=== PATIENT | female | born 1925 | race Caucasian/White ===

== ENCOUNTER 2016-08-23 05:23 | Inpatient (IN) | payer MEDICARE, OTHER ==
[~2016-08-23] VITALS: Ht 157.5 cm; Wt 49.7 kg
[~2016-08-23 05:23] MED LIST: ACET-2047 PO; ALEN70TA30 PO; ASPI81TA3 PO; CALC-450 PO; DOCU-144 PO; FENO145T25 PO; FURO20TA PO; GLIP-95 PO; LEVEM SC; LISI-313 PO; MTF1000T PO; MULT9LIQ4 PO; SIMV20TA97 PO
[2016-08-23] MEDS ORDERED: SOD CHLORIDE 0.9% 1,000 ML IV STA (05:31)
[2016-08-23] MEDS ORDERED: HYDROCHLOROTHIAZIDE 25 MG TAB PO ONE (06:00)
[2016-08-23 06:06] LABS: BASOPHILS % 0.3 % (0.0-2.0); HEMATOCRIT 42.8 % (37.0-47.0); LYMPHOCYTES # 0.9 10^3/ul (0.8-2.9); LYMPHOCYTES % 6.2 % (15.0-51.0); MEAN CORPUSCULAR HEMOGLOBIN 30.5 pg (29.0-33.0); MEAN CORPUSCULAR HGB CONC 32.8 g/dl (32.0-37.0); MEAN CORPUSCULAR VOLUME 93.1 fl (82.0-101.0); MEAN PLATELET VOLUME 8.4 fl (7.4-10.4); MONOCYTE # 0.9 10^3/ul (0.3-0.9); MONOCYTES % 6.4 % (0.0-11.0); NEUTROPHIL # 12.5 10^3/ul (1.6-7.5); NEUTROPHILS % 87.1 % (39.0-77.0); PLATELET COUNT 360 10^3/UL (140-440); RED CELL DISTRIBUTION WIDTH 13.9 % (11.5-14.5); UNCORRECTED WBC 14.4 10^3/ul (4.8-10.8); WHITE BLOOD COUNT 14.4 10^3/ul (4.8-10.8)
[2016-08-23 06:09] LABS: CONDITION 1
[2016-08-23 06:14] LABS: POTASSIUM 3.9 mmol/L (3.5-5.1)
[2016-08-23 06:16] LABS: ALBUMIN/GLOBULIN RATIO 1.21; BILIRUBIN,INDIRECT 0.2 mg/dl (0-1.1); BILIRUBIN,TOTAL 0.2 mg/dl (0.2-1.3); CREATININE 0.83 mg/dl (0.44-1.00); TOTAL PROTEIN 7.3 g/dl (6.1-8.1)
[2016-08-23 06:17] LABS: CALCIUM 9.9 mg/dl (8.4-10.2)
[2016-08-23 06:35] LABS: TROPONIN-I 1.14 ng/ml (0.00-0.12)
[2016-08-23 06:37] LABS: ADD UMIC YES; URINE BILIRUBIN (Dip) NEGATIVE (NEGATIVE); URINE BLOOD (Dip) TRACE (NEGATIVE); URINE COLOR YELLOW (YELLOW); URINE KETONES (Dip) 15 (NEGATIVE); URINE LEUKOCYTE ESTERASE (Dip) NEGATIVE (NEGATIVE); URINE NITRITE (Dip) NEGATIVE (NEGATIVE); URINE TOTAL PROTEIN (Dip) 1+ (NEGATIVE); URINE UROBILINOGEN (Dip) 0.2 E.U./dL (0.1-1.0)
[2016-08-23 06:44] LABS: BACTERIA,URINE MODERATE; SQUAMOUS EPITHELIAL CELL,UR MANY; URINE RBCS 0-2 /HPF (0)
--- NOTE | 2016-08-23 06:54 | RADRPT ---
PROCEDURE: XR Chest. CLINICAL INDICATION: Abdominal pain TECHNIQUE: 2 AP views of the chest were obtained COMPARISON: Chest x-ray dated 12/28/2015 FINDINGS: Lung volumes are low. There are right lower lobe interstitial opacities. No pleural effusion or pn eumothorax is seen. The cardiomediastinal silhouette is mildly enlarged . Calcifications are seen within the aortic arch. The osseous structures demonstrate senescent changes. IMPRESSION: 1. Right lower lobe interstitial opacities, new finding when compared to the prior examination, may reflect asymmetric interstitial edema or pneumonitis. 2. Mild cardiomegaly and aortic atherosclerosis. RPTAT: HH .Lacie Calderon MD, MD Date Time Electronically viewed and signed by .Lacie Calderon MD, on 08/23/2016 06:53 .G/
[2016-08-23] MEDS ORDERED: CEFEPIME 2GM/50 ML (PMX) 50 ML IVPB STA (06:58)
[2016-08-23] MEDS ORDERED: SODIUM CHLORIDE 0.9% 1L BAG IV* STA (06:58)
[2016-08-23] MEDS ORDERED: VANCOMYCIN 1 GM (PMX) 250 ML IVPB ONE (07:00)
[2016-08-23] MEDS ORDERED: LEVOFLOXACIN 750MG/D5W (PMX) 150 ML IVPB STA (07:09)
--- NOTE | 2016-08-23 07:09 | ERA ---
ER Documentation Chief Complaint Date/Time DATE: 08/23/16 TIME: 06:40 Chief Complaint PER SNF MORE ALTERED THAN NORMAL UNKNOWN LAST WELL TIME. HPI Patient unable to give a coherent history due to cognitive impairment. History is obtained primarily from transferring medics, review of SNF and previous medical records and her daughter who arrived later. 89-year-old female with a history of hypertension, diabetes, dyslipidemia, CVA with left hemiparesis, recurrent urinary tract infections, hypothyroidism and dementia sent to the ED by ambulance from [facility] for evaluation of altered mental status as she is "more altered than usual". Patient is alert and cooperative. Denies chest pain or palpitations. No shortness of breath but has had a non-productive cough for over 1 week. Denies abdominal pain, nausea, vomiting, diarrhea or constipation. No headache or neck pain. Denies leg pain or swelling. No dysuria, polyuria, hematuria or flank pain. No fevers or chills. Patient states she feels well. ROS All systems reviewed and are negative except as per history of present illness. Medications Home Meds Reported Medications Cran/Vitc/Mannose/Inulin/Brom (Uti-Stat Liquid) 3,875 Mg/30 Ml Liquid, 3875 MG PO BID 08/23/16 Acetaminophen* (Acetaminophen*) 500 MG Extra Strength Tablet, 1000 MG PO Q4 Y for PAIN AND OR ELEVATED TEMP, TAB 08/23/16 Sennosides* (Senna Lax*) 8.6 Mg Tablet, 2 TAB PO QHS, TAB 08/23/16 Magnesium Hydroxide* (Milk Of Magnesia*) 400 Mg/5 Ml Oral.susp, 30 ML PO DAILY Y for CONSTIPATION, ML 08/23/16 Lidocaine (Lidoderm) 1 Each Adh..patch, 1 EACH TP DAILY 12 HOURS ON 12 HOURS OFF 08/23/16 Dextrose (Glucose Gel) 38 Gm Gel..gram., 22.5 GM PO PRN 08/23/16 Glucagon,Human Recombinant (Glucagon Emergency Kit) 1 Mg Kit, 1 MG IJ PRN, KIT 08/23/16 Na Phos,M-B/Na Phos,Di-Ba (Enema) 133 Ml Enema, 133 ML RC EVERY 3 DAYS Y for CONSTIPATION, ENEMA 08/23/16 Bisacodyl* (Bisacodyl*) 10 Mg Supp, 10 MG NH EVERY 48 HOURS Y for CONSTIPATION, SUPP 08/23/16 Cranberry Extract (Cranberry) 425 Mg Capsule, 425 MG PO DAILY, CAP 08/23/16 Insulin Detemir (Levemir) 100 Unit/1 Ml Vial, 15 UNIT SC QHS, VIAL 08/23/16 Acetaminophen* (Acetaminophen*) 650 Mg Tablet, 650 MG PO Q4 Y for PAIN AND OR ELEVATED TEMP, #30 TAB 12/28/15 Fenofibrate Nanocrystallized* (Tricor*) 145 Mg Tablet, 145 MG PO QAM, TAB 12/28/15 Simvastatin* (Zocor*) 20 Mg Tablet, 20 MG PO QHS, #30 TAB 12/28/15 Calcium Carbonate/Vitamin D3 (Oyster Shell Calcium-Vit D Tab) 1 Tab Tablet, 1 TAB PO BID, TAB 12/28/15 Multivit &Minerals/Ferrous Fum (MULTIVITAMIN LIQUID) 9 Mg/15 Ml Liquid, 3 MG PO QAM 12/28/15 Metformin* (Glucophage*) 1,000 Mg Tablet, 1000 MG PO BID, #60 TAB 12/28/15 Alendronate Sodium* (Fosamax*) 70 Mg Tablet, 70 MG PO ON TUESDAYS, #4 TAB 12/28/15 Docusate Sodium* (Colace*) 100 Mg Capsule, 200 MG PO QHS Y for CONSTIPATION, # 30 CAP 12/28/15 Aspirin* (Aspirin* Chew) 81 Mg Tab.chew, 81 MG PO DAILY, TAB.CHEW 12/28/15 Discontinued Reported Medications Lisinopril* (Lisinopril*) 5 Mg Tablet, 5 MG PO DAILY, #30 TAB 12/28/15 Insulin Detemir* (Levemir*) 100 U/Ml Vial, 30 UNIT SC HS, VIAL 12/28/15 Insulin Detemir* (Levemir*) 100 U/Ml Vial, 15 UNIT SC DAILY, VIAL 12/28/15 Furosemide* (Lasix*) 20 Mg Tablet, 20 MG PO DAILY, TAB 12/28/15 Glipizide* (Glipizide*) 10 Mg Tablet, 20 MG PO BID, TAB 12/28/15 Allergies Allergies: Coded Allergies: No Known Allergy (Unverified , 08/23/16) PMhx/Soc Reviewed in chart. As per HPI. History of Surgery: No Anesthesia Reaction: No Hx Neurological Disorder: Yes (DEMENTIA) Hx Respiratory Disorders: No Hx Cardiac Disorders: Yes (HTN) Hx Psychiatric Problems: Yes (DEPRESSION) Hx Miscellaneous Medical Probl: Yes (DM, HYPERTHYROID) Hx Alcohol Use: No Hx Substance Use: No Hx Tobacco Use: No Smoking Status: Unknown if ever smoked FmHx No stroke or cancer as per daughter Physical Exam Vitals Vital Signs Date Time Temp Pulse Resp B/P Pulse Ox O2 Delivery O2 Flow Rate FiO2 08/23/16 15:14 98 19 158/77 100 Nasal Cannula 2.0 08/23/16 12:26 90 18 150/70 100 Nasal Cannula 2.0 08/23/16 10:45 97.9 87 15 156/66 100 Nasal Cannula 3.0 08/23/16 08:48 86 19 142/102 100 Room Air 3.0 Nasal Cannula 08/23/16 07:00 100 22 125/103 100 Nasal Cannula 3.0 08/23/16 05:40 Nasal Cannula 2 08/23/16 05:28 96.0 130 18 129/59 93 Physical Exam Const: Alert, elderly but in no acute distress. Head: Atraumatic Eyes: Normal Conjunctiva ENT: Normal External Ears, Nose and Mouth. Pharynx: MM moist. No erythema or exudate. Neck: Full range of motion. No JVD. No meningismus. Resp: Breath sounds diminished at the bases with scattered rhonchi but no wheezes. Cardio: Tachycardia. Regular rate and rhythm, no murmurs or gallops Abd: Soft, non tender, non distended. Normal bowel sounds. No rebound or guarding. No masses. Skin: No petechiae or rashes Back: No midline or flank tenderness Ext: No cyanosis, or edema Neur: Awake and alert. Mental status normal for age. Left-sided weakness. Psych: Normal Mood and Affect Result Diagram: 08/23/16 0545 08/23/1645 Results 24 hrs Laboratory Tests Test 08/23/16 05:45 08/23/16 06:10 08/23/16 07:15 08/23/16 10:15 Activated Partial Thromboplast Time 27.5Sec Alanine Aminotransferase (ALT/SGPT) 28IU/L Albumin 4.0g/dl Albumin/Globulin Ratio 1.21 Alkaline Phosphatase 42IU/L Anion Gap 20 Aspartate Amino Transf (AST/SGOT) 28IU/L Basophils # 0.010^3/ul Basophils % 0.3% Blood Urea Nitrogen 30mg/dl Calcium Level 9.9mg/dl Carbon Dioxide Level 25mmol/L Chloride Level 106mmol/L Creatinine 0.83mg/dl Direct Bilirubin 0.00mg/dl Eosinophils # 0.010^3/ul Eosinophils % 0.0% Globulin 3.30g/dl Glucose Level 237mg/dl Hematocrit 42.8% Hemoglobin 14.0g/dl INR International Normalized Ratio 0.92 Indirect Bilirubin 0.2mg/dl Lipase 56U/L Lymphocytes # 0.910^3/ul Lymphocytes % 6.2% Mean Corpuscular Hemoglobin 30.5pg Mean Corpuscular Hemoglobin Concent 32.8g/dl Mean Corpuscular Volume 93.1fl Mean Platelet Volume 8.4fl Monocytes # 0.910^3/ul Monocytes % 6.4% Neutrophils # 12.510^3/ul Neutrophils % 87.1% Nucleated Red Blood Cells # 0.010^3/ul Nucleated Red Blood Cells % 0.0/100WBC Platelet Count 01294^3/UL Potassium Level 3.9mmol/L Prothrombin Time 12.4Sec Prothrombin Time Ratio 1.0 Red Blood Count 4.6010^6/ul Red Cell Distribution Width 13.9% Sodium Level 147mmol/L Total Bilirubin 0.2mg/dl Total Protein 7.3g/dl Troponin I 1.140ng/ml 1.790ng/ml White Blood Count 14.410^3/ul Urine Bacteria MODERATE Urine Bilirubin NEGATIVE Urine Calcium Oxalate Crystals FEW Urine Clarity HAZY Urine Color YELLOW Urine Glucose 0.1%% Urine Hemoglobin TRACE Urine Ketones 15 Urine Leukocyte Esterase NEGATIVE Urine Microscopic RBC 0-2/HPF Urine Microscopic WBC 0-2/HPF Urine Nitrite NEGATIVE Urine Specific [place] >=1.030 Urine Squamous Epithelial Cells MANY Urine Total Protein 1+ Urine Urobilinogen 0.2 E.U./dL Urine pH 5.0 Free Thyroxine 1.72ng/dl Lactic Acid Level 3.0mmol/L 4.1mmol/L Thyroid Stimulating Hormone (TSH) 0.825MIU/L Creatine Kinase 111IU/L Creatine Kinase Index 11.4 Creatinine Kinase MB (Mass) 12.60ng/ml Current Medications Medications (Trade) Dose Ordered Sig/Karthik Route PRN Reason Start Time Stop Time Status Last Admin Dose Admin Sodium Chloride (NS) 1,000 ml @ 1,000 mls/hr Q1H STAT IV 08/23/16 05:31 08/23/16 06:30 DC 08/23/16 05:48 Hydrochlorothiazide (Hydrochlorothiazide) 25 mg ONCE ONCE PO 08/23/16 06:00 08/23/16 06:01 DC Sodium Chloride 1550 ml 1,550 ml BOLUS OVER 2 HOURS STAT IV* 08/23/16 06:58 08/23/16 07:00 DC 08/23/16 07:04 Cefepime HCl 50 ml @ 100 mls/hr ONCE STAT IVPB 08/23/16 06:58 08/23/16 07:27 DC 08/23/16 07:25 Vancomycin HCl 250 ml @ 125 mls/hr ONCE ONCE IVPB 08/23/16 07:00 08/23/16 08:59 DC 08/23/16 08:41 Levofloxacin/ Dextrose (Levaquin 750 Mg/ D5W 150 ml (Pmx)) 150 ml @ 100 mls/hr ONCE STAT IVPB 08/23/16 07:09 08/23/16 08:38 DC 08/23/16 07:58 Aspirin (Aspirin) 325 mg ONCE ONCE PO 08/23/16 07:30 08/23/16 07:31 DC 08/23/16 07:25 Ondansetron HCl (Zofran Inj) 4 mg ER BRIDGE PRN IV NAUSEA AND/OR VOMITING 08/23/16 10:00 08/24/16 09:59 Acetaminophen (Tylenol Tab) 650 mg ER BRIDGE PRN PO MILD PAIN/FEVER 08/23/16 10:00 08/24/16 09:59 Acetaminophen (Tylenol Tab) 1,000 mg Q4 PRN PO PAIN AND OR ELEVATED TEMP 08/23/16 16:00 Acetaminophen (Tylenol Tab) 650 mg Q4 PRN PO PAIN AND OR ELEVATED TEMP 08/23/16 16:00 Aspirin (Aspirin) 81 mg DAILY PO 08/24/16 09:00 Bisacodyl (Dulcolax Supp) 10 mg DAILY PRN NH CONSTIPATION 08/23/16 16:00 Glucose (Glutose) 22.5 gm PRN PO 08/23/16 16:00 Docusate Sodium (Colace) 200 mg QHS PRN PO CONSTIPATION 12/23/16 16:00 Fenofibrate (Tricor) 145 mg QAM PO 08/24/16 09:00 Lidocaine (Lidoderm) 1 patch DAILY TD 08/24/16 09:00 Magnesium Hydroxide (Milk Of Mag) 30 ml DAILY PRN PO CONSTIPATION 08/23/16 16:00 Sodium Biphosphate/ Sodium Phosphate (Fleet Enema) 133 ml DAILY PRN NH CONSTIPATION 08/23/16 16:00 Senna (Senokot) 2 tab QHS PO 08/23/16 21:00 Miscellaneous Information 1 tab BID PO 08/23/16 21:00 UNV Miscellaneous Information 15 unit QHS SC 08/23/16 21:00 UNV Miscellaneous Information 3 mg QAM PO 08/24/16 09:00 UNV Miscellaneous Information 20 mg 20 mg QHS PO 08/23/16 21:00 UNV Cefepime HCl (Maxipime 2gm/50 ml (Pmx)) 50 ml @ 100 mls/hr Q12 IVPB 08/23/16 21:00 UNV Vancomycin HCl VANCOMYCIN PER PHARMACY PER PROTOCOL XX 08/23/16 16:00 UNV Sodium Chloride (NS) 1,000 ml @ 75 mls/hr [id number] IV 08/23/16 16:30 UNV IV Flush (NS 3 ml) 3 ml PER PROTOCOL IV 08/23/16 16:30 UNV Ondansetron HCl (Zofran Inj) 4 mg Q6H PRN IV NAUSEA AND/OR VOMITING 08/23/16 16:30 UNV Nitroglycerin (Nitroglycerin (Sl Tab) 0.4 Mg) 1 tab Q5M PRN SL CHEST PAIN 08/23/16 16:30 UNV Acetaminophen (Tylenol Tab) 650 mg Q6H PRN PO PAIN LEVEL 1-3 OR FEVER 08/23/16 16:30 UNV Morphine Sulfate (morphine) 2 mg Q4H PRN IV PAIN LEVEL 7-10 08/23/16 16:30 UNV Docusate Sodium (Colace) 100 mg Q12H PRN PO CONSTIPATION 08/23/16 16:30 UNV Magnesium Hydroxide (Milk Of Mag) 30 ml DAILY PRN PO CONSTIPATION 08/23/16 16:30 UNV Bisacodyl (Dulcolax Supp) 10 mg DAILY PRN NH CONSTIPATION 08/23/16 16:30 UNV Famotidine (Pepcid) 20 mg Q12 PO 08/23/16 21:00 UNV Enoxaparin Sodium (Lovenox) 40 mg DAILY SC 08/24/16 09:00 UNV RHYTHM STRIP INTERPRETATION: Time: 06:45. Sinus tachycardia. Ventricular rate 108. No ectopy. Indication: Altered level of consciousness. EKG: TIME: 05: 34. Sinus tachycardia. Ventricular rate 122. Normal NH and QRS. Left axis deviation. No acute ST-T wave changes. No ectopy. EP Interpretation: Abnormal EKG. EKG: TIME: 07:39. Sinus tachycardia. Ventricular rate 104. Normal NH and QRS. No acute ST-T wave changes. No ectopy. EP Interpretation: Abnormal EKG. IMAGING: PROCEDURE: XR Chest. CLINICAL INDICATION: Abdominal pain TECHNIQUE: 2 AP views of the chest were obtained COMPARISON: Chest x-ray dated 12/28/2015 FINDINGS: Lung volumes are low. There are right lower lobe interstitial opacities. No pleural effusion or pneumothorax is seen. The cardiomediastinal silhouette is mildly enlarged . Calcifications are seen within the aortic arch. The osseous structures demonstrate senescent changes. IMPRESSION: 1. Right lower lobe interstitial opacities, new finding when compared to the prior examination, may reflect asymmetric interstitial edema or pneumonitis. 2. Mild cardiomegaly and aortic atherosclerosis. RPTAT: HH .Lacie Calderon MD, MD Date Time Electronically viewed and signed by .Lacie Calderon MD, MD on 08/23/2016 06 :53 .G/ Procedures/MDM DOCUMENTS REVIEWED: ED nurse, prior records, jail facility records SEPSIS MANAGEMENT: Severe Sepsis Criteria: Multiple SIRS criteria including tachycardia, tachypnea and leukocytosis Infectious source: Pneumonia End organ damage indicated by: Lactate: 3.0 mmol/L Time of recognition of severe sepsis: 07: 00 Within 3 hours of recognition: Blood cultures x 2 before broad-spectrum antibiotics for health care acquired pneumonia 30 ml/kg NS bolus over one hour Completed Initial lactate 3.0 mmol/L Repeat lactate 4.2 mmol/L Septic Shock Assessment: Lactate 4.1mmol/L No hypotension Volume Re-assessment for Septic Shock (post 30 ml/kg bolus over 1 hour): Temp:97.9, BP:156/66, HR: 87, RR: 15, Pox: 100% on 3L Heart Regular rate & rhythm Lungs BS equal with scattered rhonchi but no rales or wheezes Skin Warm & dry. No Rash Cap Refill Less than 2 seconds Peripheral pulses 4+ in all extremities Critical Care Note: Critical care time not including other separately reportable procedures: 35 minutes Emergent fluid management while maintaining close respiratory support. Provision of immediate and broad-spectrum antibiotic therapy. Simultaneous assessment for possible sources in order to direct targeted therapy. Consideration for invasive and chemical support to prevent cardiopulmonary collapse in this patient with septic shock and NSTEMI. MEDICAL DECISION MAKIN-year-old female with a history of hypertension, diabetes, dyslipidemia, CVA with left hemiparesis, recurrent urinary tract infections, hypothyroidism and dementia sent to the ED by ambulance from [facility] for evaluation of altered mental status as she is "more altered than usual". Tachycardia, tachypnea and leukocytosis consistent with systemic inflammatory response syndrome with lactate of 3.0 consistent with severe sepsis secondary to pneumonia. Normal saline 30 cc/kg bolus given over 1 hour and antibiotics given for healthcare acquired acquired pneumonia after cultures. Repeat lactate increased to 4.1 consistent with septic shock. Elevated troponin but no acute ischemic EKG changes or chest pain consistent with NSTEMI. Aspirin given; heparin deferred as per Dr. Morgan. Hyperglycemia without DKA or HONK. Patient's infectious symptoms have not stabilized and the patient is at risk of rapid decompensation. The patient will be admitted to telemetry for antibiotic therapy pending cultures, urgent cardiology consult, further evaluation and management. Counseled patient and daughter regarding diagnosis, diagnostic results and plan for admission. CALLS/CONSULTS: Time 08:05, Dr. Morgan, Recommends Tele admit. PATIENT CARE TRANSITIONED: Time: 09:30, Dr. Morgan Departure Diagnosis: Primary Impression: Septic shock Additional Impressions: Pneumonia Qualified Code: J18.9 - Pneumonia of right lower lobe due to infectious organism NSTEMI (non-ST elevated myocardial infarction) Diabetes mellitus type 2 in nonobese Altered mental status, unspecified JANELLE GREER MD Aug 23, 2016 07:09
[2016-08-23] MEDS ORDERED: LEVEM SC (07:26)
[2016-08-23] MEDS ORDERED: CRAN425C PO (07:27)
[2016-08-23 07:28] LABS: INR 0.92; PROTIME 12.4 Sec (12.2-14.2)
[2016-08-23 07:29] LABS: PARTIAL THROMBOPLASTIN TIME 27.5 Sec (25.0-35.0)
[2016-08-23] MEDS ORDERED: DULR PR (07:29)
[2016-08-23] MEDS ORDERED: ASPIRIN 325 MG TAB PO ONE (07:30)
[2016-08-23] MEDS ORDERED: NA P133E3 RC (07:30)
[2016-08-23] MEDS ORDERED: GLUC1KIT IJ (07:31)
[2016-08-23] MEDS ORDERED: DEXT38GE15 PO (07:32)
[2016-08-23] MEDS ORDERED: LIDO700A6 TP (07:33)
[2016-08-23] MEDS ORDERED: MAGN400O4 PO (07:34)
[2016-08-23] MEDS ORDERED: SENN-53 PO (07:34)
[2016-08-23] MEDS ORDERED: ACET-141 PO (07:35)
[2016-08-23] MEDS ORDERED: CRAN3875 PO (07:36)
[2016-08-23] MEDS ORDERED: ONDANSETRON 4 MG INJ IV PRN ×2 (10:00→16:30)
[2016-08-23] MEDS ORDERED: ACETAMINOPHEN 325 MG TAB PO PRN ×2 (10:00→16:30)
[2016-08-23 10:52] LABS: CK-MB 12.6 ng/ml (0.0-2.4)
[2016-08-23 11:01] LABS: TROPONIN-I 1.79 ng/ml (0.00-0.12)
[2016-08-23] MEDS ORDERED: GLUCOSE GEL 15 GRAM TUBE PO SCH (16:00)
[2016-08-23] MEDS ORDERED: MAGNESIUM HYDROXIDE 30ML CUP PO PRN ×2 (16:00→16:30)
[2016-08-23] MEDS ORDERED: NA PHOSPHATE/BIPHOS 133 ML ENEMA PR PRN (16:00)
[2016-08-23] MEDS ORDERED: VANCOMYCIN IV PER PHARMACY XX SCH (16:00)
[2016-08-23] MEDS ORDERED: BISACODYL 10 MG SUPP PR PRN (16:00)
[2016-08-23] MEDS ORDERED: DOCUSATE SODIUM 100 MG CAP PO PRN ×2 (16:00→16:30)
[2016-08-23] MEDS ORDERED: NACL 0.9% 3 ML SYG IV SCH (16:30)
[2016-08-23] MEDS ORDERED: NITROGLYCERIN (SL) 0.4 MG TAB SL PRN (16:30)
[2016-08-23] MEDS ORDERED: METOPROLOL 5 MG INJ IV PRN (16:30)
[2016-08-23] MEDS ORDERED: morphine 2 MG INJ IV PRN (16:30)
[2016-08-23 18:10] LABS: CK-MB 9.57 ng/ml (0.0-2.4)
[2016-08-23 18:15] LABS: TROPONIN-I 2.2 ng/ml (0.00-0.12)
[2016-08-23] MEDS: SOD CHLORIDE 0.9% 1,000 ML IV SCH (18:37)
--- NOTE | 2016-08-23 19:23 | CONS ---
DATE OF ADMISSION: 08/23/2016 DATE OF CONSULTATION: 08/23/2016 REASON FOR CONSULTATION: Non-ST elevation myocardial infarction. REQUESTING PHYSICIAN: Dr. Morgan and Dr. Santamaria. HISTORY OF PRESENT ILLNESS: Ms. Ruiz is an 89-year-old female with a history of dementia, contract ures of the upper extremities, hypothyroidism, diabetes mellitus, dysphagia, hypertension, dyslipide mitzi, and osteoporosis who presented from her chronic care facility with worsening mental state, down from her baseline. Upon arrival in the emergency department, temperature of 96, blood pressure 129 /59, pulse 130, respiratory rate 18, saturating 92%. The patient's labs revealed sodium 147, potass ium 3.9, creatinine 1.8, BUN of 30, AST 28, ALT 28. Troponin 1.1. Lipase 56. INR 0.92. UA border line. The patient underwent a chest x-ray revealing right lower lobe interstitial opacities, mild c ardiomegaly, aortic atherosclerosis. The patient's electrocardiogram revealed sinus tachycardia, ra te of 122, with left axis deviation, poor R-wave progression across the anterior precordial leads, a nd nonspecific symptomatic. The patient subsequently has been treated with aspirin, levofloxacin, v ancomycin, cefepime, IV fluid hydration, and now awaits admit to the floor. The patient had troponi ns trended going from 1.14 to 1.79. The patient, at this time, is sleeping, difficult to arouse, an d does not respond to questions pertaining to chest pain or shortness of breath. PAST MEDICAL HISTORY: As above in HPI. MEDICATIONS CURRENTLY IN HOSPITAL: 1. Aspirin 81 mg daily. 2. Tricor 145 mg daily. 3. Lidoderm patch. 4. Lovenox 40 mg subcutaneous daily. 5. Idana. 6. Cefepime. 7. Pepcid. 8. IV fluid hydration 75 mL an hour. 9. Tylenol p.r.n. 10. Morphine p.r.n. 11. Colace p.r.n. 12. Dulcolax p.r.n. 13. Vancomycin. ALLERGIES: NO KNOWN DRUG ALLERGIES. SOCIAL HISTORY: No tobacco, ETOH, or illicit drug use. FAMILY HISTORY: No history of sudden cardiac or early CAD. REVIEW OF SYSTEMS: As above in HPI. CONSTITUTIONAL: No fevers, chills. PULMONARY: No current signs of respiratory compromise. No pneumonia by chest x-ray. GASTROINTESTINAL: No vomiting. GENITOURINARY: No hematuria. MUSCULOSKELETAL: Degenerative joint disease. PSYCHIATRIC: No documented psychiatric history. NEUROLOGIC: Dementia with altered mental state from demented state. ENDOCRINE: No documented history of diabetes mellitus. PHYSICAL EXAMINATION: VITAL SIGNS: Temperature 97.9, blood pressure 158/77, pulse 98, respiratory rate 19, saturating 100 % on 2 liters. GENERAL: The patient is sleeping, somewhat difficult to arouse. NECK: No jugular venous distention. CHEST: Upper airway sounds are rhonchorous sounds. Mildly decreased breath sounds at bases bilater ally. HEART: Tachycardic, regular rhythm, normal S1, S2, I/ systolic murmur. ABDOMEN: Positive bowel sounds, soft. EXTREMITIES: Multiple excoriations, 1+ pulses bilaterally, posterior tibial, and no significant low er extremity edema. LABORATORY DATA: As above in HPI. No further labs for my review at this time. IMAGING STUDIES: As above in HPI. No further imaging studies for my review at this time. ECG: As above in HPI. No further electrocardiograms for my review at this time. IMPRESSION: 1. Positive troponin consistent with non-ST elevation myocardial infarction. Possibly demand event in the setting of tachycardia. 2. Abnormal electrocardiogram with nonspecific ST and T abnormalities and poor R-wave progression a cross the anterior precordial leads in the setting of positive troponins. 3. Tachycardia consistent with sinus tachycardia in the setting of volume depletion. 4. Hypertension, mildly uncontrolled. 5. Altered mental state/encephalopathy. 6. Dyslipidemia. 7. Pneumonia by chest x-ray. Possible reason for patient's possible demand ischemia. 8. Diabetes mellitus. 9. Possible urinary tract infection. RECOMMENDATIONS: 1. At this time, would admit patient to telemetry monitoring to follow rhythm and rate control clos sage. 2. Would continue to trend the patient's cardiac enzymes, assess for any significant ongoing cardia c damage. 3. Continue the patient's aspirin prophylaxis for cardiovascular events. 4. We will give the patient beta alexandro as tolerated and able to swollen, and if not, we will give patient IV push p.r.n. beta alexandro to improve heart rate control. 5. Check a fasting lipid panel for general risk stratification and adjust the patient's lipid-lower ing medication as necessary. 6. Check a 2D echocardiogram to further assess patient's ejection fraction, wall motion, rule out a ny major valve abnormalities. 7. Continue the patient's antibiotics for treatment of pneumonia, possibly UTI, and follow up all c ulture data. 8. Continue the patient's IV fluid hydration in the setting of possible dehydration. Thank you for allowing me to take part in the care of this patient. I will continue to follow along very closely with you. Further recommendations will be made as the patient progresses through her inpatient hospital clinical course. Dictated By: RJ SOTO/FARZANA Conf#: [id number] DID#: [id number]
--- NOTE | 2016-08-23 19:52 | HP ---
DATE OF ADMISSION: 08/23/2016 HISTORY OF PRESENT ILLNESS: History is obtained from medical record and after discussion with the martha hunter's daughter. The patient is a poor historian due to old CVA. The patient is an 89-year-old f emale well known to me from previous admission. The patient has history of hypertension, diabetes, dyslipidemia, CVA with left hemiplegia. The patient also has dysphagia and is being fed p.o. diet. The patient, according to daughter, has been having cough for the last few weeks, and today she was noted to be altered more than usual. The patient apparently did not have any fever or chills. No reported vomiting, no reported diarrhea, no reported leg edema. No reported acute skin rash. The martha hunter did not have any seizure. No reported wheezing. The patient was seen in the ER and was note d to have white count of 14.4 with 87% neutrophils. Chest x-ray was positive for pneumonia in the r ight lower lobe. Lactic acid level was 3 upon presentation. The patient, however, was also noted t o have a troponin of 1.7. TSH and T4 within normal limits. The patient is being admitted for [facility] evaluation and management. REVIEW OF SYSTEMS: Limited as the patient is confused. No reported bleeding from any site. No rep ort any acute joint swelling. The patient is nonambulatory and spends her time in wheelchair and in the bed. The patient is able to eat pureed diet, and her albumin recently was 3.2. PAST MEDICAL HISTORY: As stated above. In addition, the patient has history of CVA and dementia. SOCIAL HISTORY: No smoking, no alcohol. MEDICATIONS: List prior to admission reviewed and reconciled. PHYSICAL EXAMINATION: GENERAL: The patient is lethargic but arousable. VITAL SIGNS: Temperature 97.9, pulse 87, respirations 15, blood pressure 156/66, O2 saturation 100% on 2 liters nasal cannula. HEENT: Atraumatic, normocephalic. Conjunctivae and lids normal. Extraocular movements intact. No se and ears normal. NECK: Supple. No mass, no thyromegaly. CHEST: Revealed diminished air entry at the right lung base. No use of accessory muscles. CARDIOVASCULAR: S1, S2 normal. No murmur, gallop, or rub. ABDOMEN: Soft, nondistended, nontender. No palpable mass. EXTREMITIES: No leg edema. The patient has contracture on the left side. Pedal pulses feeble. NEUROLOGIC: The patient is lethargic but arousable and has dense left hemiplegia. Only intermitten tly follows simple commands. LABORATORY DATA: Done this morning, WBC 14.4, hemoglobin 14, neutrophils 87. Sodium 147, potassium 3.9, BUN 30, creatinine 1.8, glucose 237, calcium 9.9, AST 28, ALT 28, alkaline phosphatase 42. Tr oponin 1.1. Lactic acid 3.0. IMPRESSION: 1. Healthcare facility acquired pneumonia. 2. Non-ST elevation myocardial infarction. 3. Hypertension. 4. Diabetes mellitus. 5. Dyslipidemia. 6. Old cerebrovascular accident. 7. Toxic metabolic encephalopathy. PLAN: The patient admitted on telemetry floor. The patient will be started on pureed diet and will be given IV vancomycin and cefepime and will be given IV fluids. The patient will be given aspirin , beta alexandro, and statins. The patient will be started on Levemir with sliding scale insulin. I spoke with the patient's daughter, and code status was discussed. She requested the patient be made DNR. A cardiac consult from Dr. Lou has also been obtained. The patient will have echocardiog edel, serial troponin. Further recommendation depends on the patient's hospital course. Dictated By: VALENTIN GASTON/FARZANA Conf#: [id number] DID#: [id number]
[2016-08-23] MEDS: LEVALBUTEROL (NEB) 0.63 MG/3 ML AMP HHN SCH (20:03)
[2016-08-23] MEDS: 1/2 NS + KCL 20 MEQ 1,000 ML IV SCH (20:23)
[2016-08-23] MEDS ORDERED: CALCIUM CARBONATE PO SCH (21:00)
[2016-08-23] MEDS ORDERED: VITAMIN D3 PO SCH (21:00)
[2016-08-23] MEDS ORDERED: [UNRECOGNIZED DRUG - OTHER] PO SCH (21:00)
[2016-08-23] MEDS ORDERED: NON-FORMULARY/PATIENT OWN MED (Simvastatin* (Zocor*) 20 MG) PO SCH (21:00)
[2016-08-23] MEDS ORDERED: CEFEPIME 2GM/50 ML (PMX) 50 ML IVPB SCH (21:00)
[2016-08-23] MEDS ORDERED: FAMOTIDINE 20 MG TAB PO SCH (21:00)
[2016-08-23] MEDS ORDERED: INSULIN DETEMIR 15 UNIT SC SCH (21:00)
[2016-08-23] MEDS: CEFEPIME 2GM/50 ML (PMX) 50 ML IVPB SCH (21:15)
[2016-08-23] MEDS: ATORVASTATIN 10 MG TAB PO SCH (22:55)
[2016-08-23] MEDS: METOPROLOL 25 MG TAB PO SCH (22:56)
[2016-08-23] MEDS: SENNA TAB PO SCH (22:56)
[2016-08-23] MEDS: CALCIUM/VITAMIN D (500/200) TAB PO SCH (22:56)
[2016-08-23 22:58] LABS: CK-MB 7.21 ng/ml (0.0-2.4)
[2016-08-23 23:01] LABS: TROPONIN-I 2.02 ng/ml (0.00-0.12)
[2016-08-23] MEDS: INSULIN DETEMIR [LEVEMIR] 3ML CART SC SCH (23:19)
[2016-08-23 23:24] VITALS: TEMP 99
[2016-08-24] VITALS (10 sets, daily range): BP systolic 145–165; BP diastolic 64–71; PULSE 58–77; RESP 16–20; Ht 157.5 cm; Wt 49.7 kg
[2016-08-24] MEDS: SOD CHLORIDE 0.9% 1,000 ML IV SCH ×2 (05:50→15:47)
[2016-08-24 07:30] LABS: BASOPHIL # 0.1 10^3/ul (0.0-0.1); BASOPHILS % 0.4 % (0.0-2.0); EOSINOPHILS # 0.1 10^3/ul (0.0-0.5); EOSINOPHILS % 0.7 % (0.0-7.0); HEMATOCRIT 32.1 % (37.0-47.0); HEMOGLOBIN 10.6 g/dl (12.0-16.0); LYMPHOCYTES % 16.3 % (15.0-51.0); MEAN CORPUSCULAR HEMOGLOBIN 31.2 pg (29.0-33.0); MEAN CORPUSCULAR HGB CONC 33.2 g/dl (32.0-37.0); MEAN PLATELET VOLUME 8.2 fl (7.4-10.4); MONOCYTE # 0.6 10^3/ul (0.3-0.9); MONOCYTES % 5.3 % (0.0-11.0); NEUTROPHIL # 9.4 10^3/ul (1.6-7.5); NEUTROPHILS % 77.3 % (39.0-77.0); PLATELET COUNT 243 10^3/UL (140-440); RED BLOOD COUNT 3.41 10^6/ul (4.20-5.40); RED CELL DISTRIBUTION WIDTH 13.9 % (11.5-14.5); UNCORRECTED WBC 12.2 10^3/ul (4.8-10.8); WHITE BLOOD COUNT 12.2 10^3/ul (4.8-10.8)
[2016-08-24 07:34] LABS: ALBUMIN 3.1 g/dl (3.3-4.9)
[2016-08-24 07:35] LABS: POTASSIUM 3.8 mmol/L (3.5-5.1)
[2016-08-24 07:36] LABS: PHOSPHORUS 2.3 mg/dl (2.5-4.9)
[2016-08-24 07:37] LABS: ALBUMIN/GLOBULIN RATIO 1.1; BILIRUBIN,INDIRECT 0.2 mg/dl (0-1.1); BILIRUBIN,TOTAL 0.2 mg/dl (0.2-1.3); CREATININE 0.79 mg/dl (0.44-1.00); MAGNESIUM 1.6 mg/dl (1.7-2.5); TOTAL PROTEIN 5.9 g/dl (6.1-8.1)
[2016-08-24 07:38] LABS: CALCIUM 8.8 mg/dl (8.4-10.2)
[2016-08-24 07:54] LABS: CONDITION 1
[2016-08-24] MEDS: LEVALBUTEROL (NEB) 0.63 MG/3 ML AMP HHN SCH ×2 (08:15→19:30)
[2016-08-24] MEDS: ASPIRIN 81 MG TAB PO SCH (08:26)
[2016-08-24] MEDS: CALCIUM/VITAMIN D (500/200) TAB PO SCH ×2 (08:26→21:40)
[2016-08-24] MEDS: FENOFIBRATE 145 MG TAB PO SCH (08:26)
[2016-08-24] MEDS: FAMOTIDINE 20 MG TAB PO SCH (08:26)
[2016-08-24] MEDS: MULTIVITAMINS/MINERALS TAB PO SCH (08:26)
[2016-08-24] MEDS: LIDOCAINE 5% PATCH TD SCH (08:26)
[2016-08-24] MEDS: METOPROLOL 25 MG TAB PO SCH ×2 (08:27→21:40)
[2016-08-24] MEDS: ENOXAPARIN 40 MG/0.4 ML SYG SC SCH (08:30)
[2016-08-24] MEDS: 1/2 NS + KCL 20 MEQ 1,000 ML IV SCH (09:40)
[2016-08-24] MEDS: VANCOMYCIN 750 MG in SOD CHLORIDE 0.9% 150 ML IVPB SCH (12:35)
--- NOTE | 2016-08-24 12:47 | PN ---
Date/Time of Note Date/Time of Note DATE: 08/24/16 TIME: 12:45 Assessment/Plan VTE Prophylaxis VTE Prophylaxis Intervention: contraindicated Lines/Catheters IV Catheter Type (from Nrs): Peripheral IV Urinary Cath still in place: Yes Reason Cath still needed: skin wounds contaminated by urine Assessment/Plan Chief Complaint/Hosp Course 1. Healthcare facility acquired pneumonia - IV antibiotics 2. Non-ST elevation myocardial infarction - cardiology to evaluate 3. Hypertension - continue meds 4. Diabetes mellitus - monitor blood sugar Problems: Subjective 24 Hr Interval Summary Free Text/Dictation Patient has no complaints Exam/Review of Systems Vital Signs Vitals Vital Signs Date Time Temp Pulse Resp B/P Pulse Ox O2 Delivery O2 Flow Rate FiO2 08/24/16 11:25 98.7 60 20 145/64 98 08/24/16 08:30 Nasal Cannula 08/24/16 08:15 2.0 Intake and Output 08/23/16 08/23/16 08/24/16 15:00 23:00 07:00 Intake Total 200 ml Output Total 400 ml Balance -200 ml Exam Constitutional: frail, well developed Respiratory: diminished breath sounds Cardiovascular: regular rate and rhythm Gastrointestinal: non-tender, soft Results Result Diagram: 08/24/16 0642 08/24/16 0642 Results 24 hrs Laboratory Tests Test 08/23/16 17:30 08/23/16 21:50 08/23/16 23:04 08/24/16 06:42 Creatine Kinase 99 81 Creatine Kinase Index 9.7 8.9 Creatinine Kinase MB (Mass) 9.57 H 7.21 H Lactic Acid Level 2.2 Troponin I 2.200 *H 2.020 *H Bedside Glucose 187 Alanine Aminotransferase (ALT/SGPT) 31 Albumin 3.1 L Albumin/Globulin Ratio 1.10 Alkaline Phosphatase 29 L Anion Gap 14 Aspartate Amino Transf (AST/SGOT) 30 Basophils # 0.1 Basophils % 0.4 Blood Urea Nitrogen 20 Calcium Level 8.8 Carbon Dioxide Level 27 Chloride Level 108 Cholesterol Level 123 Cholesterol/HDL Ratio 2.0 Creatinine 0.79 Direct Bilirubin 0.00 Eosinophils # 0.1 Eosinophils % 0.7 Globulin 2.80 Glucose Level 73 # HDL Cholesterol 60 Hematocrit 32.1 #L Hemoglobin 10.6 #L Indirect Bilirubin 0.2 LDL Cholesterol, Calculated 47 Lymphocytes # 2.0 Lymphocytes % 16.3 Magnesium Level 1.6 L Mean Corpuscular Hemoglobin 31.2 Mean Corpuscular Hemoglobin Concent 33.2 Mean Corpuscular Volume 94.0 Mean Platelet Volume 8.2 Monocytes # 0.6 Monocytes % 5.3 Neutrophils # 9.4 H Neutrophils % 77.3 H Nucleated Red Blood Cells # 0.0 Nucleated Red Blood Cells % 0.0 Phosphorus Level 2.3 L Platelet Count 243 # Potassium Level 3.8 Red Blood Count 3.41 #L Red Cell Distribution Width 13.9 Sodium Level 145 H Total Bilirubin 0.2 Total Protein 5.9 #L Triglycerides Level 81 White Blood Count 12.2 H Test 08/24/16 07:55 08/24/16 11:21 Bedside Glucose 73 84 Medications Medications Current Medications Acetaminophen (Tylenol Tab) 1,000 mg Q4 PRN PO PAIN AND OR ELEVATED TEMP; Start 08/23/16 at 16:00 Acetaminophen (Tylenol Tab) 650 mg Q4 PRN PO PAIN AND OR ELEVATED TEMP; Start 08/23/16 at 16:00 Aspirin (Aspirin) 81 mg DAILY PO Last administered on 08/24/16at 08:26; Admin Dose 81 MG; Start 08/24/16 at 09:00 Glucose (Glutose) 22.5 gm PRN PO ; Start 08/23/16 at 16:00 Docusate Sodium (Colace) 200 mg QHS PRN PO CONSTIPATION; Start 08/23/16 at 16: 00 Fenofibrate (Tricor) 145 mg QAM PO Last administered on 08/24/16at 08:26; Admin Dose 145 MG; Start 08/24/16 at 09:00 Lidocaine (Lidoderm) 1 patch DAILY TD Last administered on 08/24/16at 08:26; Admin Dose 1 PATCH; Start 08/24/16 at 09:00 Sodium Biphosphate/ Sodium Phosphate (Fleet Enema) 133 ml DAILY PRN [place] CONSTIPATION; Start 08/23/16 at 16:00 Senna (Senokot) 2 tab QHS PO Last administered on 08/23/16at 22:56; Admin Dose 2 TAB; Start 08/23/16 at 21:00 Multivitamins/ Minerals 1 tab 1 tab QAM PO Last administered on 08/24/16 08: 26; Admin Dose 1 TAB; Start 08/24/16 at 09:00 Sodium Chloride (NS) 1,000 ml @ 75 mls/hr [id number] IV Last administered on at 18:37; Admin Dose 75 MLS/HR; Start 08/23/16 at 16:30 Ondansetron HCl (Zofran Inj) 4 mg Q6H PRN IV NAUSEA AND/OR VOMITING; Start at 16:30 Nitroglycerin (Nitroglycerin (Sl Tab) 0.4 Mg) 1 tab Q5M PRN SL CHEST PAIN; Start 08/23/16 at 16:30 Morphine Sulfate (morphine) 2 mg Q4H PRN IV PAIN LEVEL 7-10; Start 08/23/16 at 16:30 Docusate Sodium (Colace) 100 mg Q12H PRN PO CONSTIPATION; Start 08/23/16 at 16 :30 Magnesium Hydroxide (Milk Of Mag) 30 ml DAILY PRN PO CONSTIPATION; Start 08/23 at 16:30 Bisacodyl (Dulcolax Supp) 10 mg DAILY PRN [place] CONSTIPATION; Start 08/23/16 at 16:30 Enoxaparin Sodium (Lovenox) 40 mg DAILY SC Last administered on 08/24/16at 08: 30; Admin Dose 40 MG; Start 08/24/16 at 09:00 Metoprolol Tartrate (Lopressor) 25 mg BID PO Last administered on 08/24/16at 08 :27; Admin Dose 25 MG; Start 08/23/16 at 21:00 Metoprolol Tartrate 5 mg 5 mg Q4H PRN IV HR>110 Hold SBP<100; Start 08/23/16 at 16:30 Potassium Chloride/Sodium Chloride 1,000 ml @ 60 mls/hr [id number] IV Last administered on 08/23/16at 20:23; Admin Dose 60 MLS/HR; Start 08/23/16 at 17:00 Cefepime HCl (Maxipime 2gm/50 ml (Pmx)) 50 ml @ 100 mls/hr Q24H IVPB Last administered on 08/23/16at 21:15; Admin Dose 100 MLS/HR; Start 08/23/16 at 21: 00 Famotidine (Pepcid) 20 mg DAILY PO Last administered on 08/24/16at 08:26; Admin Dose 20 MG; Start 08/24/16 at 09:00 Calcium/Vitamin D (Oyster Shell/ Vit-D (500/200)) 1 tab BID PO Last administered on 08/24/16at 08:26; Admin Dose 1 TAB; Start 08/23/16 at 21:00 Insulin Detemir (Levemir) 15 unit QHS SC Last administered on 08/23/16at 23:19 ; Admin Dose 15 UNIT; Start 08/23/16 at 21:00 Atorvastatin Calcium 10 mg 10 mg DAILY@21 PO Last administered on 08/23/16at 22 :55; Admin Dose 10 MG; Start 08/23/16 at 21:00 Vancomycin HCl/ Sodium Chloride (Vancocin/NS) 150 ml @ 75 mls/hr Q24H IVPB Last administered on 08/24/16at 12:35; Admin Dose 75 MLS/HR; Start 08/24/16 at 09:00 Influenza Virus Vaccine (Fluzone) 0.5 ml ONCE ONCE IM* ; Start 08/26/16 at 09: 00; Stop 08/26/16 at 09:01 Guaifenesin/ Codeine Phosphate (Robitussin Ac Liquid Cup) 5 ml Q6 PRN PO COUGH ; Start 08/24/16 at 10:30 Miscellaneous Information (* Miscellaneous Pharmacy Order) 1 ea DAILY PRN XX PAIN; Start 08/24/16 at 10:30; Status UNV Miscellaneous Information (* Miscellaneous Pharmacy Order) 5 ea DAILY PO ; Start 08/25/16 at 09:00; Status UNV NEHA WILSON Aug 24, 2016 12:47
[2016-08-24] MEDS: GUAIFENESIN/CODEINE 5ML CUP PO PRN (15:23)
--- NOTE | 2016-08-24 16:11 | CONS ---
Date/Time of Note Date/Time of Note DATE: 08/24/16 TIME: 16:05 Assessment/Plan Assessment/Plan Additional Assessment/Plan Acute coronary syndrome with abnormal electrocardiogram, cardiomegaly, aortic atherosclerosis, hypertension, diabetes, UTI, Pneumonia with altered mental status with positive troponin's Hemodynamically stable Tachycardia resolved Continue Metoprolol Continue Insulin Continue Antibiotics Continue Lipitor and discontinue fenofibrate Continue GI and DVT Prophylaxis CXR AM Consultation Date/Type/Reason Admit Date/Time Aug 23, 2016 at 09:42 Social History Smoking Status: Never smoker Exam/Review of Systems Vital Signs Vitals Vital Signs Date Time Temp Pulse Resp B/P Pulse Ox O2 Delivery O2 Flow Rate FiO2 08/24/16 15:34 97.9 66 20 150/67 100 08/24/16 08:30 Nasal Cannula 08/24/16 08:15 2.0 Intake and Output 08/23/16 08/23/16 08/24/16 15:00 23:00 07:00 Intake Total 200 ml Output Total 400 ml Balance -200 ml Exam Psych: no complaints Head: atraumatic, normocephalic Eyes: EOMI, nl conjunctiva Neck: non-tender, supple Respiratory: diminished breath sounds Cardiovascular: regular rate and rhythm Gastrointestinal: nl liver, spleen, non-tender, soft Extremities: normal pulses Results Result Diagram: 08/24/16 0642 08/24/16 0642 Results 24 hrs Laboratory Tests Test 08/23/16 17:30 08/23/16 21:50 08/23/16 23:04 08/24/16 06:42 Creatine Kinase 99 81 Creatine Kinase Index 9.7 8.9 Creatinine Kinase MB (Mass) 9.57 H 7.21 H Lactic Acid Level 2.2 Troponin I 2.200 *H 2.020 *H Bedside Glucose 187 Alanine Aminotransferase (ALT/SGPT) 31 Albumin 3.1 L Albumin/Globulin Ratio 1.10 Alkaline Phosphatase 29 L Anion Gap 14 Aspartate Amino Transf (AST/SGOT) 30 Basophils # 0.1 Basophils % 0.4 Blood Urea Nitrogen 20 Calcium Level 8.8 Carbon Dioxide Level 27 Chloride Level 108 Cholesterol Level 123 Cholesterol/HDL Ratio 2.0 Creatinine 0.79 Direct Bilirubin 0.00 Eosinophils # 0.1 Eosinophils % 0.7 Globulin 2.80 Glucose Level 73 # HDL Cholesterol 60 Hematocrit 32.1 #L Hemoglobin 10.6 #L Indirect Bilirubin 0.2 LDL Cholesterol, Calculated 47 Lymphocytes # 2.0 Lymphocytes % 16.3 Magnesium Level 1.6 L Mean Corpuscular Hemoglobin 31.2 Mean Corpuscular Hemoglobin Concent 33.2 Mean Corpuscular Volume 94.0 Mean Platelet Volume 8.2 Monocytes # 0.6 Monocytes % 5.3 Neutrophils # 9.4 H Neutrophils % 77.3 H Nucleated Red Blood Cells # 0.0 Nucleated Red Blood Cells % 0.0 Phosphorus Level 2.3 L Platelet Count 243 # Potassium Level 3.8 Red Blood Count 3.41 #L Red Cell Distribution Width 13.9 Sodium Level 145 H Total Bilirubin 0.2 Total Protein 5.9 #L Triglycerides Level 81 White Blood Count 12.2 H Test 08/24/16 07:55 08/24/16 11:21 Bedside Glucose 73 84 Medications Medications Current Medications Acetaminophen (Tylenol Tab) 1,000 mg Q4 PRN PO PAIN AND OR ELEVATED TEMP; Start 08/23/16 at 16:00 Acetaminophen (Tylenol Tab) 650 mg Q4 PRN PO PAIN AND OR ELEVATED TEMP; Start 08/23/16 at 16:00 Aspirin (Aspirin) 81 mg DAILY PO Last administered on 08/24/16at 08:26; Admin Dose 81 MG; Start 08/24/16 at 09:00 Glucose (Glutose) 22.5 gm PRN PO ; Start 08/23/16 at 16:00 Docusate Sodium (Colace) 200 mg QHS PRN PO CONSTIPATION; Start 08/23/16 at 16: 00 Fenofibrate (Tricor) 145 mg QAM PO Last administered on 08/24/16at 08:26; Admin Dose 145 MG; Start 08/24/16 at 09:00 Lidocaine (Lidoderm) 1 patch DAILY TD Last administered on 08/24/16at 08:26; Admin Dose 1 PATCH; Start 08/24/16 at 09:00 Sodium Biphosphate/ Sodium Phosphate (Fleet Enema) 133 ml DAILY PRN [place] CONSTIPATION; Start 08/23/16 at 16:00 Senna (Senokot) 2 tab QHS PO Last administered on 08/23/16at 22:56; Admin Dose 2 TAB; Start 08/23/16 at 21:00 Multivitamins/ Minerals (Theragran-M) 1 tab QAM PO Last administered on at 08:26; Admin Dose 1 TAB; Start 08/24/16 at 09:00 Ondansetron HCl (Zofran Inj) 4 mg Q6H PRN IV NAUSEA AND/OR VOMITING; Start at 16:30 Nitroglycerin (Nitroglycerin (Sl Tab) 0.4 Mg) 1 tab Q5M PRN SL CHEST PAIN; Start 08/23/16 at 16:30 Morphine Sulfate (morphine) 2 mg Q4H PRN IV PAIN LEVEL 7-10 Last administered on 08/24/16at 14:25; Admin Dose 2 MG; Start 08/23/16 at 16:30 Docusate Sodium (Colace) 100 mg Q12H PRN PO CONSTIPATION; Start 08/23/16 at 16 :30 Magnesium Hydroxide (Milk Of Mag) 30 ml DAILY PRN PO CONSTIPATION; Start 08/23 at 16:30 Bisacodyl (Dulcolax Supp) 10 mg DAILY PRN [place] CONSTIPATION; Start 08/23/16 at 16:30 Enoxaparin Sodium (Lovenox) 40 mg DAILY SC Last administered on 08/24/16at 08: 30; Admin Dose 40 MG; Start 08/24/16 at 09:00 Metoprolol Tartrate (Lopressor) 25 mg BID PO Last administered on 08/24/16at 08 :27; Admin Dose 25 MG; Start 08/23/16 at 21:00 Metoprolol Tartrate 5 mg 5 mg Q4H PRN IV HR>110 Hold SBP<100; Start 08/23/16 at 16:30 Potassium Chloride/Sodium Chloride 1,000 ml @ 60 mls/hr [id number] IV Last administered on 08/23/16at 20:23; Admin Dose 60 MLS/HR; Start 08/23/16 at 17:00 Cefepime HCl (Maxipime 2gm/50 ml (Pmx)) 50 ml @ 100 mls/hr Q24H IVPB Last administered on 08/23/16at 21:15; Admin Dose 100 MLS/HR; Start 08/23/16 at 21: 00 Famotidine (Pepcid) 20 mg DAILY PO Last administered on 08/24/16 08:26; Admin Dose 20 MG; Start 08/24/16 at 09:00 Calcium/Vitamin D (Oyster Shell/ Vit-D (500/200)) 1 tab BID PO Last administered on 08/24/16at 08:26; Admin Dose 1 TAB; Start 08/23/16 at 21:00 Insulin Detemir (Levemir) 15 unit QHS SC Last administered on 08/23/16at 23:19 ; Admin Dose 15 UNIT; Start 08/23/16 at 21:00 Atorvastatin Calcium 10 mg 10 mg DAILY@21 PO Last administered on 08/23/16at 22 :55; Admin Dose 10 MG; Start 08/23/16 at 21:00 Vancomycin HCl/ Sodium Chloride (Vancocin/NS) 150 ml @ 75 mls/hr Q24H IVPB Last administered on 08/24/16at 12:35; Admin Dose 75 MLS/HR; Start 08/24/16 at 09:00 Influenza Virus Vaccine (Fluzone) 0.5 ml ONCE ONCE IM* ; Start 08/26/16 at 09: 00; Stop 08/26/16 at 09:01 Guaifenesin/ Codeine Phosphate (Robitussin Ac Liquid Cup) 5 ml Q6 PRN PO COUGH Last administered on 08/24/16at 15:23; Admin Dose 5 ML; Start 08/24/16 at 10:30 Miscellaneous Information (* Miscellaneous Pharmacy Order) 1 ea DAILY PRN XX PAIN; Start 08/24/16 at 10:30; Status UNV Miscellaneous Information (* Miscellaneous Pharmacy Order) 5 ea DAILY PO ; Start 08/25/16 at 09:00; Status UNV VANDANA SPIVEY M.D. Aug 24, 2016 16:11
--- NOTE | 2016-08-24 16:38 | RADRPT ---
Echocardiogram Report Patient Name: GHISLAINE CHRISTIANSEN Gender: Female Date: 1925 Study Date: 24-Aug-2016 Steel Grinder: Pauline Nelson [facility] Location: [id number] Ref. Physician: SMITA MARSH Quality: Good Procedures: Transthoracic echocardiogram with complete 2D, M-Mode, and doppler examination. Indications: Elevated Troponin. 2D/M Mode Doppler Measurement Value Normal Ranges Measurement Value Normal Ranges LVIDd 2D 3.2 3.5 - 5.6 cm AV Peak Kurt 1.0 m/sec LVIDs 2D 1.4 2.1 - 4.1 cm AV Peak PG 4.0 mmHg FS 2D 55.8 % LVOT Peak Kurt 0.5 m/sec LVPWd 2D 0.9 0.6 - 1.1 cm LVOT Peak PG 1.0 mmHg IVSd 2D 1.0 0.6 - 1.1 cm MV E Peak Kurt 0.6 m/sec IVS/LVPW 2D 1.1 MV A Peak Kurt 0.7 m/sec AoR Diam 2D 3.3 2.0 - 3.7 cm MV E/A 0.8 LA/Ao 2D 1 0 - 1 MV Decel Time 218 msec EDV 2D 33.1 cm3 MV E/A 0.8 ESV 2D 2.9 cm3 TR Peak Kurt 2.9 m/sec LA Dimen 2D 3.0 2.3 - 4.0 cm TR Peak PG 34.0 mmHg RVSP 42.0 mmHg Findings Left Ventricle: Normal left ventricular cavity size. Normal left ventricular wall thickness. Ejection fraction is visually estimated at 55 %. Tissue Doppler/Mitral Doppler indices are consistent with impaired relaxation (Stage I diastolic dysfunction). These segments of the LV are hypokinetic apex. Right Ventricle: Normal right ventricular size. Normal right ventricular systolic function. Left Atrium: The left atrium is normal in size. Right Atrium: The right atrium is normal in size. Mitral Valve: Normal appearance of the mitral valve. Mild mitral annular calcification. Trace mitral regurgitation. Aortic Valve: Aortic cusps appear mildly calcified. Mild aortic valve regurgitation. Tricuspid Valve: Normal appearance of the tricuspid valve. Estimated peak PA systolic pressure 42 mmHg. There is mild tricuspid regurgitation. Pulmonic Valve: Normal pulmonic valve appearance. Pericardium: Normal pericardium with no significant pericardial effusion. Aorta: Normal aortic root. IVC: Normal size and no respiratory collapse consistent with elevated right atrial pressure. Pulmonary Artery: Normal pulmonary artery size. Conclusions 1.Normal left ventricular cavity size. Normal left ventricular wall thickness. Ejection fraction is visually estimated at 55 %. Tissue Doppler/Mitral Doppler indices are consistent with impaired relaxation (Stage I diastolic dysfunction). These segments of the LV are hypokinetic apex. 2.Normal right ventricular size. Normal right ventricular systolic function. 3.Normal appearance of the mitral valve. Mild mitral annular calcification. Trace mitral regurgitation. 4.Aortic cusps appear mildly calcified. Mild aortic valve regurgitation. 5.Moderate Pulmonary Hypertension. Estimated peak PA systolic pressure 42 mmHg. There is mild tricuspid regurgitation. 6.Normal pericardium with no significant pericardial effusion. 7.Normal aortic root. Electronically Signed By: Nick Good 24-Aug-2016 16:38:04 -0800 Patient Name: GHISLAINE CHRISTIANSEN Study Date: 24-Aug-2016 [id number]
--- NOTE | 2016-08-24 16:58 | RADRPT ---
PROCEDURE: XR Chest. CLINICAL INDICATION: Dyspnea. Congestive heart failure. TECHNIQUE: Single frontal chest x-ray. COMPARISON: Exam dated 08/23/2016. FINDINGS: There are atherosclerotic changes of the aorta. The cardiomediastinal silhouette is within normal l imits. There is increase patchy parenchymal opacity at the right lung base. The left lung remains clear. There is no pneumothorax. There are no acute osseous abnormalities. IMPRESSION: 1. Increasing parenchymal opacity at the right lung base, suggestive of worsening pneumonia. 2. Vascular calcifications consistent with atherosclerosis. 3. No radiographic evidence of CHF, as questioned. RPTAT: GG .Jose M Foreman MD, MD Date Time Electronically viewed and signed by .Jose M Foreman MD, on 08/24/2016 16:57 .P/
[2016-08-24] MEDS ORDERED: morphine 10 MG INJ IV PRN (17:00)
[2016-08-24] MEDS ORDERED: morphine 4 MG/ML VIAL IV PRN (17:00)
[2016-08-24] MEDS: INSULIN DETEMIR [LEVEMIR] 3ML CART SC SCH (21:00)
[2016-08-24] MEDS: CEFEPIME 2GM/50 ML (PMX) 50 ML IVPB SCH (21:40)
[2016-08-24] MEDS: SENNA TAB PO SCH (21:40)
[2016-08-24] MEDS: ATORVASTATIN 10 MG TAB PO SCH (21:40)
[2016-08-24] MEDS ORDERED: INSULIN DETEMIR [LEVEMIR] 3ML CART SC ONE (22:30)
[2016-08-25] VITALS (10 sets, daily range): BP systolic 140–150; BP diastolic 65–67; PULSE 62–71; RESP 16–20
[2016-08-25] MEDS: 1/2 NS + KCL 20 MEQ 1,000 ML IV SCH ×3 (03:28→22:38)
[2016-08-25] MEDS: GUAIFENESIN/CODEINE 5ML CUP PO PRN (06:18)
[2016-08-25 07:45] LABS: POTASSIUM 4.6 mmol/L (3.5-5.1)
[2016-08-25 07:47] LABS: CREATININE 0.73 mg/dl (0.44-1.00)
[2016-08-25 07:48] LABS: CALCIUM 8.9 mg/dl (8.4-10.2)
[2016-08-25 07:57] LABS: BASOPHILS % 0.1 % (0.0-2.0); EOSINOPHILS # 0.2 10^3/ul (0.0-0.5); EOSINOPHILS % 1.8 % (0.0-7.0); HEMATOCRIT 31.5 % (37.0-47.0); HEMOGLOBIN 10.5 g/dl (12.0-16.0); LYMPHOCYTES % 17.5 % (15.0-51.0); MEAN CORPUSCULAR HEMOGLOBIN 31.6 pg (29.0-33.0); MEAN CORPUSCULAR HGB CONC 33.3 g/dl (32.0-37.0); MEAN CORPUSCULAR VOLUME 94.8 fl (82.0-101.0); MEAN PLATELET VOLUME 8.6 fl (7.4-10.4); MONOCYTE # 0.8 10^3/ul (0.3-0.9); MONOCYTES % 7.1 % (0.0-11.0); NEUTROPHIL # 8.4 10^3/ul (1.6-7.5); NEUTROPHILS % 73.5 % (39.0-77.0); PLATELET COUNT 197 10^3/UL (140-440); RED BLOOD COUNT 3.32 10^6/ul (4.20-5.40); RED CELL DISTRIBUTION WIDTH 13.9 % (11.5-14.5); UNCORRECTED WBC 11.5 10^3/ul (4.8-10.8); WHITE BLOOD COUNT 11.5 10^3/ul (4.8-10.8)
[2016-08-25 08:03] LABS: CONDITION 1; NUCLEATED RED BLOOD CELLS # 0.2 10^3/ul (0.0-0.0)
[2016-08-25] MEDS: VANCOMYCIN 750 MG in SOD CHLORIDE 0.9% 150 ML IVPB SCH (09:09)
[2016-08-25] MEDS: ASPIRIN 81 MG TAB PO SCH (09:10)
[2016-08-25] MEDS: CALCIUM/VITAMIN D (500/200) TAB PO SCH ×2 (09:10→21:14)
[2016-08-25] MEDS: MULTIVITAMINS/MINERALS TAB PO SCH (09:10)
[2016-08-25] MEDS: FAMOTIDINE 20 MG TAB PO SCH (09:10)
[2016-08-25] MEDS: METOPROLOL 25 MG TAB PO SCH ×2 (09:10→21:15)
[2016-08-25] MEDS: LIDOCAINE 5% PATCH TD SCH (09:12)
[2016-08-25] MEDS: ENOXAPARIN 40 MG/0.4 ML SYG SC SCH (09:12)
[2016-08-25] MEDS: FENOFIBRATE 145 MG TAB PO SCH (09:17)
[2016-08-25] MEDS: LEVALBUTEROL (NEB) 0.63 MG/3 ML AMP HHN SCH ×2 (09:43→19:46)
--- NOTE | 2016-08-25 12:04 | RADRPT ---
Vent Rate: 77 bpm RR Interval: 0 msec GA Interval: 156 msec QRS Duration: 86 msec QT Interval: 358 msec QTC Interval: 405 msec P-R-T [place]: 53 - -19 - 52 degrees Normal sinus rhythm Low voltage QRS Borderline ECG Electronically Signed By: Devaughn Nobles [id number]
--- NOTE | 2016-08-25 12:29 | PN ---
Date/Time of Note Date/Time of Note DATE: 08/25/16 TIME: 12:28 Assessment/Plan VTE Prophylaxis VTE Prophylaxis Intervention: LMWH Lines/Catheters IV Catheter Type (from Nrs): Peripheral IV Urinary Cath still in place: Yes Reason Cath still needed: skin wounds contaminated by urine Assessment/Plan Chief Complaint/Hosp Course 1. Healthcare facility acquired pneumonia - IV antibiotics 2. Non-ST elevation myocardial infarction - cardiology to evaluate 3. Hypertension - continue meds 4. Diabetes mellitus - monitor blood sugar Problems: Subjective 24 Hr Interval Summary Free Text/Dictation Patient is doing better today, no longer having back pain Exam/Review of Systems Vital Signs Vitals Vital Signs Date Time Temp Pulse Resp B/P Pulse Ox O2 Delivery O2 Flow Rate FiO2 08/25/16 12:11 98.0 65 20 146/65 99 08/25/16 09:45 Nasal Cannula 2.0 Intake and Output 08/24/16 08/24/16 08/25/16 15:00 23:00 07:00 Intake Total 450 ml 1300 ml Output Total 400 ml 500 ml Balance 50 ml 800 ml Exam Constitutional: alert, well developed Respiratory: clear to auscultation Cardiovascular: regular rate and rhythm Gastrointestinal: non-tender, soft Extremities: normal pulses Results Result Diagram: 08/25/16 0715 08/25/16 0715 Results 24 hrs Laboratory Tests Test 08/24/16 17:04 08/24/16 21:53 08/25/16 06:45 08/25/16 07:15 Bedside Glucose 106 68 L 84 Anion Gap 13 Basophils # 0.0 Basophils % 0.1 Blood Urea Nitrogen 16 Calcium Level 8.9 Carbon Dioxide Level 25 Chloride Level 106 Creatinine 0.73 Eosinophils # 0.2 Eosinophils % 1.8 Glucose Level 86 Hematocrit 31.5 L Hemoglobin 10.5 L Lymphocytes # 2.0 Lymphocytes % 17.5 Mean Corpuscular Hemoglobin 31.6 Mean Corpuscular Hemoglobin Concent 33.3 Mean Corpuscular Volume 94.8 Mean Platelet Volume 8.6 Monocytes # 0.8 Monocytes % 7.1 Neutrophils # 8.4 H Neutrophils % 73.5 Nucleated Red Blood Cells # 0.2 H Nucleated Red Blood Cells % 2.0 H Platelet Count 197 Potassium Level 4.6 Red Blood Count 3.32 L Red Cell Distribution Width 13.9 Sodium Level 139 White Blood Count 11.5 H Test 08/25/16 08:55 Bedside Glucose 160 Medications Medications Current Medications Acetaminophen (Tylenol Tab) 1,000 mg Q4 PRN PO PAIN AND OR ELEVATED TEMP; Start 08/23/16 at 16:00 Acetaminophen (Tylenol Tab) 650 mg Q4 PRN PO PAIN AND OR ELEVATED TEMP; Start 08/23/16 at 16:00 Aspirin (Aspirin) 81 mg DAILY PO Last administered on 08/25/16at 09:10; Admin Dose 81 MG; Start 08/24/16 at 09:00 Glucose (Glutose) 22.5 gm PRN PO ; Start 08/23/16 at 16:00 Fenofibrate (Tricor) 145 mg QAM PO Last administered on 08/25/16at 09:17; Admin Dose 145 MG; Start 08/24/16 at 09:00 Lidocaine (Lidoderm) 1 patch DAILY TD Last administered on 08/25/16at 09:12; Admin Dose 1 PATCH; Start 08/24/16 at 09:00 Sodium Biphosphate/ Sodium Phosphate (Fleet Enema) 133 ml DAILY PRN [place] CONSTIPATION; Start 08/23/16 at 16:00 Senna (Senokot) 2 tab QHS PO Last administered on 08/24/16at 21:40; Admin Dose 2 TAB; Start 08/23/16 at 21:00 Multivitamins/ Minerals (Theragran-M) 1 tab QAM PO Last administered on at 09:10; Admin Dose 1 TAB; Start 08/24/16 at 09:00 Ondansetron HCl (Zofran Inj) 4 mg Q6H PRN IV NAUSEA AND/OR VOMITING; Start at 16:30 Nitroglycerin (Nitroglycerin (Sl Tab) 0.4 Mg) 1 tab Q5M PRN SL CHEST PAIN; Start 08/23/16 at 16:30 Docusate Sodium (Colace) 100 mg Q12H PRN PO CONSTIPATION; Start 08/23/16 at 16 :30 Magnesium Hydroxide (Milk Of Mag) 30 ml DAILY PRN PO CONSTIPATION; Start 08/23 at 16:30 Bisacodyl (Dulcolax Supp) 10 mg DAILY PRN [place] CONSTIPATION; Start 08/23/16 at 16:30 Enoxaparin Sodium (Lovenox) 40 mg DAILY SC Last administered on 08/25/16 09: 12; Admin Dose 40 MG; Start 08/24/16 at 09:00 Metoprolol Tartrate (Lopressor) 25 mg BID PO Last administered on 08/25/16 09 :10; Admin Dose 25 MG; Start 08/23/16 at 21:00 Metoprolol Tartrate 5 mg 5 mg Q4H PRN IV HR>110 Hold SBP<100; Start 08/23/16 at 16:30 Potassium Chloride/Sodium Chloride 1,000 ml @ 60 mls/hr [id number] IV Last administered on 08/25/16 03:28; Admin Dose 60 MLS/HR; Start 08/23/16 at 17:00 Cefepime HCl (Maxipime 2gm/50 ml (Pmx)) 50 ml @ 100 mls/hr Q24H IVPB Last administered on 08/24/16 21:40; Admin Dose 100 MLS/HR; Start 08/23/16 at 21: 00 Famotidine (Pepcid) 20 mg DAILY PO Last administered on 08/25/16 09:10; Admin Dose 20 MG; Start 08/24/16 at 09:00 Calcium/Vitamin D (Oyster Shell/ Vit-D (500/200)) 1 tab BID PO Last administered on 08/25/16 09:10; Admin Dose 1 TAB; Start 08/23/16 at 21:00 Insulin Detemir (Levemir) 15 unit QHS SC Last administered on 08/23/16 23:19 ; Admin Dose 15 UNIT; Start 08/23/16 at 21:00 Atorvastatin Calcium 10 mg 10 mg DAILY@21 PO Last administered on 08/24/16 21 :40; Admin Dose 10 MG; Start 08/23/16 at 21:00 Vancomycin HCl/ Sodium Chloride (Vancocin/NS) 150 ml @ 75 mls/hr Q24H IVPB Last administered on 08/25/16 09:09; Admin Dose 75 MLS/HR; Start 08/24/16 at 09:00 Influenza Virus Vaccine (Fluzone) 0.5 ml ONCE ONCE IM* ; Start 08/26/16 at 09: 00; Stop 08/26/16 at 09:01 Guaifenesin/ Codeine Phosphate (Robitussin Ac Liquid Cup) 5 ml Q6 PRN PO COUGH Last administered on 12/25/16at 06:18; Admin Dose 5 ML; Start 08/24/16 at 10:30 Miscellaneous Information (* Miscellaneous Pharmacy Order) 1 ea DAILY PRN XX PAIN; Start 08/24/16 at 10:30; Status UNV Miscellaneous Information (* Miscellaneous Pharmacy Order) 5 ea DAILY PO ; Start 08/25/16 at 09:00; Status UNV Morphine Sulfate (morphine) 4 mg Q4H PRN IV PAIN LEVEL 4-7; Start 08/24/16 at 17:00 NEHA WILSON Aug 25, 2016 12:29
[2016-08-25] MEDS ORDERED: DEXTROSE 50% 50 ML SYRINGE IV PRN ×2 (13:00)
[2016-08-25] MEDS ORDERED: GLUCOSE GEL 15 GRAM TUBE PO PRN ×2 (13:00)
[2016-08-25] MEDS ORDERED: GLUCAGON 1 MG INJ IM PRN (13:00)
[2016-08-25] MEDS: INSULIN ASPART [NOVOLOG] 3 ML PEN SC SCH ×2 (17:22→21:00)
--- NOTE | 2016-08-25 17:59 | CONS ---
Date/Time of Note Date/Time of Note DATE: 08/25/16 TIME: 17:56 Assessment/Plan Assessment/Plan Additional Assessment/Plan Acute coronary syndrome with abnormal electrocardiogram, cardiomegaly, aortic atherosclerosis, hypertension, diabetes, UTI, Pneumonia with altered mental status with positive troponin's and moderate pulmonary hypertension Hemodynamically stable Tachycardia resolved CXR worsening infiltrates Continue Metoprolol Continue Insulin Continue Antibiotics Continue Lipitor and discontinue fenofibrate Continue GI and DVT Prophylaxis Consultation Date/Type/Reason Admit Date/Time Aug 23, 2016 at 09:42 Initial Consult Date Exam/Review of Systems Vital Signs Vitals Vital Signs Date Time Temp Pulse Resp B/P Pulse Ox O2 Delivery O2 Flow Rate FiO2 08/25/16 16:01 69 08/25/16 15:35 2.0 08/25/16 15:33 98.0 20 150/67 99 08/25/16 09:45 Nasal Cannula Intake and Output 08/24/16 08/24/16 08/25/16 15:00 23:00 07:00 Intake Total 450 ml 1300 ml Output Total 400 ml 500 ml Balance 50 ml 800 ml Exam Head: atraumatic, normocephalic Eyes: EOMI, nl conjunctiva Neck: non-tender, supple Respiratory: diminished breath sounds Cardiovascular: regular rate and rhythm Gastrointestinal: nl liver, spleen, non-tender, soft Extremities: normal pulses Results Result Diagram: 08/25/16 0715 08/25/16 0715 Results 24 hrs Laboratory Tests Test 08/24/16 21:53 08/25/16 06:45 08/25/16 07:15 08/25/16 08:55 Bedside Glucose 68 L 84 160 Anion Gap 13 Basophils # 0.0 Basophils % 0.1 Blood Urea Nitrogen 16 Calcium Level 8.9 Carbon Dioxide Level 25 Chloride Level 106 Creatinine 0.73 Eosinophils # 0.2 Eosinophils % 1.8 Glucose Level 86 Hematocrit 31.5 L Hemoglobin 10.5 L Lymphocytes # 2.0 Lymphocytes % 17.5 Mean Corpuscular Hemoglobin 31.6 Mean Corpuscular Hemoglobin Concent 33.3 Mean Corpuscular Volume 94.8 Mean Platelet Volume 8.6 Monocytes # 0.8 Monocytes % 7.1 Neutrophils # 8.4 H Neutrophils % 73.5 Nucleated Red Blood Cells # 0.2 H Nucleated Red Blood Cells % 2.0 H Platelet Count 197 Potassium Level 4.6 Red Blood Count 3.32 L Red Cell Distribution Width 13.9 Sodium Level 139 White Blood Count 11.5 H Test 08/25/16 17:12 Bedside Glucose 166 Medications Medications Current Medications Acetaminophen (Tylenol Tab) 1,000 mg Q4 PRN PO PAIN AND OR ELEVATED TEMP; Start 08/23/16 at 16:00 Acetaminophen (Tylenol Tab) 650 mg Q4 PRN PO PAIN AND OR ELEVATED TEMP; Start 08/23/16 at 16:00 Aspirin (Aspirin) 81 mg DAILY PO Last administered on 08/25/16at 09:10; Admin Dose 81 MG; Start 08/24/16 at 09:00 Glucose (Glutose) 22.5 gm PRN PO ; Start 08/23/16 at 16:00 Fenofibrate (Tricor) 145 mg QAM PO Last administered on 08/25/16at 09:17; Admin Dose 145 MG; Start 08/24/16 at 09:00 Lidocaine (Lidoderm) 1 patch DAILY TD Last administered on 08/25/16at 09:12; Admin Dose 1 PATCH; Start 08/24/16 at 09:00 Sodium Biphosphate/ Sodium Phosphate (Fleet Enema) 133 ml DAILY PRN [place] CONSTIPATION; Start 08/23/16 at 16:00 Senna (Senokot) 2 tab QHS PO Last administered on 08/24/16at 21:40; Admin Dose 2 TAB; Start 08/23/16 at 21:00 Multivitamins/ Minerals (Theragran-M) 1 tab QAM PO Last administered on at 09:10; Admin Dose 1 TAB; Start 08/24/16 at 09:00 Ondansetron HCl (Zofran Inj) 4 mg Q6H PRN IV NAUSEA AND/OR VOMITING; Start at 16:30 Nitroglycerin (Nitroglycerin (Sl Tab) 0.4 Mg) 1 tab Q5M PRN SL CHEST PAIN; Start 08/23/16 at 16:30 Docusate Sodium (Colace) 100 mg Q12H PRN PO CONSTIPATION; Start 08/23/16 at 16 :30 Magnesium Hydroxide (Milk Of Mag) 30 ml DAILY PRN PO CONSTIPATION; Start 08/23 at 16:30 Bisacodyl (Dulcolax Supp) 10 mg DAILY PRN [place] CONSTIPATION; Start 08/23/16 at 16:30 Enoxaparin Sodium (Lovenox) 40 mg DAILY SC Last administered on 08/25/16 09: 12; Admin Dose 40 MG; Start 08/24/16 at 09:00 Metoprolol Tartrate (Lopressor) 25 mg BID PO Last administered on 08/25/16 09 :10; Admin Dose 25 MG; Start 08/23/16 at 21:00 Metoprolol Tartrate 5 mg 5 mg Q4H PRN IV HR>110 Hold SBP<100; Start 08/23/16 at 16:30 Potassium Chloride/Sodium Chloride 1,000 ml @ 60 mls/hr [id number] IV Last administered on 08/25/16 03:28; Admin Dose 60 MLS/HR; Start 08/23/16 at 17:00 Cefepime HCl (Maxipime 2gm/50 ml (Pmx)) 50 ml @ 100 mls/hr Q24H IVPB Last administered on 08/24/16 21:40; Admin Dose 100 MLS/HR; Start 08/23/16 at 21: 00 Famotidine (Pepcid) 20 mg DAILY PO Last administered on 08/25/16 09:10; Admin Dose 20 MG; Start 08/24/16 at 09:00 Calcium/Vitamin D (Oyster Shell/ Vit-D (500/200)) 1 tab BID PO Last administered on 08/25/16 09:10; Admin Dose 1 TAB; Start 08/23/16 at 21:00 Insulin Detemir (Levemir) 15 unit QHS SC Last administered on 08/23/16at 23:19 ; Admin Dose 15 UNIT; Start 08/23/16 at 21:00 Atorvastatin Calcium 10 mg 10 mg DAILY@21 PO Last administered on 08/24/16 21 :40; Admin Dose 10 MG; Start 08/23/16 at 21:00 Vancomycin HCl/ Sodium Chloride (Vancocin/NS) 150 ml @ 75 mls/hr Q24H IVPB Last administered on 08/25/16 09:09; Admin Dose 75 MLS/HR; Start 08/24/16 at 09:00 Influenza Virus Vaccine (Fluzone) 0.5 ml ONCE ONCE IM* ; Start 08/26/16 at 09: 00; Stop 08/26/16 at 09:01 Guaifenesin/ Codeine Phosphate (Robitussin Ac Liquid Cup) 5 ml Q6 PRN PO COUGH Last administered on 08/25/16at 06:18; Admin Dose 5 ML; Start 08/24/16 at 10:30 Miscellaneous Information (* Miscellaneous Pharmacy Order) 1 ea DAILY PRN XX PAIN; Start 08/24/16 at 10:30; Status UNV Miscellaneous Information (* Miscellaneous Pharmacy Order) 5 ea DAILY PO ; Start 08/25/16 at 09:00; Status UNV Morphine Sulfate (morphine) 4 mg Q4H PRN IV PAIN LEVEL 4-7; Start 08/24/16 at 17:00 Diagnostic Test (Pha) (Accucheck) 1 ea 02 XX ; Start 08/26/16 at 02:00 Miscellaneous Information 1 ea NOTE XX ; Start 08/25/16 at 13:00 Glucose (Glutose) 15 gm Q15M PRN PO DECREASED GLUCOSE; Start 08/25/16 at 13:00 Glucose (Glutose) 22.5 gm Q15M PRN PO DECREASED GLUCOSE; Start 08/25/16 at 13: 00 Dextrose (D50w Syringe) 25 ml Q15M PRN IV DECREASED GLUCOSE; Start 08/25/16 at 13:00 Dextrose (D50w Syringe) 50 ml Q15M PRN IV DECREASED GLUCOSE; Start 08/25/16 at 13:00 Glucagon (Glucagen) 1 mg Q15M PRN IM DECREASED GLUCOSE; Start 08/25/16 at 13: 00 Glucose (Glutose) 15 gm Q15M PRN BUCCAL DECREASED GLUCOSE; Start 08/25/16 at 13:00 Miscellaneous Information (*Rx Drug Level Order Reminder*) VANCOMYCIN TROUGH LEVEL... ONCE ONCE XX ; Start 08/26/16 at 08:00; Stop 08/26/16 at 08:01 VANDANA SPIVEY M.D. Aug 25, 2016 17:59
[2016-08-25] MEDS: SENNA TAB PO SCH (21:00)
[2016-08-25] MEDS: ATORVASTATIN 10 MG TAB PO SCH (21:15)
[2016-08-25] MEDS: CEFEPIME 2GM/50 ML (PMX) 50 ML IVPB SCH (21:15)
[2016-08-25] MEDS: INSULIN DETEMIR [LEVEMIR] 3ML CART SC SCH (21:35)
[2016-08-26] VITALS (11 sets, daily range): BP systolic 135–189; BP diastolic 56–80; PULSE 67–75; RESP 18–20
[2016-08-26] MEDS: ACCUCHECK XX SCH (02:56)
[2016-08-26] MEDS: INSULIN ASPART [NOVOLOG] 3 ML PEN SC SCH ×4 (08:00→21:00)
[2016-08-26 08:18] LABS: BASOPHILS % 0.4 % (0.0-2.0); EOSINOPHILS # 0.2 10^3/ul (0.0-0.5); EOSINOPHILS % 2.4 % (0.0-7.0); HEMATOCRIT 31.2 % (37.0-47.0); HEMOGLOBIN 10.4 g/dl (12.0-16.0); LYMPHOCYTES # 1.8 10^3/ul (0.8-2.9); LYMPHOCYTES % 17.9 % (15.0-51.0); MEAN CORPUSCULAR HEMOGLOBIN 30.9 pg (29.0-33.0); MEAN CORPUSCULAR HGB CONC 33.4 g/dl (32.0-37.0); MEAN CORPUSCULAR VOLUME 92.5 fl (82.0-101.0); MEAN PLATELET VOLUME 8.2 fl (7.4-10.4); MONOCYTE # 0.7 10^3/ul (0.3-0.9); MONOCYTES % 7.2 % (0.0-11.0); NEUTROPHIL # 7.2 10^3/ul (1.6-7.5); NEUTROPHILS % 72.1 % (39.0-77.0); PLATELET COUNT 264 10^3/UL (140-440); RED BLOOD COUNT 3.37 10^6/ul (4.20-5.40); RED CELL DISTRIBUTION WIDTH 13.8 % (11.5-14.5)
[2016-08-26 08:21] LABS: CONDITION 1
[2016-08-26 08:31] LABS: POTASSIUM 4.1 mmol/L (3.5-5.1)
[2016-08-26 08:34] LABS: CREATININE 0.76 mg/dl (0.44-1.00)
[2016-08-26] MEDS ORDERED: INFLUENZA VIRUS VACCINE 0.5 ML SYG IM* ONE (09:00)
[2016-08-26] MEDS: LEVALBUTEROL (NEB) 0.63 MG/3 ML AMP HHN SCH ×2 (09:17→19:34)
[2016-08-26] MEDS: FENOFIBRATE 145 MG TAB PO SCH (09:50)
[2016-08-26] MEDS: VANCOMYCIN 750 MG in SOD CHLORIDE 0.9% 150 ML IVPB SCH ×2 (09:50→10:07)
[2016-08-26] MEDS: ENOXAPARIN 40 MG/0.4 ML SYG SC SCH (09:52)
[2016-08-26] MEDS: LIDOCAINE 5% PATCH TD SCH (09:52)
[2016-08-26] MEDS: ASPIRIN 81 MG TAB PO SCH (09:53)
[2016-08-26] MEDS: MULTIVITAMINS/MINERALS TAB PO SCH (09:53)
[2016-08-26] MEDS: METOPROLOL 25 MG TAB PO SCH ×2 (10:01→21:29)
[2016-08-26] MEDS: FAMOTIDINE 20 MG TAB PO SCH (10:15)
[2016-08-26] MEDS: CALCIUM/VITAMIN D (500/200) TAB PO SCH ×2 (10:28→21:29)
[2016-08-26] MEDS: 1/2 NS + KCL 20 MEQ 1,000 ML IV SCH ×2 (11:40→18:25)
--- NOTE | 2016-08-26 16:12 | CONS ---
Date/Time of Note Date/Time of Note DATE: 08/26/16 TIME: 16:11 Assessment/Plan Assessment/Plan Additional Assessment/Plan Acute coronary syndrome with abnormal electrocardiogram, cardiomegaly, aortic atherosclerosis, hypertension, diabetes, UTI, Pneumonia with altered mental status with positive troponin's and moderate pulmonary hypertension Hemodynamically stable Tachycardia resolved CXR worsening infiltrates Continue Metoprolol Continue Insulin Continue Antibiotics Continue Lipitor and discontinued fenofibrate Continue GI and DVT Prophylaxis Consultation Date/Type/Reason Admit Date/Time Aug 23, 2016 at 09:42 Exam/Review of Systems Vital Signs Vitals Vital Signs Date Time Temp Pulse Resp B/P Pulse Ox O2 Delivery O2 Flow Rate FiO2 08/26/16 16:06 73 08/26/16 15:38 98.1 18 136/80 96 08/26/16 09:19 Nasal Cannula 2.0 Intake and Output 08/25/16 08/25/16 08/26/16 15:00 23:00 07:00 Intake Total 700 ml 250 ml Output Total 1000 ml 800 ml Balance -300 ml -550 ml Exam Head: atraumatic, normocephalic Eyes: EOMI, nl conjunctiva Neck: non-tender, supple Respiratory: diminished breath sounds Cardiovascular: regular rate and rhythm Gastrointestinal: nl liver, spleen, non-tender, soft Extremities: normal pulses Results Result Diagram: 08/26/16 0800 08/26/16 0800 Results 24 hrs Laboratory Tests Test 08/25/16 17:12 08/25/16 21:18 08/26/16 02:54 08/26/16 08:00 Bedside Glucose 166 173 115 Anion Gap 10 Basophils # 0.0 Basophils % 0.4 Blood Urea Nitrogen 13 Calcium Level 9.0 Carbon Dioxide Level 27 Chloride Level 108 Creatinine 0.76 Eosinophils # 0.2 Eosinophils % 2.4 Glucose Level 80 Hematocrit 31.2 L Hemoglobin 10.4 L Lymphocytes # 1.8 Lymphocytes % 17.9 Mean Corpuscular Hemoglobin 30.9 Mean Corpuscular Hemoglobin Concent 33.4 Mean Corpuscular Volume 92.5 Mean Platelet Volume 8.2 Monocytes # 0.7 Monocytes % 7.2 Neutrophils # 7.2 Neutrophils % 72.1 Nucleated Red Blood Cells # 0.0 Nucleated Red Blood Cells % 0.0 Platelet Count 264 # Potassium Level 4.1 Red Blood Count 3.37 L Red Cell Distribution Width 13.8 Sodium Level 141 Vancomycin Level Trough 11.3 White Blood Count 10.0 Test 08/26/16 08:10 08/26/16 12:26 Bedside Glucose 79 146 Medications Medications Current Medications Acetaminophen (Tylenol Tab) 1,000 mg Q4 PRN PO PAIN AND OR ELEVATED TEMP; Start 08/23/16 at 16:00 Acetaminophen (Tylenol Tab) 650 mg Q4 PRN PO PAIN AND OR ELEVATED TEMP; Start 08/23/16 at 16:00 Aspirin (Aspirin) 81 mg DAILY PO Last administered on 08/26/16at 09:53; Admin Dose 81 MG; Start 08/24/16 at 09:00 Glucose (Glutose) 22.5 gm PRN PO ; Start 08/23/16 at 16:00 Fenofibrate (Tricor) 145 mg QAM PO Last administered on 08/26/16at 09:50; Admin Dose 145 MG; Start 08/24/16 at 09:00 Lidocaine (Lidoderm) 1 patch DAILY TD Last administered on 08/26/16at 09:52; Admin Dose 1 PATCH; Start 08/24/16 at 09:00 Sodium Biphosphate/ Sodium Phosphate (Fleet Enema) 133 ml DAILY PRN [place] CONSTIPATION; Start 08/23/16 at 16:00 Senna (Senokot) 2 tab QHS PO Last administered on 08/24/16at 21:40; Admin Dose 2 TAB; Start 08/23/16 at 21:00 Multivitamins/ Minerals (Theragran-M) 1 tab QAM PO Last administered on at 09:53; Admin Dose 1 TAB; Start 08/24/16 at 09:00 Ondansetron HCl (Zofran Inj) 4 mg Q6H PRN IV NAUSEA AND/OR VOMITING; Start at 16:30 Nitroglycerin (Nitroglycerin (Sl Tab) 0.4 Mg) 1 tab Q5M PRN SL CHEST PAIN; Start 08/23/16 at 16:30 Docusate Sodium (Colace) 100 mg Q12H PRN PO CONSTIPATION; Start 08/23/16 at 16 :30 Magnesium Hydroxide (Milk Of Mag) 30 ml DAILY PRN PO CONSTIPATION; Start 08/23 at 16:30 Bisacodyl (Dulcolax Supp) 10 mg DAILY PRN [place] CONSTIPATION; Start 08/23/16 at 16:30 Enoxaparin Sodium (Lovenox) 40 mg DAILY SC Last administered on 08/26/16 09: 52; Admin Dose 40 MG; Start 08/24/16 at 09:00 Metoprolol Tartrate (Lopressor) 25 mg BID PO Last administered on 08/26/16 10 :01; Admin Dose 25 MG; Start 08/23/16 at 21:00 Metoprolol Tartrate 5 mg 5 mg Q4H PRN IV HR>110 Hold SBP<100; Start 08/23/16 at 16:30 Potassium Chloride/Sodium Chloride 1,000 ml @ 60 mls/hr [id number] IV Last administered on 08/25/16 22:38; Admin Dose 60 MLS/HR; Start 08/23/16 at 17:00 Cefepime HCl (Maxipime 2gm/50 ml (Pmx)) 50 ml @ 100 mls/hr Q24H IVPB Last administered on 08/25/16 21:15; Admin Dose 100 MLS/HR; Start 08/23/16 at 21: 00 Famotidine (Pepcid) 20 mg DAILY PO Last administered on 08/26/16 10:15; Admin Dose 20 MG; Start 08/24/16 at 09:00 Calcium/Vitamin D (Oyster Shell/ Vit-D (500/200)) 1 tab BID PO Last administered on 08/26/16 10:28; Admin Dose 1 TAB; Start 08/23/16 at 21:00 Insulin Detemir (Levemir) 15 unit QHS SC Last administered on 08/25/16 21:35 ; Admin Dose 15 UNIT; Start 08/23/16 at 21:00 Atorvastatin Calcium 10 mg 10 mg DAILY@21 PO Last administered on 08/25/16 21 :15; Admin Dose 10 MG; Start 08/23/16 at 21:00 Vancomycin HCl/ Sodium Chloride (Vancocin/NS) 150 ml @ 75 mls/hr Q24H IVPB Last administered on 08/26/16 10:07; Admin Dose 75 MLS/HR; Start 08/24/16 at 09:00 Guaifenesin/ Codeine Phosphate (Robitussin Ac Liquid Cup) 5 ml Q6 PRN PO COUGH Last administered on 08/25/16 06:18; Admin Dose 5 ML; Start 08/24/16 at 10:30 Miscellaneous Information (* Miscellaneous Pharmacy Order) 1 ea DAILY PRN XX PAIN; Start 08/24/16 at 10:30; Status UNV Miscellaneous Information (* Miscellaneous Pharmacy Order) 5 ea DAILY PO ; Start 08/25/16 at 09:00; Status UNV Morphine Sulfate (morphine) 4 mg Q4H PRN IV PAIN LEVEL 4-7; Start 08/24/16 at 17:00 Diagnostic Test (Pha) (Accucheck) 1 ea 02 XX Last administered on 08/26/16at 02 :56; Admin Dose 1 EA; Start 08/26/16 at 02:00 Miscellaneous Information 1 ea NOTE XX ; Start 08/25/16 at 13:00 Glucose (Glutose) 15 gm Q15M PRN PO DECREASED GLUCOSE; Start 08/25/16 at 13:00 Glucose (Glutose) 22.5 gm Q15M PRN PO DECREASED GLUCOSE; Start 08/25/16 at 13: 00 Dextrose (D50w Syringe) 25 ml Q15M PRN IV DECREASED GLUCOSE; Start 08/25/16 at 13:00 Dextrose (D50w Syringe) 50 ml Q15M PRN IV DECREASED GLUCOSE; Start 08/25/16 at 13:00 Glucagon (Glucagen) 1 mg Q15M PRN IM DECREASED GLUCOSE; Start 08/25/16 at 13: 00 Glucose (Glutose) 15 gm Q15M PRN BUCCAL DECREASED GLUCOSE; Start 08/25/16 at 13:00 VANDANA SPIVEY M.D. Aug 26, 2016 16:12
--- NOTE | 2016-08-26 17:00 | PN ---
Date/Time of Note Date/Time of Note DATE: 08/26/16 TIME: 17:00 Assessment/Plan Lines/Catheters IV Catheter Type (from Nrsg): Peripheral IV Urinary Cath still in place: Yes Exam/Review of Systems Vital Signs Vitals Vital Signs Date Time Temp Pulse Resp B/P Pulse Ox O2 Delivery O2 Flow Rate FiO2 08/26/16 16:06 73 08/26/16 15:38 98.1 18 136/80 96 08/26/16 09:19 Nasal Cannula 2.0 Intake and Output 08/25/16 08/25/16 08/26/16 15:00 23:00 07:00 Intake Total 700 ml 250 ml Output Total 1000 ml 800 ml Balance -300 ml -550 ml Results Result Diagram: 08/26/16 0800 08/26/16 0800 Results 24 hrs Laboratory Tests Test 08/25/16 17:12 08/25/16 21:18 08/26/16 02:54 08/26/16 08:00 Bedside Glucose 166 173 115 Anion Gap 10 Basophils # 0.0 Basophils % 0.4 Blood Urea Nitrogen 13 Calcium Level 9.0 Carbon Dioxide Level 27 Chloride Level 108 Creatinine 0.76 Eosinophils # 0.2 Eosinophils % 2.4 Glucose Level 80 Hematocrit 31.2 L Hemoglobin 10.4 L Lymphocytes # 1.8 Lymphocytes % 17.9 Mean Corpuscular Hemoglobin 30.9 Mean Corpuscular Hemoglobin Concent 33.4 Mean Corpuscular Volume 92.5 Mean Platelet Volume 8.2 Monocytes # 0.7 Monocytes % 7.2 Neutrophils # 7.2 Neutrophils % 72.1 Nucleated Red Blood Cells # 0.0 Nucleated Red Blood Cells % 0.0 Platelet Count 264 # Potassium Level 4.1 Red Blood Count 3.37 L Red Cell Distribution Width 13.8 Sodium Level 141 Vancomycin Level Trough 11.3 White Blood Count 10.0 Test 08/26/16 08:10 08/26/16 12:26 Bedside Glucose 79 146 Medications Medications Current Medications Acetaminophen (Tylenol Tab) 1,000 mg Q4 PRN PO PAIN AND OR ELEVATED TEMP; Start 08/23/16 at 16:00 Acetaminophen (Tylenol Tab) 650 mg Q4 PRN PO PAIN AND OR ELEVATED TEMP; Start 08/23/16 at 16:00 Aspirin (Aspirin) 81 mg DAILY PO Last administered on 08/26/16at 09:53; Admin Dose 81 MG; Start 08/24/16 at 09:00 Glucose (Glutose) 22.5 gm PRN PO ; Start 08/23/16 at 16:00 Fenofibrate (Tricor) 145 mg QAM PO Last administered on 08/26/16at 09:50; Admin Dose 145 MG; Start 08/24/16 at 09:00 Lidocaine (Lidoderm) 1 patch DAILY TD Last administered on 08/26/16at 09:52; Admin Dose 1 PATCH; Start 08/24/16 at 09:00 Sodium Biphosphate/ Sodium Phosphate (Fleet Enema) 133 ml DAILY PRN [place] CONSTIPATION; Start 08/23/16 at 16:00 Senna (Senokot) 2 tab QHS PO Last administered on 08/24/16at 21:40; Admin Dose 2 TAB; Start 08/23/16 at 21:00 Multivitamins/ Minerals (Theragran-M) 1 tab QAM PO Last administered on at 09:53; Admin Dose 1 TAB; Start 08/24/16 at 09:00 Ondansetron HCl (Zofran Inj) 4 mg Q6H PRN IV NAUSEA AND/OR VOMITING; Start at 16:30 Nitroglycerin (Nitroglycerin (Sl Tab) 0.4 Mg) 1 tab Q5M PRN SL CHEST PAIN; Start 08/23/16 at 16:30 Docusate Sodium (Colace) 100 mg Q12H PRN PO CONSTIPATION; Start 08/23/16 at 16 :30 Magnesium Hydroxide (Milk Of Mag) 30 ml DAILY PRN PO CONSTIPATION; Start 08/23 at 16:30 Bisacodyl (Dulcolax Supp) 10 mg DAILY PRN [place] CONSTIPATION; Start 08/23/16 at 16:30 Enoxaparin Sodium (Lovenox) 40 mg DAILY SC Last administered on 08/26/16at 09: 52; Admin Dose 40 MG; Start 08/24/16 at 09:00 Metoprolol Tartrate (Lopressor) 25 mg BID PO Last administered on 08/26/16at 10 :01; Admin Dose 25 MG; Start 08/23/16 at 21:00 Metoprolol Tartrate 5 mg 5 mg Q4H PRN IV HR>110 Hold SBP<100; Start 08/23/16 at 16:30 Potassium Chloride/Sodium Chloride 1,000 ml @ 60 mls/hr [id number] IV Last administered on 08/25/16at 22:38; Admin Dose 60 MLS/HR; Start 08/23/16 at 17:00 Cefepime HCl (Maxipime 2gm/50 ml (Pmx)) 50 ml @ 100 mls/hr Q24H IVPB Last administered on 08/25/16 21:15; Admin Dose 100 MLS/HR; Start 08/23/16 at 21: 00 Famotidine (Pepcid) 20 mg DAILY PO Last administered on 08/26/16 10:15; Admin Dose 20 MG; Start 08/24/16 at 09:00 Calcium/Vitamin D (Oyster Shell/ Vit-D (500/200)) 1 tab BID PO Last administered on 08/26/16 10:28; Admin Dose 1 TAB; Start 08/23/16 at 21:00 Insulin Detemir (Levemir) 15 unit QHS SC Last administered on 08/25/16 21:35 ; Admin Dose 15 UNIT; Start 08/23/16 at 21:00 Atorvastatin Calcium 10 mg 10 mg DAILY@21 PO Last administered on 08/25/16at 21 :15; Admin Dose 10 MG; Start 08/23/16 at 21:00 Vancomycin HCl/ Sodium Chloride (Vancocin/NS) 150 ml @ 75 mls/hr Q24H IVPB Last administered on 08/26/16at 10:07; Admin Dose 75 MLS/HR; Start 08/24/16 at 09:00 Guaifenesin/ Codeine Phosphate (Robitussin Ac Liquid Cup) 5 ml Q6 PRN PO COUGH Last administered on 08/25/16at 06:18; Admin Dose 5 ML; Start 08/24/16 at 10:30 Miscellaneous Information (* Miscellaneous Pharmacy Order) 1 ea DAILY PRN XX PAIN; Start 08/24/16 at 10:30; Status UNV Miscellaneous Information (* Miscellaneous Pharmacy Order) 5 ea DAILY PO ; Start 08/25/16 at 09:00; Status UNV Morphine Sulfate (morphine) 4 mg Q4H PRN IV PAIN LEVEL 4-7; Start 08/24/16 at 17:00 Diagnostic Test (Pha) (Accucheck) 1 ea 02 XX Last administered on 08/26/16at 02 :56; Admin Dose 1 EA; Start 08/26/16 at 02:00 Miscellaneous Information 1 ea NOTE XX ; Start 08/25/16 at 13:00 Glucose (Glutose) 15 gm Q15M PRN PO DECREASED GLUCOSE; Start 08/25/16 at 13:00 Glucose (Glutose) 22.5 gm Q15M PRN PO DECREASED GLUCOSE; Start 08/25/16 at 13: 00 Dextrose (D50w Syringe) 25 ml Q15M PRN IV DECREASED GLUCOSE; Start 08/25/16 at 13:00 Dextrose (D50w Syringe) 50 ml Q15M PRN IV DECREASED GLUCOSE; Start 08/25/16 at 13:00 Glucagon (Glucagen) 1 mg Q15M PRN IM DECREASED GLUCOSE; Start 08/25/16 at 13: 00 Glucose (Glutose) 15 gm Q15M PRN BUCCAL DECREASED GLUCOSE; Start 08/25/16 at 13:00 ANNALISE GLEASON Aug 26, 2016 17:00
[2016-08-26] MEDS: ACETAMINOPHEN 500 MG TAB PO PRN (18:38)
[2016-08-26] MEDS: GUAIFENESIN/CODEINE 5ML CUP PO PRN (21:28)
[2016-08-26] MEDS: SENNA TAB PO SCH (21:29)
[2016-08-26] MEDS: ATORVASTATIN 10 MG TAB PO SCH (21:29)
[2016-08-26] MEDS: CEFEPIME 2GM/50 ML (PMX) 50 ML IVPB SCH (21:34)
[2016-08-26] MEDS: INSULIN DETEMIR [LEVEMIR] 3ML CART SC SCH (21:50)
[2016-08-26] MEDS: NEOMYC/POLYMYX/BACIT 30 GM OINT TOP SCH (23:36)
[2016-08-27] VITALS (12 sets, daily range): BP systolic 137–174; BP diastolic 63–81; PULSE 60–72; RESP 18
[2016-08-27] MEDS ORDERED: morphine 4 MG/ML VIAL IV PRN (01:00)
[2016-08-27] MEDS: ACCUCHECK XX SCH (02:00)
[2016-08-27 07:27] LABS: BASOPHILS % 0.2 % (0.0-2.0); EOSINOPHILS # 0.3 10^3/ul (0.0-0.5); EOSINOPHILS % 3.6 % (0.0-7.0); HEMOGLOBIN 10.2 g/dl (12.0-16.0); LYMPHOCYTES # 2.2 10^3/ul (0.8-2.9); LYMPHOCYTES % 27.5 % (15.0-51.0); MEAN CORPUSCULAR HEMOGLOBIN 31.5 pg (29.0-33.0); MEAN CORPUSCULAR HGB CONC 33.8 g/dl (32.0-37.0); MEAN CORPUSCULAR VOLUME 93.1 fl (82.0-101.0); MEAN PLATELET VOLUME 8.2 fl (7.4-10.4); MONOCYTE # 0.6 10^3/ul (0.3-0.9); MONOCYTES % 7.8 % (0.0-11.0); NEUTROPHIL # 4.8 10^3/ul (1.6-7.5); NEUTROPHILS % 60.9 % (39.0-77.0); PLATELET COUNT 283 10^3/UL (140-440); RED BLOOD COUNT 3.23 10^6/ul (4.20-5.40); RED CELL DISTRIBUTION WIDTH 13.5 % (11.5-14.5); UNCORRECTED WBC 7.9 10^3/ul (4.8-10.8); WHITE BLOOD COUNT 7.9 10^3/ul (4.8-10.8)
[2016-08-27 07:40] LABS: CONDITION 1
[2016-08-27 07:44] LABS: POTASSIUM 4.3 mmol/L (3.5-5.1)
[2016-08-27 07:47] LABS: CALCIUM 9.5 mg/dl (8.4-10.2); CREATININE 0.7 mg/dl (0.44-1.00)
[2016-08-27] MEDS: INSULIN ASPART [NOVOLOG] 3 ML PEN SC SCH ×4 (08:00→20:10)
[2016-08-27] MEDS: FENOFIBRATE 145 MG TAB PO SCH (08:26)
[2016-08-27] MEDS: ASPIRIN 81 MG TAB PO SCH (08:26)
[2016-08-27] MEDS: METOPROLOL 25 MG TAB PO SCH ×2 (08:27→20:06)
[2016-08-27] MEDS: CALCIUM/VITAMIN D (500/200) TAB PO SCH ×2 (08:27→20:06)
[2016-08-27] MEDS: FAMOTIDINE 20 MG TAB PO SCH (08:27)
[2016-08-27] MEDS: MULTIVITAMINS/MINERALS TAB PO SCH (08:27)
[2016-08-27] MEDS: LIDOCAINE 5% PATCH TD SCH (08:28)
[2016-08-27] MEDS: NEOMYC/POLYMYX/BACIT 30 GM OINT TOP SCH ×3 (08:30→20:04)
[2016-08-27] MEDS: ENOXAPARIN 40 MG/0.4 ML SYG SC SCH (08:38)
[2016-08-27] MEDS: ACETAMINOPHEN 325 MG TAB PO PRN (08:51)
[2016-08-27] MEDS: LEVALBUTEROL (NEB) 0.63 MG/3 ML AMP HHN SCH ×2 (09:37→21:03)
[2016-08-27] MEDS: VANCOMYCIN 750 MG in SOD CHLORIDE 0.9% 150 ML IVPB SCH (12:48)
--- NOTE | 2016-08-27 15:25 | PN ---
Date/Time of Note Date/Time of Note DATE: 08/27/16 TIME: 15:25 Assessment/Plan VTE Prophylaxis VTE Prophylaxis Intervention: LMWH Lines/Catheters IV [facility] [place] [facility] Urinary Cath still in place: Yes Assessment/Plan Chief Complaint/Hosp Course 1. Healthcare facility acquired pneumonia - IV antibiotics 2. Non-ST elevation myocardial infarction - cardiology to evaluate 3. Hypertension - continue meds 4. Diabetes mellitus - monitor blood sugar Problems: Subjective 24 Hr Interval Summary Free Text/Dictation Patient has no complaints Exam/Review of Systems Vital Signs Vitals Vital Signs Date Time Temp Pulse Resp B/P Pulse Ox O2 Delivery O2 Flow Rate FiO2 08/27/16 15:20 98.7 74 18 137/81 96 08/27/16 09:40 Nasal Cannula 2.0 Intake and Output 08/26/16 08/26/16 08/27/16 15:00 23:00 07:00 Intake Total 540 ml 300 ml Output Total 1120 ml 1300 ml Balance -580 ml -1000 ml Exam Constitutional: alert, well developed Respiratory: diminished breath sounds Cardiovascular: regular rate and rhythm Gastrointestinal: non-tender, soft Extremities: normal pulses Results Result Diagram: 08/27/16 0647 08/27/16 0647 Results 24 hrs Laboratory Tests Test 08/26/16 17:20 08/26/16 21:48 08/27/16 06:47 08/27/16 08:08 Bedside Glucose 109 148 79 Anion Gap 9 Basophils # 0.0 Basophils % 0.2 Blood Urea Nitrogen 13 Calcium Level 9.5 Carbon Dioxide Level 31 Chloride Level 106 Creatinine 0.70 Eosinophils # 0.3 Eosinophils % 3.6 Glucose Level 76 Hematocrit 30.0 L Hemoglobin 10.2 L Lymphocytes # 2.2 Lymphocytes % 27.5 Mean Corpuscular Hemoglobin 31.5 Mean Corpuscular Hemoglobin Concent 33.8 Mean Corpuscular Volume 93.1 Mean Platelet Volume 8.2 Monocytes # 0.6 Monocytes % 7.8 Neutrophils # 4.8 Neutrophils % 60.9 Nucleated Red Blood Cells # 0.0 Nucleated Red Blood Cells % 0.0 Platelet Count 283 Potassium Level 4.3 Red Blood Count 3.23 L Red Cell Distribution Width 13.5 Sodium Level 142 White Blood Count 7.9 # Test 08/27/16 12:10 Bedside Glucose 96 Medications Medications Current Medications Acetaminophen (Tylenol Tab) 1,000 mg Q4 PRN PO PAIN AND OR ELEVATED TEMP Last administered on 08/26/16 18:38; Admin Dose 1,000 MG; Start 08/23/16 at 16:00 Acetaminophen (Tylenol Tab) 650 mg Q4 PRN PO PAIN AND OR ELEVATED TEMP Last administered on 08/27/16 08:51; Admin Dose 650 MG; Start 08/23/16 at 16:00 Aspirin (Aspirin) 81 mg DAILY PO Last administered on 08/27/16 08:26; Admin Dose 81 MG; Start 08/24/16 at 09:00 Glucose (Glutose) 22.5 gm PRN PO ; Start 08/23/16 at 16:00 Fenofibrate (Tricor) 145 mg QAM PO Last administered on 08/27/16 08:26; Admin Dose 145 MG; Start 08/24/16 at 09:00 Lidocaine (Lidoderm) 1 patch DAILY TD Last administered on 08/27/16 08:28; Admin Dose 1 PATCH; Start 08/24/16 at 09:00 Sodium Biphosphate/ Sodium Phosphate (Fleet Enema) 133 ml DAILY PRN [place] CONSTIPATION Last administered on 08/26/16 18:38; Admin Dose 133 ML; Start at 16:00 Senna (Senokot) 2 tab QHS PO Last administered on 08/26/16 21:29; Admin Dose 2 TAB; Start 08/23/16 at 21:00 Multivitamins/ Minerals (Theragran-M) 1 tab QAM PO Last administered on 08:27; Admin Dose 1 TAB; Start 08/24/16 at 09:00 Ondansetron HCl (Zofran Inj) 4 mg Q6H PRN IV NAUSEA AND/OR VOMITING; Start at 16:30 Nitroglycerin (Nitroglycerin (Sl Tab) 0.4 Mg) 1 tab Q5M PRN SL CHEST PAIN; Start 08/23/16 at 16:30 Docusate Sodium (Colace) 100 mg Q12H PRN PO CONSTIPATION; Start 08/23/16 at 16 :30 Magnesium Hydroxide (Milk Of Mag) 30 ml DAILY PRN PO CONSTIPATION; Start 08/23 at 16:30 Bisacodyl (Dulcolax Supp) 10 mg DAILY PRN [place] CONSTIPATION; Start 08/23/16 at 16:30 Enoxaparin Sodium (Lovenox) 40 mg DAILY SC Last administered on 08/27/16at 08: 38; Admin Dose 40 MG; Start 08/24/16 at 09:00 Metoprolol Tartrate (Lopressor) 25 mg BID PO Last administered on 08/27/16 08 :27; Admin Dose 25 MG; Start 08/23/16 at 21:00 Metoprolol Tartrate 5 mg 5 mg Q4H PRN IV HR>110 Hold SBP<100; Start 08/23/16 at 16:30 Potassium Chloride/Sodium Chloride 1,000 ml @ 60 mls/hr [id number] IV Last administered on 08/26/16 18:25; Admin Dose 60 MLS/HR; Start 08/23/16 at 17:00 Cefepime HCl (Maxipime 2gm/50 ml (Pmx)) 50 ml @ 100 mls/hr Q24H IVPB Last administered on 08/26/16at 21:34; Admin Dose 100 MLS/HR; Start 08/23/16 at 21: 00 Famotidine (Pepcid) 20 mg DAILY PO Last administered on 08/27/16 08:27; Admin Dose 20 MG; Start 08/24/16 at 09:00 Calcium/Vitamin D (Oyster Shell/ Vit-D (500/200)) 1 tab BID PO Last administered on 08/27/16 08:27; Admin Dose 1 TAB; Start 08/23/16 at 21:00 Insulin Detemir (Levemir) 15 unit QHS SC Last administered on 08/26/16 21:50 ; Admin Dose 15 UNIT; Start 08/23/16 at 21:00 Atorvastatin Calcium (Lipitor) 10 mg DAILY@21 PO Last administered on 21:29; Admin Dose 10 MG; Start 08/23/16 at 21:00 Guaifenesin/ Codeine Phosphate (Robitussin Ac Liquid Cup) 5 ml Q6 PRN PO COUGH Last administered on 08/26/16 21:28; Admin Dose 5 ML; Start 08/24/16 at 10:30 Miscellaneous Information (* Miscellaneous Pharmacy Order) 5 ea DAILY PO ; Start 08/25/16 at 09:00; Status UNV Diagnostic Test (Pha) (Accucheck) 1 ea 02 XX Last administered on 08/26/16at 02 :56; Admin Dose 1 EA; Start 08/26/16 at 02:00 Miscellaneous Information 1 ea NOTE XX ; Start 08/25/16 at 13:00 Glucose (Glutose) 15 gm Q15M PRN PO DECREASED GLUCOSE; Start 08/25/16 at 13:00 Glucose (Glutose) 22.5 gm Q15M PRN PO DECREASED GLUCOSE; Start 08/25/16 at 13: 00 Dextrose (D50w Syringe) 25 ml Q15M PRN IV DECREASED GLUCOSE; Start 08/25/16 at 13:00 Dextrose (D50w Syringe) 50 ml Q15M PRN IV DECREASED GLUCOSE; Start 08/25/16 at 13:00 Glucagon (Glucagen) 1 mg Q15M PRN IM DECREASED GLUCOSE; Start 08/25/16 at 13: 00 Glucose (Glutose) 15 gm Q15M PRN BUCCAL DECREASED GLUCOSE; Start 08/25/16 at 13:00 Neomycin/ Polymyxin/ Bacitracin (Neosporin Topical Oint) 1 applic TID TOP Last administered on 08/27/16at 12:48; Admin Dose 1 APPLIC; Start 08/26/16 at 23:00 Morphine Sulfate (morphine) 1 mg Q4H PRN IV PAIN LEVEL 7-10; Start 08/26/16 at 23:30 Miscellaneous Information (*Order Clarification Bulletin) VITAMIN C LIQUID: PLEASE BR... Q8H XX ; Start 08/27/16 at 13:30 NEHA WILSON Aug 27, 2016 15:25
--- NOTE | 2016-08-27 15:33 | CONS ---
Date/Time of Note Date/Time of Note DATE: 08/27/16 TIME: 15:27 Assessment/Plan Assessment/Plan Chief Complaint/Hosp Course IMPRESSION: 1. Positive troponin consistent with non-ST elevation myocardial infarction. Possibly demand event in the setting of tachycardia.-last enzymes downtrending. Conservative management 2. Abnormal electrocardiogram with nonspecific ST and T abnormalities and poor R-wave progression across the anterior precordial leads in the setting of positive troponins. 3. Tachycardia consistent with sinus tachycardia in the setting of volume depletion. 4. Hypertension, reasonable 5. Altered mental state/encephalopathy. 6. Dyslipidemia. 7. Pneumonia by chest x-ray. Possible reason for patient's possible demand ischemia. 8. Diabetes mellitus. 9. Possible urinary tract infection. Recc: -Tele -trend cardiac enzymes -continue asa -Continue BB -Continue statin -Continue abx's and f/u cx data Problems: Consultation Date/Type/Reason Admit Date/Time Aug 23, 2016 at 09:42 Initial Consult Date 08/27/2016 Type of Consultation: cardiology Reason for Consultation nstemi Referring Provider: VALENTIN RHOADES MD Exam/Review of Systems Vital Signs Vitals Vital Signs Date Time Temp Pulse Resp B/P Pulse Ox O2 Delivery O2 Flow Rate FiO2 08/27/16 15:20 98.7 74 18 137/81 96 08/27/16 09:40 Nasal Cannula 2.0 Intake and Output 08/26/16 08/26/16 08/27/16 15:00 23:00 07:00 Intake Total 540 ml 300 ml Output Total 1120 ml 1300 ml Balance -580 ml -1000 ml Exam Review of Systems: CONSTITUTIONAL: No fevers, chills. PULMONARY: No sob CARDIOVASCULAR: No chest pain/palpitations GASTROINTESTINAL: No nausea/vomiting. GENITOURINARY: No hematuria/dysuria. MUSCULOSKELETAL: No myagias/arthalgias. PSYCHIATRIC: The patient denies depression. NEUROLOGIC: lethargic Constitutional: other (sleeping, easily arousable) Psych: no complaints Head: normocephalic ENMT: mucosa pink and moist Neck: jvd (9 cm water), supple Respiratory: diminished breath sounds (at bases/B) Cardiovascular: regular rate and rhythm Gastrointestinal: non-tender, soft Musculoskeletal: muscle tone (normal) Extremities: edema (trace/B) Neurological: lethargic Results Result Diagram: 08/27/16 0647 08/27/16 0647 Results 24 hrs Laboratory Tests Test 08/26/16 17:20 08/26/16 21:48 08/27/16 06:47 08/27/16 08:08 Bedside Glucose 109 148 79 Anion Gap 9 Basophils # 0.0 Basophils % 0.2 Blood Urea Nitrogen 13 Calcium Level 9.5 Carbon Dioxide Level 31 Chloride Level 106 Creatinine 0.70 Eosinophils # 0.3 Eosinophils % 3.6 Glucose Level 76 Hematocrit 30.0 L Hemoglobin 10.2 L Lymphocytes # 2.2 Lymphocytes % 27.5 Mean Corpuscular Hemoglobin 31.5 Mean Corpuscular Hemoglobin Concent 33.8 Mean Corpuscular Volume 93.1 Mean Platelet Volume 8.2 Monocytes # 0.6 Monocytes % 7.8 Neutrophils # 4.8 Neutrophils % 60.9 Nucleated Red Blood Cells # 0.0 Nucleated Red Blood Cells % 0.0 Platelet Count 283 Potassium Level 4.3 Red Blood Count 3.23 L Red Cell Distribution Width 13.5 Sodium Level 142 White Blood Count 7.9 # Test 08/27/16 12:10 Bedside Glucose 96 Medications Medications Current Medications Acetaminophen (Tylenol Tab) 1,000 mg Q4 PRN PO PAIN AND OR ELEVATED TEMP Last administered on 08/26/16at 18:38; Admin Dose 1,000 MG; Start 08/23/16 at 16:00 Acetaminophen (Tylenol Tab) 650 mg Q4 PRN PO PAIN AND OR ELEVATED TEMP Last administered on 08/27/16at 08:51; Admin Dose 650 MG; Start 08/23/16 at 16:00 Aspirin (Aspirin) 81 mg DAILY PO Last administered on 08/27/16at 08:26; Admin Dose 81 MG; Start 08/24/16 at 09:00 Glucose (Glutose) 22.5 gm PRN PO ; Start 08/23/16 at 16:00 Fenofibrate (Tricor) 145 mg QAM PO Last administered on 08/27/16at 08:26; Admin Dose 145 MG; Start 08/24/16 at 09:00 Lidocaine (Lidoderm) 1 patch DAILY TD Last administered on 08/27/16 08:28; Admin Dose 1 PATCH; Start 08/24/16 at 09:00 Sodium Biphosphate/ Sodium Phosphate (Fleet Enema) 133 ml DAILY PRN [place] CONSTIPATION Last administered on 08/26/16 18:38; Admin Dose 133 ML; Start at 16:00 Senna (Senokot) 2 tab QHS PO Last administered on 08/26/16at 21:29; Admin Dose 2 TAB; Start 08/23/16 at 21:00 Multivitamins/ Minerals (Theragran-M) 1 tab QAM PO Last administered on 08:27; Admin Dose 1 TAB; Start 08/24/16 at 09:00 Ondansetron HCl (Zofran Inj) 4 mg Q6H PRN IV NAUSEA AND/OR VOMITING; Start at 16:30 Nitroglycerin (Nitroglycerin (Sl Tab) 0.4 Mg) 1 tab Q5M PRN SL CHEST PAIN; Start 08/23/16 at 16:30 Docusate Sodium (Colace) 100 mg Q12H PRN PO CONSTIPATION; Start 08/23/16 at 16 :30 Magnesium Hydroxide (Milk Of Mag) 30 ml DAILY PRN PO CONSTIPATION; Start 08/23 at 16:30 Bisacodyl (Dulcolax Supp) 10 mg DAILY PRN [place] CONSTIPATION; Start 08/23/16 at 16:30 Enoxaparin Sodium (Lovenox) 40 mg DAILY SC Last administered on 08/27/16 08: 38; Admin Dose 40 MG; Start 08/24/16 at 09:00 Metoprolol Tartrate (Lopressor) 25 mg BID PO Last administered on 08/27/16 08 :27; Admin Dose 25 MG; Start 08/23/16 at 21:00 Metoprolol Tartrate 5 mg 5 mg Q4H PRN IV HR>110 Hold SBP<100; Start 08/23/16 at 16:30 Potassium Chloride/Sodium Chloride 1,000 ml @ 60 mls/hr [id number] IV Last administered on 08/26/16at 18:25; Admin Dose 60 MLS/HR; Start 08/23/16 at 17:00 Cefepime HCl (Maxipime 2gm/50 ml (Pmx)) 50 ml @ 100 mls/hr Q24H IVPB Last administered on 08/26/16 21:34; Admin Dose 100 MLS/HR; Start 08/23/16 at 21: 00 Famotidine (Pepcid) 20 mg DAILY PO Last administered on 08/27/16at 08:27; Admin Dose 20 MG; Start 08/24/16 at 09:00 Calcium/Vitamin D (Oyster Shell/ Vit-D (500/200)) 1 tab BID PO Last administered on 08/27/16at 08:27; Admin Dose 1 TAB; Start 08/23/16 at 21:00 Insulin Detemir (Levemir) 15 unit QHS SC Last administered on 08/26/16at 21:50 ; Admin Dose 15 UNIT; Start 08/23/16 at 21:00 Atorvastatin Calcium (Lipitor) 10 mg DAILY@21 PO Last administered on at 21:29; Admin Dose 10 MG; Start 08/23/16 at 21:00 Guaifenesin/ Codeine Phosphate (Robitussin Ac Liquid Cup) 5 ml Q6 PRN PO COUGH Last administered on 08/26/16at 21:28; Admin Dose 5 ML; Start 08/24/16 at 10:30 Miscellaneous Information (* Miscellaneous Pharmacy Order) 5 ea DAILY PO ; Start 08/25/16 at 09:00; Status UNV Diagnostic Test (Pha) (Accucheck) 1 ea 02 XX Last administered on 08/26/16at 02 :56; Admin Dose 1 EA; Start 08/26/16 at 02:00 Miscellaneous Information 1 ea NOTE XX ; Start 08/25/16 at 13:00 Glucose (Glutose) 15 gm Q15M PRN PO DECREASED GLUCOSE; Start 08/25/16 at 13:00 Glucose (Glutose) 22.5 gm Q15M PRN PO DECREASED GLUCOSE; Start 08/25/16 at 13: 00 Dextrose (D50w Syringe) 25 ml Q15M PRN IV DECREASED GLUCOSE; Start 08/25/16 at 13:00 Dextrose (D50w Syringe) 50 ml Q15M PRN IV DECREASED GLUCOSE; Start 08/25/16 at 13:00 Glucagon (Glucagen) 1 mg Q15M PRN IM DECREASED GLUCOSE; Start 08/25/16 at 13: 00 Glucose (Glutose) 15 gm Q15M PRN BUCCAL DECREASED GLUCOSE; Start 08/25/16 at 13:00 Neomycin/ Polymyxin/ Bacitracin (Neosporin Topical Oint) 1 applic TID TOP Last administered on 08/27/16at 12:48; Admin Dose 1 APPLIC; Start 08/26/16 at 23:00 Morphine Sulfate (morphine) 1 mg Q4H PRN IV PAIN LEVEL 7-10; Start 08/26/16 at 23:30 Miscellaneous Information VITAMIN C LIQUID: PLEASE BR... Q8H XX ; Start at 13:30 Vancomycin HCl (Vancocin) 250 ml @ 125 mls/hr Q24H IVPB ; Start 08/28/16 at 13 :00 RJ CIFUENTES Aug 27, 2016 15:32
[2016-08-27] MEDS: 1/2 NS + KCL 20 MEQ 1,000 ML IV SCH ×2 (16:14→20:07)
[2016-08-27] MEDS: ACETAMINOPHEN 500 MG TAB PO PRN (19:26)
[2016-08-27] MEDS: SENNA TAB PO SCH (20:05)
[2016-08-27] MEDS: BISACODYL 10 MG SUPP PR PRN (20:05)
[2016-08-27] MEDS: ATORVASTATIN 10 MG TAB PO SCH (20:06)
[2016-08-27] MEDS: CEFEPIME 2GM/50 ML (PMX) 50 ML IVPB SCH (20:07)
[2016-08-27] MEDS: INSULIN DETEMIR [LEVEMIR] 3ML CART SC SCH (20:23)
[2016-08-28] VITALS (12 sets, daily range): BP systolic 133–189; BP diastolic 60–101; PULSE 56–68; RESP 16–20
[2016-08-28] MEDS: ACCUCHECK XX SCH (01:49)
[2016-08-28] MEDS: ACETAMINOPHEN 500 MG TAB PO PRN (04:50)
[2016-08-28 07:16] LABS: BASOPHILS % 0.1 % (0.0-2.0); EOSINOPHILS # 0.3 10^3/ul (0.0-0.5); EOSINOPHILS % 3.8 % (0.0-7.0); HEMATOCRIT 32.2 % (37.0-47.0); HEMOGLOBIN 10.8 g/dl (12.0-16.0); LYMPHOCYTES # 2.3 10^3/ul (0.8-2.9); LYMPHOCYTES % 27.1 % (15.0-51.0); MEAN CORPUSCULAR HEMOGLOBIN 31.1 pg (29.0-33.0); MEAN CORPUSCULAR HGB CONC 33.4 g/dl (32.0-37.0); MEAN CORPUSCULAR VOLUME 93.3 fl (82.0-101.0); MEAN PLATELET VOLUME 8.3 fl (7.4-10.4); MONOCYTE # 0.8 10^3/ul (0.3-0.9); MONOCYTES % 9.3 % (0.0-11.0); NEUTROPHIL # 5.1 10^3/ul (1.6-7.5); NEUTROPHILS % 59.7 % (39.0-77.0); PLATELET COUNT 304 10^3/UL (140-440); RED BLOOD COUNT 3.45 10^6/ul (4.20-5.40); RED CELL DISTRIBUTION WIDTH 13.9 % (11.5-14.5); UNCORRECTED WBC 8.5 10^3/ul (4.8-10.8); WHITE BLOOD COUNT 8.5 10^3/ul (4.8-10.8)
[2016-08-28 07:17] LABS: POTASSIUM 4.4 mmol/L (3.5-5.1)
[2016-08-28 07:19] LABS: CREATININE 0.74 mg/dl (0.44-1.00)
[2016-08-28 07:21] LABS: CALCIUM 9.7 mg/dl (8.4-10.2)
[2016-08-28 07:24] LABS: CONDITION 1
[2016-08-28] MEDS: INSULIN ASPART [NOVOLOG] 3 ML PEN SC SCH ×4 (08:00→21:00)
[2016-08-28] MEDS: LEVALBUTEROL (NEB) 0.63 MG/3 ML AMP HHN SCH ×2 (09:20→20:23)
[2016-08-28] MEDS: 1/2 NS + KCL 20 MEQ 1,000 ML IV SCH (10:46)
[2016-08-28] MEDS: LIDOCAINE 5% PATCH TD SCH (10:47)
[2016-08-28] MEDS: NEOMYC/POLYMYX/BACIT 30 GM OINT TOP SCH ×3 (10:47→21:54)
[2016-08-28] MEDS: FAMOTIDINE 20 MG TAB PO SCH (10:48)
[2016-08-28] MEDS: ASPIRIN 81 MG TAB PO SCH (10:48)
[2016-08-28] MEDS: FENOFIBRATE 145 MG TAB PO SCH (10:48)
[2016-08-28] MEDS: CALCIUM/VITAMIN D (500/200) TAB PO SCH ×2 (10:48→21:40)
[2016-08-28] MEDS: ASCORBIC ACID 500 MG TAB.CHEW PO SCH (10:48)
[2016-08-28] MEDS: METOPROLOL 25 MG TAB PO SCH ×2 (10:51→21:41)
[2016-08-28] MEDS: MULTIVITAMINS/MINERALS TAB PO SCH (10:51)
[2016-08-28] MEDS: ENOXAPARIN 40 MG/0.4 ML SYG SC SCH (13:23)
[2016-08-28] MEDS: VANCOMYCIN 1 GM in NS 250 ML IVPB SCH (13:26)
[2016-08-28] MEDS ORDERED: DIPHENHYDRAMINE 50 MG INJ IM PRN (13:30)
--- NOTE | 2016-08-28 14:15 | PN ---
Date/Time of Note Date/Time of Note DATE: 08/28/16 TIME: 14:14 Assessment/Plan VTE Prophylaxis VTE Prophylaxis Intervention: LMWH, other Lines/Catheters IV Catheter Type (from Nrs): Saline Lock Urinary Cath still in place: Yes Reason Cath still needed: skin wounds contaminated by urine Assessment/Plan Chief Complaint/Hosp Course 1. Healthcare facility acquired pneumonia - IV antibiotics 2. Non-ST elevation myocardial infarction - monitor 3. Hypertension - continue meds 4. Diabetes mellitus - monitor blood sugar Problems: Subjective 24 Hr Interval Summary Free Text/Dictation Patient is non-Thai speaking but appears comfortable Exam/Review of Systems Vital Signs Vitals Vital Signs Date Time Temp Pulse Resp B/P Pulse Ox O2 Delivery O2 Flow Rate FiO2 08/28/16 13:36 Nasal Cannula 2.0 08/28/16 12:28 68 08/28/16 11:22 97.9 18 147/86 98 Intake and Output 08/27/16 08/27/16 08/28/16 15:00 23:00 07:00 Intake Total 700 ml 250 ml Output Total 1200 ml 700 ml Balance -500 ml -450 ml Exam Constitutional: alert, well developed Neck: supple Respiratory: clear to auscultation Cardiovascular: regular rate and rhythm Gastrointestinal: non-tender, soft Results Result Diagram: 08/28/16 0545 08/28/16 0545 Results 24 hrs Laboratory Tests Test 08/27/16 17:25 08/27/16 20:09 08/28/16 05:45 08/28/16 07:26 Bedside Glucose 121 147 84 Anion Gap 12 Basophils # 0.0 Basophils % 0.1 Blood Urea Nitrogen 15 Calcium Level 9.7 Carbon Dioxide Level 28 Chloride Level 106 Creatinine 0.74 Eosinophils # 0.3 Eosinophils % 3.8 Glucose Level 93 Hematocrit 32.2 L Hemoglobin 10.8 L Lymphocytes # 2.3 Lymphocytes % 27.1 Mean Corpuscular Hemoglobin 31.1 Mean Corpuscular Hemoglobin Concent 33.4 Mean Corpuscular Volume 93.3 Mean Platelet Volume 8.3 Monocytes # 0.8 Monocytes % 9.3 Neutrophils # 5.1 Neutrophils % 59.7 Nucleated Red Blood Cells # 0.0 Nucleated Red Blood Cells % 0.0 Platelet Count 304 Potassium Level 4.4 Red Blood Count 3.45 L Red Cell Distribution Width 13.9 Sodium Level 142 Troponin I 0.147 *H White Blood Count 8.5 Test 08/28/16 12:25 Bedside Glucose 127 Medications Medications Current Medications Acetaminophen (Tylenol Tab) 1,000 mg Q4 PRN PO PAIN AND OR ELEVATED TEMP Last administered on 08/28/16 04:50; Admin Dose 1,000 MG; Start 08/23/16 at 16:00 Acetaminophen (Tylenol Tab) 650 mg Q4 PRN PO PAIN AND OR ELEVATED TEMP Last administered on 08/27/16 08:51; Admin Dose 650 MG; Start 08/23/16 at 16:00 Aspirin (Aspirin) 81 mg DAILY PO Last administered on 08/28/16 10:48; Admin Dose 81 MG; Start 08/24/16 at 09:00 Glucose (Glutose) 22.5 gm PRN PO ; Start 08/23/16 at 16:00 Fenofibrate (Tricor) 145 mg QAM PO Last administered on 08/28/16 10:48; Admin Dose 145 MG; Start 08/24/16 at 09:00 Lidocaine (Lidoderm) 1 patch DAILY TD Last administered on 08/28/16 10:47; Admin Dose 1 PATCH; Start 08/24/16 at 09:00 Sodium Biphosphate/ Sodium Phosphate (Fleet Enema) 133 ml DAILY PRN [place] CONSTIPATION Last administered on 08/26/16 18:38; Admin Dose 133 ML; Start at 16:00 Senna (Senokot) 2 tab QHS PO Last administered on 08/27/16 20:05; Admin Dose 2 TAB; Start 08/23/16 at 21:00 Multivitamins/ Minerals (Theragran-M) 1 tab QAM PO Last administered on 10:51; Admin Dose 1 TAB; Start 08/24/16 at 09:00 Ondansetron HCl (Zofran Inj) 4 mg Q6H PRN IV NAUSEA AND/OR VOMITING Last administered on 08/28/16 04:50; Admin Dose 4 MG; Start 08/23/16 at 16:30 Nitroglycerin (Nitroglycerin (Sl Tab) 0.4 Mg) 1 tab Q5M PRN SL CHEST PAIN; Start 08/23/16 at 16:30 Docusate Sodium (Colace) 100 mg Q12H PRN PO CONSTIPATION; Start 08/23/16 at 16 :30 Magnesium Hydroxide (Milk Of Mag) 30 ml DAILY PRN PO CONSTIPATION; Start 08/23 at 16:30 Bisacodyl (Dulcolax Supp) 10 mg DAILY PRN [place] CONSTIPATION Last administered on 08/27/16at 20:05; Admin Dose 10 MG; Start 08/23/16 at 16:30 Enoxaparin Sodium (Lovenox) 40 mg DAILY SC Last administered on 08/28/16 13: 23; Admin Dose 40 MG; Start 08/24/16 at 09:00 Metoprolol Tartrate (Lopressor) 25 mg BID PO Last administered on 08/28/16 10 :51; Admin Dose 25 MG; Start 08/23/16 at 21:00 Metoprolol Tartrate 5 mg 5 mg Q4H PRN IV HR>110 Hold SBP<100; Start 08/23/16 at 16:30 Potassium Chloride/Sodium Chloride 1,000 ml @ 60 mls/hr [id number] IV Last administered on 08/28/16 10:46; Admin Dose 60 MLS/HR; Start 08/23/16 at 17:00 Cefepime HCl (Maxipime 2gm/50 ml (Pmx)) 50 ml @ 100 mls/hr Q24H IVPB Last administered on 08/27/16 20:07; Admin Dose 100 MLS/HR; Start 08/23/16 at 21: 00 Famotidine (Pepcid) 20 mg DAILY PO Last administered on 08/28/16 10:48; Admin Dose 20 MG; Start 08/24/16 at 09:00 Calcium/Vitamin D (Oyster Shell/ Vit-D (500/200)) 1 tab BID PO Last administered on 08/28/16 10:48; Admin Dose 1 TAB; Start 08/23/16 at 21:00 Insulin Detemir (Levemir) 15 unit QHS SC Last administered on 08/27/16 20:23 ; Admin Dose 15 UNIT; Start 08/23/16 at 21:00 Atorvastatin Calcium (Lipitor) 10 mg DAILY@21 PO Last administered on 20:06; Admin Dose 10 MG; Start 08/23/16 at 21:00 Guaifenesin/ Codeine Phosphate (Robitussin Ac Liquid Cup) 5 ml Q6 PRN PO COUGH Last administered on 08/26/16at 21:28; Admin Dose 5 ML; Start 08/24/16 at 10:30 Ascorbic Acid (Vitamin C) 500 mg DAILY PO Last administered on 08/28/16at 10:48 ; Admin Dose 500 MG; Start 08/28/16 at 09:00 Diagnostic Test (Pha) (Accucheck) 1 ea 02 XX Last administered on 08/26/16at 02 :56; Admin Dose 1 EA; Start 08/26/16 at 02:00 Miscellaneous Information 1 ea NOTE XX ; Start 08/25/16 at 13:00 Glucose (Glutose) 15 gm Q15M PRN PO DECREASED GLUCOSE; Start 08/25/16 at 13:00 Glucose (Glutose) 22.5 gm Q15M PRN PO DECREASED GLUCOSE; Start 08/25/16 at 13: 00 Dextrose (D50w Syringe) 25 ml Q15M PRN IV DECREASED GLUCOSE; Start 08/25/16 at 13:00 Dextrose (D50w Syringe) 50 ml Q15M PRN IV DECREASED GLUCOSE; Start 08/25/16 at 13:00 Glucagon (Glucagen) 1 mg Q15M PRN IM DECREASED GLUCOSE; Start 08/25/16 at 13: 00 Glucose (Glutose) 15 gm Q15M PRN BUCCAL DECREASED GLUCOSE; Start 08/25/16 at 13:00 Neomycin/ Polymyxin/ Bacitracin (Neosporin Topical Oint) 1 applic TID TOP Last administered on 08/28/16at 13:26; Admin Dose 1 APPLIC; Start 08/26/16 at 23:00 Morphine Sulfate 1 mg 1 mg Q4H PRN IV PAIN LEVEL 7-10; Start 08/26/16 at 23:30 Vancomycin HCl (Vancocin) 250 ml @ 125 mls/hr Q24H IVPB Last administered on 08/28/16at 13:26; Admin Dose 125 MLS/HR; Start 08/28/16 at 13:00 NEHA WILSON Aug 28, 2016 14:15
--- NOTE | 2016-08-28 14:21 | CONS ---
Date/Time of Note Date/Time of Note DATE: 08/28/16 TIME: 14:19 Assessment/Plan Assessment/Plan Chief Complaint/Hosp Course IMPRESSION: 1. Positive troponin consistent with non-ST elevation myocardial infarction. Possibly demand event in the setting of tachycardia.-last enzymes downtrending. Conservative management 2. Abnormal electrocardiogram with nonspecific ST and T abnormalities and poor R-wave progression across the anterior precordial leads in the setting of positive troponins. 3. Tachycardia consistent with sinus tachycardia in the setting of volume depletion. 4. Hypertension, reasonable 5. Altered mental state/encephalopathy. 6. Dyslipidemia. 7. Pneumonia by chest x-ray. Possible reason for patient's possible demand ischemia. 8. Diabetes mellitus. 9. Possible urinary tract infection. Recc: -Tele -continue asa -Continue BB -add ACEI to improve BP control -Continue statin -Continue abx's and f/u cx data Problems: Consultation Date/Type/Reason Admit Date/Time Aug 23, 2016 at 09:42 Initial Consult Date 08/27/2016 Type of Consultation: cardiology Reason for Consultation Nstemi Referring Provider: VALENTIN RHOADES MD Exam/Review of Systems Vital Signs Vitals Vital Signs Date Time Temp Pulse Resp B/P Pulse Ox O2 Delivery O2 Flow Rate FiO2 08/28/16 13:36 Nasal Cannula 2.0 08/28/16 12:28 68 08/28/16 11:22 97.9 18 147/86 98 Intake and Output 08/27/16 08/27/16 08/28/16 15:00 23:00 07:00 Intake Total 700 ml 250 ml Output Total 1200 ml 700 ml Balance -500 ml -450 ml Exam Review of Systems: CONSTITUTIONAL: No fevers, chills. PULMONARY: No sob CARDIOVASCULAR: No chest pain/palpitations GASTROINTESTINAL: No nausea/vomiting. GENITOURINARY: No hematuria/dysuria. MUSCULOSKELETAL: No myagias/arthalgias. PSYCHIATRIC: The patient denies depression. NEUROLOGIC: lethargic Constitutional: other (sleeping) Psych: no complaints Head: normocephalic ENMT: mucosa pink and moist Neck: jvd (9 cm water), supple Respiratory: diminished breath sounds (at bases/B) Cardiovascular: regular rate and rhythm Gastrointestinal: non-tender, soft Musculoskeletal: muscle tone (normal) Extremities: edema (trace/B) Neurological: lethargic Results Result Diagram: 08/28/16 0545 08/28/16 0545 Results 24 hrs Laboratory Tests Test 08/27/16 17:25 08/27/16 20:09 08/28/16 05:45 08/28/16 07:26 Bedside Glucose 121 147 84 Anion Gap 12 Basophils # 0.0 Basophils % 0.1 Blood Urea Nitrogen 15 Calcium Level 9.7 Carbon Dioxide Level 28 Chloride Level 106 Creatinine 0.74 Eosinophils # 0.3 Eosinophils % 3.8 Glucose Level 93 Hematocrit 32.2 L Hemoglobin 10.8 L Lymphocytes # 2.3 Lymphocytes % 27.1 Mean Corpuscular Hemoglobin 31.1 Mean Corpuscular Hemoglobin Concent 33.4 Mean Corpuscular Volume 93.3 Mean Platelet Volume 8.3 Monocytes # 0.8 Monocytes % 9.3 Neutrophils # 5.1 Neutrophils % 59.7 Nucleated Red Blood Cells # 0.0 Nucleated Red Blood Cells % 0.0 Platelet Count 304 Potassium Level 4.4 Red Blood Count 3.45 L Red Cell Distribution Width 13.9 Sodium Level 142 Troponin I 0.147 *H White Blood Count 8.5 Test 08/28/16 12:25 Bedside Glucose 127 Medications Medications Current Medications Acetaminophen (Tylenol Tab) 1,000 mg Q4 PRN PO PAIN AND OR ELEVATED TEMP Last administered on 08/28/16at 04:50; Admin Dose 1,000 MG; Start 08/23/16 at 16:00 Acetaminophen (Tylenol Tab) 650 mg Q4 PRN PO PAIN AND OR ELEVATED TEMP Last administered on 08/27/16at 08:51; Admin Dose 650 MG; Start 08/23/16 at 16:00 Aspirin (Aspirin) 81 mg DAILY PO Last administered on 08/28/16at 10:48; Admin Dose 81 MG; Start 08/24/16 at 09:00 Glucose (Glutose) 22.5 gm PRN PO ; Start 08/23/16 at 16:00 Fenofibrate (Tricor) 145 mg QAM PO Last administered on 08/28/16at 10:48; Admin Dose 145 MG; Start 08/24/16 at 09:00 Lidocaine (Lidoderm) 1 patch DAILY TD Last administered on 08/28/16at 10:47; Admin Dose 1 PATCH; Start 08/24/16 at 09:00 Sodium Biphosphate/ Sodium Phosphate (Fleet Enema) 133 ml DAILY PRN [place] CONSTIPATION Last administered on 08/26/16 18:38; Admin Dose 133 ML; Start at 16:00 Senna (Senokot) 2 tab QHS PO Last administered on 08/27/16 20:05; Admin Dose 2 TAB; Start 08/23/16 at 21:00 Multivitamins/ Minerals (Theragran-M) 1 tab QAM PO Last administered on 10:51; Admin Dose 1 TAB; Start 08/24/16 at 09:00 Ondansetron HCl (Zofran Inj) 4 mg Q6H PRN IV NAUSEA AND/OR VOMITING Last administered on 08/28/16 04:50; Admin Dose 4 MG; Start 08/23/16 at 16:30 Nitroglycerin (Nitroglycerin (Sl Tab) 0.4 Mg) 1 tab Q5M PRN SL CHEST PAIN; Start 08/23/16 at 16:30 Docusate Sodium (Colace) 100 mg Q12H PRN PO CONSTIPATION; Start 08/23/16 at 16 :30 Magnesium Hydroxide (Milk Of Mag) 30 ml DAILY PRN PO CONSTIPATION; Start 08/23 at 16:30 Bisacodyl (Dulcolax Supp) 10 mg DAILY PRN [place] CONSTIPATION Last administered on 08/27/16 20:05; Admin Dose 10 MG; Start 08/23/16 at 16:30 Enoxaparin Sodium (Lovenox) 40 mg DAILY SC Last administered on 08/28/16 13: 23; Admin Dose 40 MG; Start 08/24/16 at 09:00 Metoprolol Tartrate (Lopressor) 25 mg BID PO Last administered on 08/28/16 10 :51; Admin Dose 25 MG; Start 08/23/16 at 21:00 Metoprolol Tartrate 5 mg 5 mg Q4H PRN IV HR>110 Hold SBP<100; Start 08/23/16 at 16:30 Potassium Chloride/Sodium Chloride 1,000 ml @ 60 mls/hr [id number] IV Last administered on 08/28/16 10:46; Admin Dose 60 MLS/HR; Start 08/23/16 at 17:00 Cefepime HCl (Maxipime 2gm/50 ml (Pmx)) 50 ml @ 100 mls/hr Q24H IVPB Last administered on 08/27/16at 20:07; Admin Dose 100 MLS/HR; Start 08/23/16 at 21: 00 Famotidine (Pepcid) 20 mg DAILY PO Last administered on 08/28/16at 10:48; Admin Dose 20 MG; Start 08/24/16 at 09:00 Calcium/Vitamin D (Oyster Shell/ Vit-D (500/200)) 1 tab BID PO Last administered on 08/28/16at 10:48; Admin Dose 1 TAB; Start 08/23/16 at 21:00 Insulin Detemir (Levemir) 15 unit QHS SC Last administered on 08/27/16at 20:23 ; Admin Dose 15 UNIT; Start 08/23/16 at 21:00 Atorvastatin Calcium (Lipitor) 10 mg DAILY@21 PO Last administered on at 20:06; Admin Dose 10 MG; Start 08/23/16 at 21:00 Guaifenesin/ Codeine Phosphate (Robitussin Ac Liquid Cup) 5 ml Q6 PRN PO COUGH Last administered on 08/26/16at 21:28; Admin Dose 5 ML; Start 08/24/16 at 10:30 Ascorbic Acid (Vitamin C) 500 mg DAILY PO Last administered on 08/28/16at 10:48 ; Admin Dose 500 MG; Start 08/28/16 at 09:00 Diagnostic Test (Pha) (Accucheck) 1 ea 02 XX Last administered on 08/26/16at 02 :56; Admin Dose 1 EA; Start 08/26/16 at 02:00 Miscellaneous Information 1 ea NOTE XX ; Start 08/25/16 at 13:00 Glucose (Glutose) 15 gm Q15M PRN PO DECREASED GLUCOSE; Start 08/25/16 at 13:00 Glucose (Glutose) 22.5 gm Q15M PRN PO DECREASED GLUCOSE; Start 08/25/16 at 13: 00 Dextrose (D50w Syringe) 25 ml Q15M PRN IV DECREASED GLUCOSE; Start 08/25/16 at 13:00 Dextrose (D50w Syringe) 50 ml Q15M PRN IV DECREASED GLUCOSE; Start 08/25/16 at 13:00 Glucagon (Glucagen) 1 mg Q15M PRN IM DECREASED GLUCOSE; Start 08/25/16 at 13: 00 Glucose (Glutose) 15 gm Q15M PRN BUCCAL DECREASED GLUCOSE; Start 08/25/16 at 13:00 Neomycin/ Polymyxin/ Bacitracin (Neosporin Topical Oint) 1 applic TID TOP Last administered on 08/28/16at 13:26; Admin Dose 1 APPLIC; Start 08/26/16 at 23:00 Morphine Sulfate 1 mg 1 mg Q4H PRN IV PAIN LEVEL 7-10; Start 08/26/16 at 23:30 Vancomycin HCl (Vancocin) 250 ml @ 125 mls/hr Q24H IVPB Last administered on 08/28/16at 13:26; Admin Dose 125 MLS/HR; Start 08/28/16 at 13:00 RJ CIFUENTES Aug 28, 2016 14:21
--- NOTE | 2016-08-28 14:59 | RADRPT ---
Vent Rate: 62 bpm RR Interval: 0 msec CA Interval: 156 msec QRS Duration: 84 msec QT Interval: 376 msec QTC Interval: 381 msec P-R-T [place]: 43 - -14 - 36 degrees Normal sinus rhythm Possible Anterior infarct , age undetermined Abnormal ECG Electronically Signed By: Vaughn Lou [id number]
[2016-08-28] MEDS: SENNA TAB PO SCH (21:40)
[2016-08-28] MEDS: ATORVASTATIN 10 MG TAB PO SCH (21:40)
[2016-08-28] MEDS: INSULIN DETEMIR [LEVEMIR] 3ML CART SC SCH (21:53)
[2016-08-28] MEDS: CEFEPIME 2GM/50 ML (PMX) 50 ML IVPB SCH (21:53)
[2016-08-29] VITALS (13 sets, daily range): BP systolic 127–187; BP diastolic 53–80; PULSE 59–66; RESP 17–19
[2016-08-29] MEDS: ACCUCHECK XX SCH (02:00)
[2016-08-29] MEDS: 1/2 NS + KCL 20 MEQ 1,000 ML IV SCH (06:42)
[2016-08-29] MEDS: INSULIN ASPART [NOVOLOG] 3 ML PEN SC SCH ×4 (07:55→21:00)
[2016-08-29] MEDS: LIDOCAINE 5% PATCH TD SCH ×2 (07:56→09:46)
[2016-08-29] MEDS: ACETAMINOPHEN 500 MG TAB PO PRN (07:56)
[2016-08-29] MEDS: LEVALBUTEROL (NEB) 0.63 MG/3 ML AMP HHN SCH ×2 (08:57→19:43)
[2016-08-29] MEDS: ASCORBIC ACID 500 MG TAB.CHEW PO SCH (09:00)
[2016-08-29] MEDS: ENOXAPARIN 40 MG/0.4 ML SYG SC SCH (09:22)
[2016-08-29] MEDS: FAMOTIDINE 20 MG TAB PO SCH (09:22)
[2016-08-29] MEDS: FENOFIBRATE 145 MG TAB PO SCH (09:22)
[2016-08-29] MEDS: CALCIUM/VITAMIN D (500/200) TAB PO SCH ×2 (09:22→21:14)
[2016-08-29] MEDS: MULTIVITAMINS/MINERALS TAB PO SCH (09:23)
[2016-08-29] MEDS: BENAZEPRIL 10 MG TAB PO SCH (09:23)
[2016-08-29] MEDS: METOPROLOL 25 MG TAB PO SCH ×2 (09:23→21:15)
[2016-08-29] MEDS: ASPIRIN 81 MG TAB PO SCH (09:23)
[2016-08-29] MEDS: NEOMYC/POLYMYX/BACIT 30 GM OINT TOP SCH ×3 (09:24→21:14)
[2016-08-29] MEDS: VANCOMYCIN 1 GM in NS 250 ML IVPB SCH (13:26)
--- NOTE | 2016-08-29 14:22 | PN ---
Date/Time of Note Date/Time of Note DATE: 08/29/16 TIME: 14:21 Assessment/Plan VTE Prophylaxis VTE Prophylaxis Intervention: other Lines/Catheters IV Catheter Type (from Nrs): Peripheral IV Urinary Cath still in place: Yes Reason Cath still needed: skin wounds contaminated by urine Assessment/Plan Chief Complaint/Hosp Course 1. Healthcare facility acquired pneumonia - IV antibiotics 2. Non-ST elevation myocardial infarction - monitor 3. Hypertension - continue meds 4. Diabetes mellitus - monitor blood sugar Problems: Subjective 24 Hr Interval Summary Free Text/Dictation Patient has no complaints, seems to be stable Exam/Review of Systems Vital Signs Vitals Vital Signs Date Time Temp Pulse Resp B/P Pulse Ox O2 Delivery O2 Flow Rate FiO2 08/29/16 12:05 59 08/29/16 11:34 98.0 19 127/80 97 08/29/16 08:59 Nasal Cannula 1.0 Intake and Output 08/28/16 08/28/16 08/29/16 14:59 22:59 06:59 Intake Total 750 ml 1480 ml Output Total 800 ml 550 ml Balance -50 ml 930 ml Exam Constitutional: alert, well developed Neck: supple Respiratory: diminished breath sounds Cardiovascular: regular rate and rhythm Gastrointestinal: non-tender, soft Extremities: normal pulses Results Result Diagram: 08/28/16 0545 08/28/16 0545 Results 24 hrs Laboratory Tests Test 08/28/16 17:49 08/28/16 21:09 08/29/16 07:53 08/29/16 11:52 Bedside Glucose 92 82 73 157 Medications Medications Current Medications Acetaminophen (Tylenol Tab) 1,000 mg Q4 PRN PO PAIN AND OR ELEVATED TEMP Last administered on 08/29/16at 07:56; Admin Dose 1,000 MG; Start 08/23/16 at 16:00 Acetaminophen (Tylenol Tab) 650 mg Q4 PRN PO PAIN AND OR ELEVATED TEMP Last administered on 08/27/16at 08:51; Admin Dose 650 MG; Start 08/23/16 at 16:00 Aspirin (Aspirin) 81 mg DAILY PO Last administered on 08/29/16at 09:23; Admin Dose 81 MG; Start 08/24/16 at 09:00 Glucose (Glutose) 22.5 gm PRN PO ; Start 08/23/16 at 16:00 Fenofibrate (Tricor) 145 mg QAM PO Last administered on 08/29/16 09:22; Admin Dose 145 MG; Start 08/24/16 at 09:00 Lidocaine (Lidoderm) 1 patch DAILY TD Last administered on 08/29/16 09:46; Admin Dose 1 PATCH; Start 08/24/16 at 09:00 Sodium Biphosphate/ Sodium Phosphate (Fleet Enema) 133 ml DAILY PRN [place] CONSTIPATION Last administered on 08/26/16 18:38; Admin Dose 133 ML; Start at 16:00 Senna (Senokot) 2 tab QHS PO Last administered on 08/28/16 21:40; Admin Dose 2 TAB; Start 08/23/16 at 21:00 Multivitamins/ Minerals (Theragran-M) 1 tab QAM PO Last administered on 09:23; Admin Dose 1 TAB; Start 08/24/16 at 09:00 Ondansetron HCl (Zofran Inj) 4 mg Q6H PRN IV NAUSEA AND/OR VOMITING Last administered on 08/28/16 04:50; Admin Dose 4 MG; Start 08/23/16 at 16:30 Nitroglycerin (Nitroglycerin (Sl Tab) 0.4 Mg) 1 tab Q5M PRN SL CHEST PAIN; Start 08/23/16 at 16:30 Docusate Sodium (Colace) 100 mg Q12H PRN PO CONSTIPATION; Start 08/23/16 at 16 :30 Magnesium Hydroxide (Milk Of Mag) 30 ml DAILY PRN PO CONSTIPATION; Start 08/23 at 16:30 Bisacodyl (Dulcolax Supp) 10 mg DAILY PRN [place] CONSTIPATION Last administered on 08/27/16 20:05; Admin Dose 10 MG; Start 08/23/16 at 16:30 Enoxaparin Sodium (Lovenox) 40 mg DAILY SC Last administered on 08/29/16 09: 22; Admin Dose 40 MG; Start 08/24/16 at 09:00 Metoprolol Tartrate (Lopressor) 25 mg BID PO Last administered on 08/29/16 09 :23; Admin Dose 25 MG; Start 08/23/16 at 21:00 Metoprolol Tartrate 5 mg 5 mg Q4H PRN IV HR>110 Hold SBP<100; Start 08/23/16 at 16:30 Potassium Chloride/Sodium Chloride 1,000 ml @ 60 mls/hr [id number] IV Last administered on 08/29/16at 06:42; Admin Dose 60 MLS/HR; Start 08/23/16 at 17:00 Cefepime HCl (Maxipime 2gm/50 ml (Pmx)) 50 ml @ 100 mls/hr Q24H IVPB Last administered on 08/28/16at 21:53; Admin Dose 100 MLS/HR; Start 08/23/16 at 21: 00 Famotidine (Pepcid) 20 mg DAILY PO Last administered on 08/29/16 09:22; Admin Dose 20 MG; Start 08/24/16 at 09:00 Calcium/Vitamin D (Oyster Shell/ Vit-D (500/200)) 1 tab BID PO Last administered on 08/29/16at 09:22; Admin Dose 1 TAB; Start 08/23/16 at 21:00 Insulin Detemir (Levemir) 15 unit QHS SC Last administered on 08/28/16at 21:53 ; Admin Dose 15 UNIT; Start 08/23/16 at 21:00 Atorvastatin Calcium (Lipitor) 10 mg DAILY@21 PO Last administered on at 21:40; Admin Dose 10 MG; Start 08/23/16 at 21:00 Guaifenesin/ Codeine Phosphate (Robitussin Ac Liquid Cup) 5 ml Q6 PRN PO COUGH Last administered on 08/26/16at 21:28; Admin Dose 5 ML; Start 08/24/16 at 10:30 Ascorbic Acid (Vitamin C) 500 mg DAILY PO Last administered on 08/29/16at 09:00 ; Admin Dose 500 MG; Start 08/28/16 at 09:00 Diagnostic Test (Pha) (Accucheck) 1 ea 02 XX Last administered on 08/26/16at 02 :56; Admin Dose 1 EA; Start 08/26/16 at 02:00 Miscellaneous Information 1 ea NOTE XX ; Start 08/25/16 at 13:00 Glucose (Glutose) 15 gm Q15M PRN PO DECREASED GLUCOSE; Start 08/25/16 at 13:00 Glucose (Glutose) 22.5 gm Q15M PRN PO DECREASED GLUCOSE; Start 08/25/16 at 13: 00 Dextrose (D50w Syringe) 25 ml Q15M PRN IV DECREASED GLUCOSE; Start 08/25/16 at 13:00 Dextrose (D50w Syringe) 50 ml Q15M PRN IV DECREASED GLUCOSE; Start 08/25/16 at 13:00 Glucagon (Glucagen) 1 mg Q15M PRN IM DECREASED GLUCOSE; Start 08/25/16 at 13: 00 Glucose (Glutose) 15 gm Q15M PRN BUCCAL DECREASED GLUCOSE; Start 08/25/16 at 13:00 Neomycin/ Polymyxin/ Bacitracin (Neosporin Topical Oint) 1 applic TID TOP Last administered on 08/29/16at 12:17; Admin Dose 1 APPLIC; Start 08/26/16 at 23:00 Morphine Sulfate 1 mg 1 mg Q4H PRN IV PAIN LEVEL 7-10; Start 08/26/16 at 23:30 Vancomycin HCl (Vancocin) 250 ml @ 125 mls/hr Q24H IVPB Last administered on 08/29/16at 13:26; Admin Dose 125 MLS/HR; Start 08/28/16 at 13:00 Benazepril HCl (Lotensin) 10 mg DAILY PO Last administered on 08/29/16at 09:23 ; Admin Dose 10 MG; Start 08/29/16 at 09:00 NEHA WILSON Aug 29, 2016 14:22
[2016-08-29 17:56] LABS: BASOPHILS % 0.5 % (0.0-2.0); EOSINOPHILS # 0.3 10^3/ul (0.0-0.5); EOSINOPHILS % 3.5 % (0.0-7.0); HEMOGLOBIN 10.6 g/dl (12.0-16.0); LYMPHOCYTES # 2.5 10^3/ul (0.8-2.9); LYMPHOCYTES % 26.5 % (15.0-51.0); MEAN CORPUSCULAR HEMOGLOBIN 30.7 pg (29.0-33.0); MEAN CORPUSCULAR HGB CONC 33.1 g/dl (32.0-37.0); MEAN CORPUSCULAR VOLUME 92.7 fl (82.0-101.0); MEAN PLATELET VOLUME 7.7 fl (7.4-10.4); MONOCYTE # 0.9 10^3/ul (0.3-0.9); NEUTROPHIL # 5.5 10^3/ul (1.6-7.5); NEUTROPHILS % 59.5 % (39.0-77.0); PLATELET COUNT 359 10^3/UL (140-440); RED BLOOD COUNT 3.45 10^6/ul (4.20-5.40); RED CELL DISTRIBUTION WIDTH 14.1 % (11.5-14.5); UNCORRECTED WBC 9.3 10^3/ul (4.8-10.8); WHITE BLOOD COUNT 9.3 10^3/ul (4.8-10.8)
[2016-08-29 18:01] LABS: CONDITION 1
[2016-08-29 18:03] LABS: POTASSIUM 5.1 mmol/L (3.5-5.1)
[2016-08-29 18:05] LABS: CREATININE 0.78 mg/dl (0.44-1.00)
[2016-08-29 18:06] LABS: CALCIUM 9.9 mg/dl (8.4-10.2)
--- NOTE | 2016-08-29 18:10 | CONS ---
Date/Time of Note Date/Time of Note DATE: 08/29/16 TIME: 18:09 Assessment/Plan Assessment/Plan Chief Complaint/Hosp Course IMPRESSION: 1. Positive troponin consistent with non-ST elevation myocardial infarction. Possibly demand event in the setting of tachycardia.-last enzymes downtrending. Conservative management 2. Abnormal electrocardiogram with nonspecific ST and T abnormalities and poor R-wave progression across the anterior precordial leads in the setting of positive troponins. 3. Tachycardia consistent with sinus tachycardia in the setting of volume depletion. 4. Hypertension, reasonable 5. Altered mental state/encephalopathy. 6. Dyslipidemia. 7. Pneumonia by chest x-ray. Possible reason for patient's possible demand ischemia. 8. Diabetes mellitus. 9. Possible urinary tract infection. Recc: -Tele -continue asa and add plavix to maximize medical therapy. -Continue BB/ACEI -Continue statin -Continue abx's and f/u cx data Problems: Consultation Date/Type/Reason Admit Date/Time Aug 23, 2016 at 09:42 Initial Consult Date 08/27/2016 Type of Consultation: cardiology Reason for Consultation [email or web address] Referring Provider: VALENTIN RHOADES MD Exam/Review of Systems Vital Signs Vitals Vital Signs Date Time Temp Pulse Resp B/P Pulse Ox O2 Delivery O2 Flow Rate FiO2 08/29/16 16:05 66 08/29/16 15:37 98.4 19 135/53 99 08/29/16 08:59 Nasal Cannula 1.0 Intake and Output 08/28/16 08/28/16 08/29/16 15:00 23:00 07:00 Intake Total 750 ml 1480 ml Output Total 800 ml 550 ml Balance -50 ml 930 ml Exam Review of Systems: CONSTITUTIONAL: No fevers, chills. PULMONARY: No sob CARDIOVASCULAR: No chest pain/palpitations GASTROINTESTINAL: No nausea/vomiting. GENITOURINARY: No hematuria/dysuria. MUSCULOSKELETAL: No myagias/arthalgias. PSYCHIATRIC: The patient denies depression. NEUROLOGIC: lethargic Constitutional: alert Psych: no complaints Head: normocephalic ENMT: mucosa pink and moist Neck: jvd (8-9 cm water), supple Respiratory: diminished breath sounds (at bases/B) Cardiovascular: regular rate and rhythm Gastrointestinal: non-tender, soft Musculoskeletal: muscle tone (normal) Extremities: edema (none) Neurological: lethargic Results Result Diagram: 08/29/16 1732 08/29/16 1732 Results 24 hrs Laboratory Tests Test 08/28/16 21:09 08/29/16 07:53 08/29/16 11:52 08/29/16 16:50 Bedside Glucose 82 73 157 165 Test 08/29/16 17:32 Anion Gap Pending Basophils # 0.0 Basophils % 0.5 Blood Urea Nitrogen Pending Calcium Level Pending Carbon Dioxide Level Pending Chloride Level 102 Creatinine Pending Eosinophils # 0.3 Eosinophils % 3.5 Glucose Level Pending Hematocrit 32.0 L Hemoglobin 10.6 L Lymphocytes # 2.5 Lymphocytes % 26.5 Mean Corpuscular Hemoglobin 30.7 Mean Corpuscular Hemoglobin Concent 33.1 Mean Corpuscular Volume 92.7 Mean Platelet Volume 7.7 Monocytes # 0.9 Monocytes % 10.0 Neutrophils # 5.5 Neutrophils % 59.5 Nucleated Red Blood Cells # 0.0 Nucleated Red Blood Cells % 0.0 Platelet Count 359 Potassium Level 5.1 Red Blood Count 3.45 L Red Cell Distribution Width 14.1 Sodium Level 140 White Blood Count 9.3 Medications Medications Current Medications Acetaminophen (Tylenol Tab) 1,000 mg Q4 PRN PO PAIN AND OR ELEVATED TEMP Last administered on 08/29/16at 07:56; Admin Dose 1,000 MG; Start 08/23/16 at 16:00 Acetaminophen (Tylenol Tab) 650 mg Q4 PRN PO PAIN AND OR ELEVATED TEMP Last administered on 08/27/16at 08:51; Admin Dose 650 MG; Start 08/23/16 at 16:00 Aspirin (Aspirin) 81 mg DAILY PO Last administered on 08/29/16at 09:23; Admin Dose 81 MG; Start 08/24/16 at 09:00 Glucose (Glutose) 22.5 gm PRN PO ; Start 08/23/16 at 16:00 Fenofibrate (Tricor) 145 mg QAM PO Last administered on 08/29/16at 09:22; Admin Dose 145 MG; Start 08/24/16 at 09:00 Lidocaine (Lidoderm) 1 patch DAILY TD Last administered on 08/29/16at 09:46; Admin Dose 1 PATCH; Start 08/24/16 at 09:00 Sodium Biphosphate/ Sodium Phosphate (Fleet Enema) 133 ml DAILY PRN [place] CONSTIPATION Last administered on 08/26/16 18:38; Admin Dose 133 ML; Start at 16:00 Senna (Senokot) 2 tab QHS PO Last administered on 08/28/16 21:40; Admin Dose 2 TAB; Start 08/23/16 at 21:00 Multivitamins/ Minerals (Theragran-M) 1 tab QAM PO Last administered on 09:23; Admin Dose 1 TAB; Start 08/24/16 at 09:00 Ondansetron HCl (Zofran Inj) 4 mg Q6H PRN IV NAUSEA AND/OR VOMITING Last administered on 08/28/16 04:50; Admin Dose 4 MG; Start 08/23/16 at 16:30 Nitroglycerin (Nitroglycerin (Sl Tab) 0.4 Mg) 1 tab Q5M PRN SL CHEST PAIN; Start 08/23/16 at 16:30 Docusate Sodium (Colace) 100 mg Q12H PRN PO CONSTIPATION; Start 08/23/16 at 16 :30 Magnesium Hydroxide (Milk Of Mag) 30 ml DAILY PRN PO CONSTIPATION; Start 08/23 at 16:30 Bisacodyl (Dulcolax Supp) 10 mg DAILY PRN [place] CONSTIPATION Last administered on 08/27/16 20:05; Admin Dose 10 MG; Start 08/23/16 at 16:30 Enoxaparin Sodium (Lovenox) 40 mg DAILY SC Last administered on 08/29/16 09: 22; Admin Dose 40 MG; Start 08/24/16 at 09:00 Metoprolol Tartrate (Lopressor) 25 mg BID PO Last administered on 08/29/16 09 :23; Admin Dose 25 MG; Start 08/23/16 at 21:00 Metoprolol Tartrate 5 mg 5 mg Q4H PRN IV HR>110 Hold SBP<100; Start 08/23/16 at 16:30 Potassium Chloride/Sodium Chloride 1,000 ml @ 60 mls/hr [id number] IV Last administered on 08/29/16 06:42; Admin Dose 60 MLS/HR; Start 08/23/16 at 17:00 Cefepime HCl (Maxipime 2gm/50 ml (Pmx)) 50 ml @ 100 mls/hr Q24H IVPB Last administered on 08/28/16at 21:53; Admin Dose 100 MLS/HR; Start 08/23/16 at 21: 00 Famotidine (Pepcid) 20 mg DAILY PO Last administered on 08/29/16 09:22; Admin Dose 20 MG; Start 08/24/16 at 09:00 Calcium/Vitamin D (Oyster Shell/ Vit-D (500/200)) 1 tab BID PO Last administered on 08/29/16at 09:22; Admin Dose 1 TAB; Start 08/23/16 at 21:00 Insulin Detemir (Levemir) 15 unit QHS SC Last administered on 08/28/16at 21:53 ; Admin Dose 15 UNIT; Start 08/23/16 at 21:00 Atorvastatin Calcium (Lipitor) 10 mg DAILY@21 PO Last administered on at 21:40; Admin Dose 10 MG; Start 08/23/16 at 21:00 Guaifenesin/ Codeine Phosphate (Robitussin Ac Liquid Cup) 5 ml Q6 PRN PO COUGH Last administered on 08/26/16at 21:28; Admin Dose 5 ML; Start 08/24/16 at 10:30 Ascorbic Acid (Vitamin C) 500 mg DAILY PO Last administered on 08/29/16at 09:00 ; Admin Dose 500 MG; Start 08/28/16 at 09:00 Diagnostic Test (Pha) (Accucheck) 1 ea 02 XX Last administered on 08/26/16at 02 :56; Admin Dose 1 EA; Start 08/26/16 at 02:00 Miscellaneous Information 1 ea NOTE XX ; Start 08/25/16 at 13:00 Glucose (Glutose) 15 gm Q15M PRN PO DECREASED GLUCOSE; Start 08/25/16 at 13:00 Glucose (Glutose) 22.5 gm Q15M PRN PO DECREASED GLUCOSE; Start 08/25/16 at 13: 00 Dextrose (D50w Syringe) 25 ml Q15M PRN IV DECREASED GLUCOSE; Start 08/25/16 at 13:00 Dextrose (D50w Syringe) 50 ml Q15M PRN IV DECREASED GLUCOSE; Start 08/25/16 at 13:00 Glucagon (Glucagen) 1 mg Q15M PRN IM DECREASED GLUCOSE; Start 08/25/16 at 13: 00 Glucose (Glutose) 15 gm Q15M PRN BUCCAL DECREASED GLUCOSE; Start 08/25/16 at 13:00 Neomycin/ Polymyxin/ Bacitracin (Neosporin Topical Oint) 1 applic TID TOP Last administered on 08/29/16at 12:17; Admin Dose 1 APPLIC; Start 08/26/16 at 23:00 Morphine Sulfate 1 mg 1 mg Q4H PRN IV PAIN LEVEL 7-10; Start 08/26/16 at 23:30 Vancomycin HCl (Vancocin) 250 ml @ 125 mls/hr Q24H IVPB Last administered on 08/29/16at 13:26; Admin Dose 125 MLS/HR; Start 08/28/16 at 13:00 Benazepril HCl (Lotensin) 10 mg DAILY PO Last administered on 08/29/16at 09:23 ; Admin Dose 10 MG; Start 08/29/16 at 09:00 RJ CIFUENTES Aug 29, 2016 18:10
[2016-08-29] MEDS: SENNA TAB PO SCH (21:14)
[2016-08-29] MEDS: SOD CHLORIDE 0.45% 1,000 ML IV SCH (21:14)
[2016-08-29] MEDS: ATORVASTATIN 10 MG TAB PO SCH (21:15)
[2016-08-29] MEDS: CEFEPIME 2GM/50 ML (PMX) 50 ML IVPB SCH (22:23)
[2016-08-29] MEDS: INSULIN DETEMIR [LEVEMIR] 3ML CART SC SCH (22:32)
[2016-08-30] VITALS (11 sets, daily range): BP systolic 126–160; BP diastolic 61–83; PULSE 56–68; RESP 17–20
[2016-08-30] MEDS: ACCUCHECK XX SCH (03:24)
[2016-08-30 07:20] LABS: BASOPHIL # 0.1 10^3/ul (0.0-0.1); BASOPHILS % 0.6 % (0.0-2.0); EOSINOPHILS # 0.3 10^3/ul (0.0-0.5); EOSINOPHILS % 3.5 % (0.0-7.0); HEMOGLOBIN 10.9 g/dl (12.0-16.0); LYMPHOCYTES # 2.6 10^3/ul (0.8-2.9); LYMPHOCYTES % 27.3 % (15.0-51.0); MEAN CORPUSCULAR HGB CONC 33.2 g/dl (32.0-37.0); MEAN CORPUSCULAR VOLUME 93.3 fl (82.0-101.0); MEAN PLATELET VOLUME 7.7 fl (7.4-10.4); MONOCYTE # 0.8 10^3/ul (0.3-0.9); MONOCYTES % 8.1 % (0.0-11.0); NEUTROPHIL # 5.8 10^3/ul (1.6-7.5); NEUTROPHILS % 60.5 % (39.0-77.0); PLATELET COUNT 415 10^3/UL (140-440); RED BLOOD COUNT 3.53 10^6/ul (4.20-5.40); RED CELL DISTRIBUTION WIDTH 13.9 % (11.5-14.5); UNCORRECTED WBC 9.6 10^3/ul (4.8-10.8); WHITE BLOOD COUNT 9.6 10^3/ul (4.8-10.8)
[2016-08-30 07:23] LABS: POTASSIUM 3.9 mmol/L (3.5-5.1)
[2016-08-30 07:25] LABS: CREATININE 0.74 mg/dl (0.44-1.00)
[2016-08-30 07:26] LABS: CALCIUM 9.9 mg/dl (8.4-10.2)
[2016-08-30 07:29] LABS: CONDITION 1
[2016-08-30] MEDS: GLUCOSE GEL 15 GRAM TUBE BUCCAL PRN ×2 (08:00→08:17)
[2016-08-30] MEDS: INSULIN ASPART [NOVOLOG] 3 ML PEN SC SCH ×4 (08:00→20:31)
[2016-08-30] MEDS: ACETAMINOPHEN 500 MG TAB PO PRN (08:09)
[2016-08-30] MEDS: LEVALBUTEROL (NEB) 0.63 MG/3 ML AMP HHN SCH ×2 (08:31→22:04)
[2016-08-30] MEDS: MULTIVITAMINS/MINERALS TAB PO SCH (09:00)
[2016-08-30] MEDS: LIDOCAINE 5% PATCH TD SCH (09:14)
[2016-08-30] MEDS: FENOFIBRATE 145 MG TAB PO SCH (09:14)
[2016-08-30] MEDS: FAMOTIDINE 20 MG TAB PO SCH (09:15)
[2016-08-30] MEDS: CLOPIDOGREL 75 MG TAB PO SCH (09:15)
[2016-08-30] MEDS: METOPROLOL 25 MG TAB PO SCH ×2 (09:15→20:25)
[2016-08-30] MEDS: BENAZEPRIL 10 MG TAB PO SCH (09:15)
[2016-08-30] MEDS: ASPIRIN 81 MG TAB PO SCH (09:15)
[2016-08-30] MEDS: ASCORBIC ACID 500 MG TAB.CHEW PO SCH (09:15)
[2016-08-30] MEDS: ENOXAPARIN 40 MG/0.4 ML SYG SC SCH (09:16)
[2016-08-30] MEDS: CALCIUM/VITAMIN D (500/200) TAB PO SCH ×2 (09:33→20:28)
[2016-08-30] MEDS: NEOMYC/POLYMYX/BACIT 30 GM OINT TOP SCH ×3 (09:47→20:34)
[2016-08-30] MEDS: SOD CHLORIDE 0.45% 1,000 ML IV SCH (12:48)
[2016-08-30] MEDS: VANCOMYCIN 1 GM in NS 250 ML IVPB SCH (13:01)
--- NOTE | 2016-08-30 15:03 | PN ---
Date/Time of Note Date/Time of Note DATE: 08/30/16 TIME: 15:03 Assessment/Plan VTE Prophylaxis VTE Prophylaxis Intervention: other Lines/Catheters IV Catheter Type (from Nrs): Peripheral IV Urinary Cath still in place: Yes Reason Cath still needed: skin wounds contaminated by urine Assessment/Plan Chief Complaint/Hosp Course 1. Healthcare facility acquired pneumonia - IV antibiotics 2. Non-ST elevation myocardial infarction - monitor 3. Hypertension - continue meds 4. Diabetes mellitus - monitor blood sugar Problems: Subjective 24 Hr Interval Summary Free Text/Dictation Patient has no complaints Exam/Review of Systems Vital Signs Vitals Vital Signs Date Time Temp Pulse Resp B/P Pulse Ox O2 Delivery O2 Flow Rate FiO2 08/30/16 12:48 58 08/30/16 12:28 97.5 20 155/64 100 08/30/16 08:32 Nasal Cannula 2.0 Intake and Output 08/29/16 08/29/16 08/30/16 15:00 23:00 07:00 Intake Total 80 ml 120 ml Output Total 700 ml 1200 ml Balance -620 ml -1080 ml Exam Neck: supple Respiratory: diminished breath sounds Cardiovascular: regular rate and rhythm Gastrointestinal: non-tender, soft Results Result Diagram: 08/30/16 0650 08/30/16 0650 Results 24 hrs Laboratory Tests Test 08/29/16 16:50 08/29/16 17:32 08/29/16 22:24 08/30/16 02:40 Bedside Glucose 165 94 70 Anion Gap 11 Basophils # 0.0 Basophils % 0.5 Blood Urea Nitrogen 15 Calcium Level 9.9 Carbon Dioxide Level 32 H Chloride Level 102 Creatinine 0.78 Eosinophils # 0.3 Eosinophils % 3.5 Glucose Level 116 Hematocrit 32.0 L Hemoglobin 10.6 L Lymphocytes # 2.5 Lymphocytes % 26.5 Mean Corpuscular Hemoglobin 30.7 Mean Corpuscular Hemoglobin Concent 33.1 Mean Corpuscular Volume 92.7 Mean Platelet Volume 7.7 Monocytes # 0.9 Monocytes % 10.0 Neutrophils # 5.5 Neutrophils % 59.5 Nucleated Red Blood Cells # 0.0 Nucleated Red Blood Cells % 0.0 Platelet Count 359 Potassium Level 5.1 Red Blood Count 3.45 L Red Cell Distribution Width 14.1 Sodium Level 140 White Blood Count 9.3 Test 08/30/16 06:50 08/30/16 07:31 08/30/16 08:07 08/30/16 08:34 Anion Gap 14 Basophils # 0.1 Basophils % 0.6 Blood Urea Nitrogen 14 Calcium Level 9.9 Carbon Dioxide Level 32 H Chloride Level 102 Creatinine 0.74 Eosinophils # 0.3 Eosinophils % 3.5 Glucose Level 56 #L Hematocrit 33.0 L Hemoglobin 10.9 L Lymphocytes # 2.6 Lymphocytes % 27.3 Mean Corpuscular Hemoglobin 31.0 Mean Corpuscular Hemoglobin Concent 33.2 Mean Corpuscular Volume 93.3 Mean Platelet Volume 7.7 Monocytes # 0.8 Monocytes % 8.1 Neutrophils # 5.8 Neutrophils % 60.5 Nucleated Red Blood Cells # 0.0 Nucleated Red Blood Cells % 0.0 Platelet Count 415 Potassium Level 3.9 Red Blood Count 3.53 L Red Cell Distribution Width 13.9 Sodium Level 144 White Blood Count 9.6 Bedside Glucose 57 L 76 86 Test 08/30/16 11:37 08/30/16 12:10 Bedside Glucose 138 Vancomycin Level Trough 16.5 Medications Medications Current Medications Acetaminophen (Tylenol Tab) 1,000 mg Q4 PRN PO PAIN AND OR ELEVATED TEMP Last administered on 08/30/16 08:09; Admin Dose 1,000 MG; Start 08/23/16 at 16:00 Acetaminophen (Tylenol Tab) 650 mg Q4 PRN PO PAIN AND OR ELEVATED TEMP Last administered on 08/27/16 08:51; Admin Dose 650 MG; Start 08/23/16 at 16:00 Aspirin (Aspirin) 81 mg DAILY PO Last administered on 08/30/16 09:15; Admin Dose 81 MG; Start 08/24/16 at 09:00 Glucose (Glutose) 22.5 gm PRN PO ; Start 08/23/16 at 16:00 Fenofibrate (Tricor) 145 mg QAM PO Last administered on 08/30/16 09:14; Admin Dose 145 MG; Start 08/24/16 at 09:00 Lidocaine (Lidoderm) 1 patch DAILY TD Last administered on 08/30/16 09:14; Admin Dose 1 PATCH; Start 08/24/16 at 09:00 Sodium Biphosphate/ Sodium Phosphate (Fleet Enema) 133 ml DAILY PRN [place] CONSTIPATION Last administered on 08/26/16 18:38; Admin Dose 133 ML; Start at 16:00 Senna (Senokot) 2 tab QHS PO Last administered on 08/29/16 21:14; Admin Dose 2 TAB; Start 08/23/16 at 21:00 Multivitamins/ Minerals (Theragran-M) 1 tab QAM PO Last administered on 09:23; Admin Dose 1 TAB; Start 08/24/16 at 09:00 Ondansetron HCl (Zofran Inj) 4 mg Q6H PRN IV NAUSEA AND/OR VOMITING Last administered on 08/28/16 04:50; Admin Dose 4 MG; Start 08/23/16 at 16:30 Nitroglycerin (Nitroglycerin (Sl Tab) 0.4 Mg) 1 tab Q5M PRN SL CHEST PAIN; Start 08/23/16 at 16:30 Docusate Sodium (Colace) 100 mg Q12H PRN PO CONSTIPATION; Start 08/23/16 at 16 :30 Magnesium Hydroxide (Milk Of Mag) 30 ml DAILY PRN PO CONSTIPATION; Start 08/23 at 16:30 Bisacodyl (Dulcolax Supp) 10 mg DAILY PRN [place] CONSTIPATION Last administered on 08/27/16at 20:05; Admin Dose 10 MG; Start 08/23/16 at 16:30 Enoxaparin Sodium (Lovenox) 40 mg DAILY SC Last administered on 08/30/16 09: 16; Admin Dose 40 MG; Start 08/24/16 at 09:00 Metoprolol Tartrate (Lopressor) 25 mg BID PO Last administered on 08/30/16 09 :15; Admin Dose 25 MG; Start 08/23/16 at 21:00 Metoprolol Tartrate 5 mg 5 mg Q4H PRN IV HR>110 Hold SBP<100; Start 08/23/16 at 16:30 Cefepime HCl (Maxipime 2gm/50 ml (Pmx)) 50 ml @ 100 mls/hr Q24H IVPB Last administered on 08/29/16 22:23; Admin Dose 100 MLS/HR; Start 08/23/16 at 21: 00 Famotidine (Pepcid) 20 mg DAILY PO Last administered on 08/30/16 09:15; Admin Dose 20 MG; Start 08/24/16 at 09:00 Calcium/Vitamin D (Oyster Shell/ Vit-D (500/200)) 1 tab BID PO Last administered on 08/30/16at 09:33; Admin Dose 1 TAB; Start 08/23/16 at 21:00 Insulin Detemir (Levemir) 15 unit QHS SC Last administered on 08/29/16at 22:32 ; Admin Dose 15 UNIT; Start 08/23/16 at 21:00 Atorvastatin Calcium (Lipitor) 10 mg DAILY@21 PO Last administered on at 21:15; Admin Dose 10 MG; Start 08/23/16 at 21:00 Guaifenesin/ Codeine Phosphate (Robitussin Ac Liquid Cup) 5 ml Q6 PRN PO COUGH Last administered on 08/26/16at 21:28; Admin Dose 5 ML; Start 08/24/16 at 10:30 Ascorbic Acid (Vitamin C) 500 mg DAILY PO Last administered on 08/30/16at 09:15 ; Admin Dose 500 MG; Start 08/28/16 at 09:00 Diagnostic Test (Pha) (Accucheck) 1 ea 02 XX Last administered on 08/30/16at 03 :24; Admin Dose 1 EA; Start 08/26/16 at 02:00 Miscellaneous Information 1 ea NOTE XX ; Start 08/25/16 at 13:00 Glucose (Glutose) 15 gm Q15M PRN PO DECREASED GLUCOSE; Start 08/25/16 at 13:00 Glucose (Glutose) 22.5 gm Q15M PRN PO DECREASED GLUCOSE; Start 08/25/16 at 13: 00 Dextrose (D50w Syringe) 25 ml Q15M PRN IV DECREASED GLUCOSE; Start 08/25/16 at 13:00 Dextrose (D50w Syringe) 50 ml Q15M PRN IV DECREASED GLUCOSE; Start 08/25/16 at 13:00 Glucagon (Glucagen) 1 mg Q15M PRN IM DECREASED GLUCOSE; Start 08/25/16 at 13: 00 Glucose (Glutose) 15 gm Q15M PRN BUCCAL DECREASED GLUCOSE Last administered on 08/30/16at 08:17; Admin Dose 15 GM; Start 08/25/16 at 13:00 Neomycin/ Polymyxin/ Bacitracin (Neosporin Topical Oint) 1 applic TID TOP Last administered on 08/30/16at 13:01; Admin Dose 1 APPLIC; Start 08/26/16 at 23:00 Morphine Sulfate (morphine) 1 mg Q4H PRN IV PAIN LEVEL 7-10; Start 08/26/16 at 23:30 Benazepril HCl (Lotensin) 10 mg DAILY PO Last administered on 08/30/16at 09:15 ; Admin Dose 10 MG; Start 08/29/16 at 09:00 Clopidogrel Bisulfate 75 mg 75 mg DAILY PO Last administered on 08/30/16at 09: 15; Admin Dose 75 MG; Start 08/30/16 at 09:00 Sodium Chloride 1,000 ml @ 60 mls/hr [id number] IV Last administered on at 12:48; Admin Dose 60 MLS/HR; Start 08/29/16 at 20:00 Vancomycin HCl/ Sodium Chloride (Vancocin/NS) 150 ml @ 75 mls/hr Q24H IVPB ; Start 08/31/16 at 13:00 NEHA WILSON Aug 30, 2016 15:03
--- NOTE | 2016-08-30 17:59 | CONS ---
Date/Time of Note Date/Time of Note DATE: 08/30/16 TIME: 17:57 Assessment/Plan Assessment/Plan Chief Complaint/Hosp Course IMPRESSION: 1. Positive troponin consistent with non-ST elevation myocardial infarction. Possibly demand event in the setting of tachycardia.-last enzymes downtrending. Conservative management. NO C planned at this time 2. Abnormal electrocardiogram with nonspecific ST and T abnormalities and poor R-wave progression across the anterior precordial leads in the setting of positive troponins. 3. Tachycardia consistent with sinus tachycardia in the setting of volume depletion. 4. Hypertension, reasonable 5. Altered mental state/encephalopathy. 6. Dyslipidemia. 7. Pneumonia by chest x-ray. Possible reason for patient's possible demand ischemia. 8. Diabetes mellitus. 9. Possible urinary tract infection. Recc: -Tele -continue asa/plavix to maximize medical therapy. -Continue BB/ACEI and follow somewhat labile BP -Continue statin -Continue abx's and f/u cx data Problems: Consultation Date/Type/Reason Admit Date/Time Aug 23, 2016 at 09:42 Initial Consult Date 08/27/2016 Type of Consultation: cardiology Reason for Consultation Nstemi Referring Provider: VALENTIN RHOADES MD Exam/Review of Systems Vital Signs Vitals Vital Signs Date Time Temp Pulse Resp B/P Pulse Ox O2 Delivery O2 Flow Rate FiO2 08/30/16 16:24 97.6 58 19 126/83 97 08/30/16 08:32 Nasal Cannula 2.0 Intake and Output 08/29/16 08/29/16 08/30/16 15:00 23:00 07:00 Intake Total 80 ml 120 ml Output Total 700 ml 1200 ml Balance -620 ml -1080 ml Exam Review of Systems: CONSTITUTIONAL: No fevers, chills. PULMONARY: No sob CARDIOVASCULAR: No chest pain/palpitations GASTROINTESTINAL: No nausea/vomiting. GENITOURINARY: No hematuria/dysuria. MUSCULOSKELETAL: No myagias/arthalgias. PSYCHIATRIC: The patient denies depression. NEUROLOGIC: encephalopathy Constitutional: alert, other (non-communicative) Head: normocephalic ENMT: mucosa pink and moist Neck: jvd (8 cm water), supple Respiratory: diminished breath sounds (at bases/B) Cardiovascular: regular rate and rhythm Gastrointestinal: non-tender, soft Musculoskeletal: muscle tone (normal) Extremities: edema (none) Neurological: lethargic Results Result Diagram: 08/30/16 0650 08/30/16 0650 Results 24 hrs Laboratory Tests Test 08/29/16 22:24 08/30/16 02:40 08/30/16 06:50 08/30/16 07:31 Bedside Glucose 94 70 57 L Anion Gap 14 Basophils # 0.1 Basophils % 0.6 Blood Urea Nitrogen 14 Calcium Level 9.9 Carbon Dioxide Level 32 H Chloride Level 102 Creatinine 0.74 Eosinophils # 0.3 Eosinophils % 3.5 Glucose Level 56 #L Hematocrit 33.0 L Hemoglobin 10.9 L Lymphocytes # 2.6 Lymphocytes % 27.3 Mean Corpuscular Hemoglobin 31.0 Mean Corpuscular Hemoglobin Concent 33.2 Mean Corpuscular Volume 93.3 Mean Platelet Volume 7.7 Monocytes # 0.8 Monocytes % 8.1 Neutrophils # 5.8 Neutrophils % 60.5 Nucleated Red Blood Cells # 0.0 Nucleated Red Blood Cells % 0.0 Platelet Count 415 Potassium Level 3.9 Red Blood Count 3.53 L Red Cell Distribution Width 13.9 Sodium Level 144 White Blood Count 9.6 Test 08/30/16 08:07 08/30/16 08:34 08/30/16 11:37 08/30/16 12:10 Bedside Glucose 76 86 138 Vancomycin Level Trough 16.5 Test 08/30/16 17:04 Bedside Glucose 99 Medications Medications Current Medications Acetaminophen (Tylenol Tab) 1,000 mg Q4 PRN PO PAIN AND OR ELEVATED TEMP Last administered on 08/30/16at 08:09; Admin Dose 1,000 MG; Start 08/23/16 at 16:00 Acetaminophen (Tylenol Tab) 650 mg Q4 PRN PO PAIN AND OR ELEVATED TEMP Last administered on 08/27/16at 08:51; Admin Dose 650 MG; Start 08/23/16 at 16:00 Aspirin (Aspirin) 81 mg DAILY PO Last administered on 08/30/16at 09:15; Admin Dose 81 MG; Start 08/24/16 at 09:00 Glucose (Glutose) 22.5 gm PRN PO ; Start 08/23/16 at 16:00 Fenofibrate (Tricor) 145 mg QAM PO Last administered on 08/30/16at 09:14; Admin Dose 145 MG; Start 08/24/16 at 09:00 Lidocaine (Lidoderm) 1 patch DAILY TD Last administered on 08/30/16 09:14; Admin Dose 1 PATCH; Start 08/24/16 at 09:00 Sodium Biphosphate/ Sodium Phosphate (Fleet Enema) 133 ml DAILY PRN [place] CONSTIPATION Last administered on 08/26/16 18:38; Admin Dose 133 ML; Start at 16:00 Senna (Senokot) 2 tab QHS PO Last administered on 08/29/16 21:14; Admin Dose 2 TAB; Start 08/23/16 at 21:00 Multivitamins/ Minerals (Theragran-M) 1 tab QAM PO Last administered on 09:23; Admin Dose 1 TAB; Start 08/24/16 at 09:00 Ondansetron HCl (Zofran Inj) 4 mg Q6H PRN IV NAUSEA AND/OR VOMITING Last administered on 08/28/16 04:50; Admin Dose 4 MG; Start 08/23/16 at 16:30 Nitroglycerin (Nitroglycerin (Sl Tab) 0.4 Mg) 1 tab Q5M PRN SL CHEST PAIN; Start 08/23/16 at 16:30 Docusate Sodium (Colace) 100 mg Q12H PRN PO CONSTIPATION; Start 08/23/16 at 16 :30 Magnesium Hydroxide (Milk Of Mag) 30 ml DAILY PRN PO CONSTIPATION; Start 08/23 at 16:30 Bisacodyl (Dulcolax Supp) 10 mg DAILY PRN [place] CONSTIPATION Last administered on 08/27/16 20:05; Admin Dose 10 MG; Start 08/23/16 at 16:30 Enoxaparin Sodium (Lovenox) 40 mg DAILY SC Last administered on 08/30/16 09: 16; Admin Dose 40 MG; Start 08/24/16 at 09:00 Metoprolol Tartrate (Lopressor) 25 mg BID PO Last administered on 08/30/16 09 :15; Admin Dose 25 MG; Start 08/23/16 at 21:00 Metoprolol Tartrate 5 mg 5 mg Q4H PRN IV HR>110 Hold SBP<100; Start 08/23/16 at 16:30 Cefepime HCl (Maxipime 2gm/50 ml (Pmx)) 50 ml @ 100 mls/hr Q24H IVPB Last administered on 08/29/16 22:23; Admin Dose 100 MLS/HR; Start 08/23/16 at 21: 00 Famotidine (Pepcid) 20 mg DAILY PO Last administered on 08/30/16at 09:15; Admin Dose 20 MG; Start 08/24/16 at 09:00 Calcium/Vitamin D (Oyster Shell/ Vit-D (500/200)) 1 tab BID PO Last administered on 08/30/16 09:33; Admin Dose 1 TAB; Start 08/23/16 at 21:00 Insulin Detemir (Levemir) 15 unit QHS SC Last administered on 08/29/16at 22:32 ; Admin Dose 15 UNIT; Start 08/23/16 at 21:00 Atorvastatin Calcium (Lipitor) 10 mg DAILY@21 PO Last administered on at 21:15; Admin Dose 10 MG; Start 08/23/16 at 21:00 Guaifenesin/ Codeine Phosphate (Robitussin Ac Liquid Cup) 5 ml Q6 PRN PO COUGH Last administered on 08/26/16at 21:28; Admin Dose 5 ML; Start 08/24/16 at 10:30 Ascorbic Acid (Vitamin C) 500 mg DAILY PO Last administered on 08/30/16at 09:15 ; Admin Dose 500 MG; Start 08/28/16 at 09:00 Diagnostic Test (Pha) (Accucheck) 1 ea 02 XX Last administered on 08/30/16at 03 :24; Admin Dose 1 EA; Start 08/26/16 at 02:00 Miscellaneous Information 1 ea NOTE XX ; Start 08/25/16 at 13:00 Glucose (Glutose) 15 gm Q15M PRN PO DECREASED GLUCOSE; Start 08/25/16 at 13:00 Glucose (Glutose) 22.5 gm Q15M PRN PO DECREASED GLUCOSE; Start 08/25/16 at 13: 00 Dextrose (D50w Syringe) 25 ml Q15M PRN IV DECREASED GLUCOSE; Start 08/25/16 at 13:00 Dextrose (D50w Syringe) 50 ml Q15M PRN IV DECREASED GLUCOSE; Start 08/25/16 at 13:00 Glucagon (Glucagen) 1 mg Q15M PRN IM DECREASED GLUCOSE; Start 08/25/16 at 13: 00 Glucose (Glutose) 15 gm Q15M PRN BUCCAL DECREASED GLUCOSE Last administered on 08/30/16 08:17; Admin Dose 15 GM; Start 08/25/16 at 13:00 Neomycin/ Polymyxin/ Bacitracin (Neosporin Topical Oint) 1 applic TID TOP Last administered on 08/30/16 13:01; Admin Dose 1 APPLIC; Start 08/26/16 at 23:00 Morphine Sulfate (morphine) 1 mg Q4H PRN IV PAIN LEVEL 7-10; Start 08/26/16 at 23:30 Benazepril HCl (Lotensin) 10 mg DAILY PO Last administered on 08/30/16 09:15 ; Admin Dose 10 MG; Start 08/29/16 at 09:00 Clopidogrel Bisulfate 75 mg 75 mg DAILY PO Last administered on 08/30/16at 09: 15; Admin Dose 75 MG; Start 08/30/16 at 09:00 Sodium Chloride 1,000 ml @ 60 mls/hr [id number] IV Last administered on at 12:48; Admin Dose 60 MLS/HR; Start 08/29/16 at 20:00 Vancomycin HCl/ Sodium Chloride (Vancocin/NS) 150 ml @ 75 mls/hr Q24H IVPB ; Start 08/31/16 at 13:00 RJ CIFUENTES Aug 30, 2016 17:59
[2016-08-30] MEDS: SENNA TAB PO SCH (20:25)
[2016-08-30] MEDS: ATORVASTATIN 10 MG TAB PO SCH (20:25)
[2016-08-30] MEDS: CEFEPIME 2GM/50 ML (PMX) 50 ML IVPB SCH (20:28)
[2016-08-30] MEDS: INSULIN DETEMIR [LEVEMIR] 3ML CART SC SCH (20:36)
[2016-08-30] MEDS: BISACODYL 10 MG SUPP PR PRN (21:49)
[2016-08-30] MEDS: ACETAMINOPHEN 325 MG TAB PO PRN (21:50)
[2016-08-31] VITALS (11 sets, daily range): BP systolic 123–172; BP diastolic 51–84; PULSE 56–70; RESP 15–58
[2016-08-31] MEDS: ACCUCHECK XX SCH (02:00)
[2016-08-31] MEDS: SOD CHLORIDE 0.45% 1,000 ML IV SCH ×2 (05:20→17:26)
[2016-08-31] MEDS: ACETAMINOPHEN 325 MG TAB PO PRN (06:09)
[2016-08-31 06:30] LABS: BASOPHILS % 0.2 % (0.0-2.0); EOSINOPHILS # 0.3 10^3/ul (0.0-0.5); EOSINOPHILS % 3.5 % (0.0-7.0); HEMATOCRIT 31.8 % (37.0-47.0); HEMOGLOBIN 10.5 g/dl (12.0-16.0); LYMPHOCYTES # 2.4 10^3/ul (0.8-2.9); MEAN CORPUSCULAR HEMOGLOBIN 30.8 pg (29.0-33.0); MEAN CORPUSCULAR VOLUME 93.5 fl (82.0-101.0); MEAN PLATELET VOLUME 7.6 fl (7.4-10.4); MONOCYTE # 0.8 10^3/ul (0.3-0.9); MONOCYTES % 8.9 % (0.0-11.0); NEUTROPHIL # 5.1 10^3/ul (1.6-7.5); NEUTROPHILS % 59.4 % (39.0-77.0); PLATELET COUNT 353 10^3/UL (140-440); RED BLOOD COUNT 3.41 10^6/ul (4.20-5.40); RED CELL DISTRIBUTION WIDTH 13.9 % (11.5-14.5); UNCORRECTED WBC 8.5 10^3/ul (4.8-10.8); WHITE BLOOD COUNT 8.5 10^3/ul (4.8-10.8)
[2016-08-31 06:34] LABS: CONDITION 1
[2016-08-31 06:49] LABS: POTASSIUM 3.9 mmol/L (3.5-5.1)
[2016-08-31 06:52] LABS: CREATININE 0.71 mg/dl (0.44-1.00)
[2016-08-31 06:53] LABS: CALCIUM 9.8 mg/dl (8.4-10.2)
[2016-08-31] MEDS: LIDOCAINE 5% PATCH TD SCH (07:50)
[2016-08-31] MEDS: INSULIN ASPART [NOVOLOG] 3 ML PEN SC SCH ×4 (08:00→21:00)
[2016-08-31] MEDS: FAMOTIDINE 20 MG TAB PO SCH (08:38)
[2016-08-31] MEDS: ASPIRIN 81 MG TAB PO SCH (08:38)
[2016-08-31] MEDS: CALCIUM/VITAMIN D (500/200) TAB PO SCH ×2 (08:38→20:59)
[2016-08-31] MEDS: CLOPIDOGREL 75 MG TAB PO SCH (08:38)
[2016-08-31] MEDS: ASCORBIC ACID 500 MG TAB.CHEW PO SCH (08:38)
[2016-08-31] MEDS: MULTIVITAMINS/MINERALS TAB PO SCH (08:38)
[2016-08-31] MEDS: METOPROLOL 25 MG TAB PO SCH ×2 (08:39→20:59)
[2016-08-31] MEDS: BENAZEPRIL 10 MG TAB PO SCH (08:39)
[2016-08-31] MEDS: FENOFIBRATE 145 MG TAB PO SCH (08:39)
[2016-08-31] MEDS: ENOXAPARIN 40 MG/0.4 ML SYG SC SCH (08:50)
[2016-08-31] MEDS: LEVALBUTEROL (NEB) 0.63 MG/3 ML AMP HHN SCH ×2 (09:21→19:53)
[2016-08-31] MEDS: NEOMYC/POLYMYX/BACIT 30 GM OINT TOP SCH ×3 (09:49→21:00)
--- NOTE | 2016-08-31 10:30 | PN ---
Date/Time of Note Date/Time of Note DATE: 08/31/16 TIME: 10:30 Assessment/Plan VTE Prophylaxis VTE Prophylaxis Intervention: LMWH Lines/Catheters IV C[facility]ter Type [facility]from [facility] Urinary Cath still in place: Yes Reason Cath still needed: skin wounds contaminated by urine Assessment/Plan Chief Complaint/Hosp Course 1. Healthcare facility acquired pneumonia - IV antibiotics 2. Non-ST elevation myocardial infarction - monitor 3. Hypertension - continue meds 4. Diabetes mellitus - monitor blood sugar Problems: Subjective 24 Hr Interval Summary Free Text/Dictation Patient is comfortable, not verbally responsive Exam/Review of Systems Vital Signs Vitals Vital Signs Date Time Temp Pulse Resp B/P Pulse Ox O2 Delivery O2 Flow Rate FiO2 08/31/16 09:22 97 2.0 08/31/16 09:22 60 18 Nasal Cannula 08/31/16 07:43 98.6 172/84 Intake and Output 08/30/16 08/30/16 08/31/16 15:00 23:00 07:00 Intake Total 600 ml 120 ml Output Total 600 ml 550 ml Balance 0 ml -430 ml Exam Constitutional: well developed Head: atraumatic, normocephalic Neck: supple Respiratory: diminished breath sounds Cardiovascular: regular rate and rhythm Gastrointestinal: non-tender, soft Extremities: normal pulses Results Result Diagram: 08/31/16 0550 08/31/16 0550 Results 24 hrs Laboratory Tests Test 08/30/16 11:37 08/30/16 12:10 08/30/16 17:04 08/30/16 20:30 Bedside Glucose 138 99 82 Vancomycin Level Trough 16.5 Test 08/31/16 02:55 08/31/16 05:50 08/31/16 07:53 Bedside Glucose 99 116 Anion Gap 10 Basophils # 0.0 Basophils % 0.2 Blood Urea Nitrogen 15 Calcium Level 9.8 Carbon Dioxide Level 28 Chloride Level 106 Creatinine 0.71 Eosinophils # 0.3 Eosinophils % 3.5 Glucose Level 77 Hematocrit 31.8 L Hemoglobin 10.5 L Lymphocytes # 2.4 Lymphocytes % 28.0 Mean Corpuscular Hemoglobin 30.8 Mean Corpuscular Hemoglobin Concent 33.0 Mean Corpuscular Volume 93.5 Mean Platelet Volume 7.6 Monocytes # 0.8 Monocytes % 8.9 Neutrophils # 5.1 Neutrophils % 59.4 Nucleated Red Blood Cells # 0.0 Nucleated Red Blood Cells % 0.0 Platelet Count 353 Potassium Level 3.9 Red Blood Count 3.41 L Red Cell Distribution Width 13.9 Sodium Level 140 White Blood Count 8.5 Medications Medications Current Medications Acetaminophen (Tylenol Tab) 1,000 mg Q4 PRN PO PAIN AND OR ELEVATED TEMP Last administered on 08/30/16 08:09; Admin Dose 1,000 MG; Start 08/23/16 at 16:00 Acetaminophen (Tylenol Tab) 650 mg Q4 PRN PO PAIN AND OR ELEVATED TEMP Last administered on 08/31/16 06:09; Admin Dose 650 MG; Start 08/23/16 at 16:00 Aspirin (Aspirin) 81 mg DAILY PO Last administered on 08/31/16 08:38; Admin Dose 81 MG; Start 08/24/16 at 09:00 Glucose (Glutose) 22.5 gm PRN PO ; Start 08/23/16 at 16:00 Fenofibrate (Tricor) 145 mg QAM PO Last administered on 08/31/16 08:39; Admin Dose 145 MG; Start 08/24/16 at 09:00 Lidocaine (Lidoderm) 1 patch DAILY TD Last administered on 08/31/16 07:50; Admin Dose 1 PATCH; Start 08/24/16 at 09:00 Sodium Biphosphate/ Sodium Phosphate (Fleet Enema) 133 ml DAILY PRN [place] CONSTIPATION Last administered on 08/26/16 18:38; Admin Dose 133 ML; Start at 16:00 Senna (Senokot) 2 tab QHS PO Last administered on 08/30/16 20:25; Admin Dose 2 TAB; Start 08/23/16 at 21:00 Multivitamins/ Minerals (Theragran-M) 1 tab QAM PO Last administered on 08:38; Admin Dose 1 TAB; Start 08/24/16 at 09:00 Ondansetron HCl (Zofran Inj) 4 mg Q6H PRN IV NAUSEA AND/OR VOMITING Last administered on 08/28/16 04:50; Admin Dose 4 MG; Start 08/23/16 at 16:30 Nitroglycerin (Nitroglycerin (Sl Tab) 0.4 Mg) 1 tab Q5M PRN SL CHEST PAIN; Start 08/23/16 at 16:30 Docusate Sodium (Colace) 100 mg Q12H PRN PO CONSTIPATION; Start 08/23/16 at 16 :30 Magnesium Hydroxide (Milk Of Mag) 30 ml DAILY PRN PO CONSTIPATION; Start 08/23 at 16:30 Bisacodyl (Dulcolax Supp) 10 mg DAILY PRN [place] CONSTIPATION Last administered on 08/30/16at 21:49; Admin Dose 10 MG; Start 08/23/16 at 16:30 Enoxaparin Sodium (Lovenox) 40 mg DAILY SC Last administered on 08/31/16 08: 50; Admin Dose 40 MG; Start 08/24/16 at 09:00 Metoprolol Tartrate (Lopressor) 25 mg BID PO Last administered on 08/31/16 08 :39; Admin Dose 25 MG; Start 08/23/16 at 21:00 Metoprolol Tartrate 5 mg 5 mg Q4H PRN IV HR>110 Hold SBP<100; Start 08/23/16 at 16:30 Cefepime HCl (Maxipime 2gm/50 ml (Pmx)) 50 ml @ 100 mls/hr Q24H IVPB Last administered on 08/30/16 20:28; Admin Dose 100 MLS/HR; Start 08/23/16 at 21: 00 Famotidine (Pepcid) 20 mg DAILY PO Last administered on 08/31/16 08:38; Admin Dose 20 MG; Start 08/24/16 at 09:00 Calcium/Vitamin D (Oyster Shell/ Vit-D (500/200)) 1 tab BID PO Last administered on 08/31/16 08:38; Admin Dose 1 TAB; Start 08/23/16 at 21:00 Insulin Detemir (Levemir) 15 unit QHS SC Last administered on 08/30/16 20:36 ; Admin Dose 7 UNIT; Start 08/23/16 at 21:00 Atorvastatin Calcium (Lipitor) 10 mg DAILY@21 PO Last administered on 20:25; Admin Dose 10 MG; Start 08/23/16 at 21:00 Guaifenesin/ Codeine Phosphate (Robitussin Ac Liquid Cup) 5 ml Q6 PRN PO COUGH Last administered on 08/26/16 21:28; Admin Dose 5 ML; Start 08/24/16 at 10:30 Ascorbic Acid (Vitamin C) 500 mg DAILY PO Last administered on 08/31/16at 08:38 ; Admin Dose 500 MG; Start 08/28/16 at 09:00 Diagnostic Test (Pha) (Accucheck) 1 ea 02 XX Last administered on 08/31/16at 02 :00; Admin Dose 1 EA; Start 08/26/16 at 02:00 Miscellaneous Information 1 ea NOTE XX ; Start 08/25/16 at 13:00 Glucose (Glutose) 15 gm Q15M PRN PO DECREASED GLUCOSE; Start 08/25/16 at 13:00 Glucose (Glutose) 22.5 gm Q15M PRN PO DECREASED GLUCOSE; Start 08/25/16 at 13: 00 Dextrose (D50w Syringe) 25 ml Q15M PRN IV DECREASED GLUCOSE; Start 08/25/16 at 13:00 Dextrose (D50w Syringe) 50 ml Q15M PRN IV DECREASED GLUCOSE; Start 08/25/16 at 13:00 Glucagon (Glucagen) 1 mg Q15M PRN IM DECREASED GLUCOSE; Start 08/25/16 at 13: 00 Glucose (Glutose) 15 gm Q15M PRN BUCCAL DECREASED GLUCOSE Last administered on 08/30/16at 08:17; Admin Dose 15 GM; Start 08/25/16 at 13:00 Neomycin/ Polymyxin/ Bacitracin (Neosporin Topical Oint) 1 applic TID TOP Last administered on 08/31/16at 09:49; Admin Dose 1 APPLIC; Start 08/26/16 at 23:00 Morphine Sulfate (morphine) 1 mg Q4H PRN IV PAIN LEVEL 7-10; Start 08/26/16 at 23:30 Benazepril HCl (Lotensin) 10 mg DAILY PO Last administered on 08/31/16at 08:39 ; Admin Dose 10 MG; Start 08/29/16 at 09:00 Clopidogrel Bisulfate 75 mg 75 mg DAILY PO Last administered on 08/31/16at 08: 38; Admin Dose 75 MG; Start 08/30/16 at 09:00 Sodium Chloride 1,000 ml @ 60 mls/hr [id number] IV Last administered on at 12:48; Admin Dose 60 MLS/HR; Start 08/29/16 at 20:00 Vancomycin HCl/ Sodium Chloride (Vancocin/NS) 150 ml @ 75 mls/hr Q24H IVPB ; Start 08/31/16 at 13:00 NEHA WILSON Aug 31, 2016 10:30
[2016-08-31] MEDS: VANCOMYCIN 750 MG in SOD CHLORIDE 0.9% 150 ML IVPB SCH (12:13)
--- NOTE | 2016-08-31 12:21 | CONS ---
Date/Time of Note Date/Time of Note DATE: 08/31/16 TIME: 12:19 Assessment/Plan Assessment/Plan Chief Complaint/Hosp Course IMPRESSION: 1. Positive troponin consistent with non-ST elevation myocardial infarction. Possibly demand event in the setting of tachycardia.-last enzymes downtrending. Conservative management. NO [facility] planned at this time 2. Abnormal electrocardiogram with nonspecific ST and T abnormalities and poor R-wave progression across the anterior precordial leads in the setting of positive troponins. 3. Tachycardia consistent with sinus tachycardia in the setting of volume depletion. 4. Hypertension, reasonable 5. Altered mental state/encephalopathy. 6. Dyslipidemia. 7. Pneumonia by chest x-ray. Possible reason for patient's possible demand ischemia. 8. Diabetes mellitus. 9. Possible urinary tract infection. Recc: -Tele -continue asa/plavix to maximize medical therapy. -Continue BB/ACEI and follow somewhat labile BP-? component of pain or anxiety -Continue statin -Continue abx's and f/u cx data Problems: Consultation Date/Type/Reason Admit Date/Time Aug 23, 2016 at 09:42 Initial Consult Date 08/27/2016 Type of Consultation: cardiology Reason for Consultation Nstemi Referring Provider: VALENTIN RHOADES MD Exam/Review of Systems Vital Signs Vitals Vital Signs Date Time Temp Pulse Resp B/P Pulse Ox O2 Delivery O2 Flow Rate FiO2 08/31/16 12:02 56 08/31/16 11:30 98.0 18 123/51 99 08/31/16 10:25 Nasal Cannula 2.0 Intake and Output 08/30/16 08/30/16 08/31/16 15:00 23:00 07:00 Intake Total 600 ml 120 ml Output Total 600 ml 550 ml Balance 0 ml -430 ml Exam Review of Systems: CONSTITUTIONAL: No fevers, chills. PULMONARY: No sob CARDIOVASCULAR: No chest pain/palpitations GASTROINTESTINAL: No nausea/vomiting. GENITOURINARY: No hematuria/dysuria. MUSCULOSKELETAL: No myagias/arthalgias. PSYCHIATRIC: The patient denies depression. NEUROLOGIC: lethargic Constitutional: alert Psych: no complaints Head: normocephalic ENMT: mucosa pink and moist Neck: jvd (8 cm water), supple Respiratory: diminished breath sounds (at bases/B) Cardiovascular: regular rate and rhythm Gastrointestinal: non-tender, soft Musculoskeletal: muscle tone (normal) Extremities: edema (none) Neurological: lethargic Results Result Diagram: 08/31/16 0550 08/31/16 0550 Results 24 hrs Laboratory Tests Test 08/30/16 17:04 08/30/16 20:30 08/31/16 02:55 08/31/16 05:50 Bedside Glucose 99 82 99 Anion Gap 10 Basophils # 0.0 Basophils % 0.2 Blood Urea Nitrogen 15 Calcium Level 9.8 Carbon Dioxide Level 28 Chloride Level 106 Creatinine 0.71 Eosinophils # 0.3 Eosinophils % 3.5 Glucose Level 77 Hematocrit 31.8 L Hemoglobin 10.5 L Lymphocytes # 2.4 Lymphocytes % 28.0 Mean Corpuscular Hemoglobin 30.8 Mean Corpuscular Hemoglobin Concent 33.0 Mean Corpuscular Volume 93.5 Mean Platelet Volume 7.6 Monocytes # 0.8 Monocytes % 8.9 Neutrophils # 5.1 Neutrophils % 59.4 Nucleated Red Blood Cells # 0.0 Nucleated Red Blood Cells % 0.0 Platelet Count 353 Potassium Level 3.9 Red Blood Count 3.41 L Red Cell Distribution Width 13.9 Sodium Level 140 White Blood Count 8.5 Test 08/31/16 07:53 08/31/16 11:20 Bedside Glucose 116 175 Medications Medications Current Medications Acetaminophen (Tylenol Tab) 1,000 mg Q4 PRN PO PAIN AND OR ELEVATED TEMP Last administered on 08/30/16at 08:09; Admin Dose 1,000 MG; Start 08/23/16 at 16:00 Acetaminophen (Tylenol Tab) 650 mg Q4 PRN PO PAIN AND OR ELEVATED TEMP Last administered on 08/31/16at 06:09; Admin Dose 650 MG; Start 08/23/16 at 16:00 Aspirin (Aspirin) 81 mg DAILY PO Last administered on 08/31/16at 08:38; Admin Dose 81 MG; Start 08/24/16 at 09:00 Glucose (Glutose) 22.5 gm PRN PO ; Start 08/23/16 at 16:00 Fenofibrate (Tricor) 145 mg QAM PO Last administered on 08/31/16at 08:39; Admin Dose 145 MG; Start 08/24/16 at 09:00 Lidocaine (Lidoderm) 1 patch DAILY TD Last administered on 08/31/16at 07:50; Admin Dose 1 PATCH; Start 08/24/16 at 09:00 Sodium Biphosphate/ Sodium Phosphate (Fleet Enema) 133 ml DAILY PRN [place] CONSTIPATION Last administered on 08/26/16 18:38; Admin Dose 133 ML; Start at 16:00 Senna (Senokot) 2 tab QHS PO Last administered on 08/30/16 20:25; Admin Dose 2 TAB; Start 08/23/16 at 21:00 Multivitamins/ Minerals (Theragran-M) 1 tab QAM PO Last administered on 08:38; Admin Dose 1 TAB; Start 08/24/16 at 09:00 Ondansetron HCl (Zofran Inj) 4 mg Q6H PRN IV NAUSEA AND/OR VOMITING Last administered on 08/28/16 04:50; Admin Dose 4 MG; Start 08/23/16 at 16:30 Nitroglycerin (Nitroglycerin (Sl Tab) 0.4 Mg) 1 tab Q5M PRN SL CHEST PAIN; Start 08/23/16 at 16:30 Docusate Sodium (Colace) 100 mg Q12H PRN PO CONSTIPATION; Start 08/23/16 at 16 :30 Magnesium Hydroxide (Milk Of Mag) 30 ml DAILY PRN PO CONSTIPATION; Start 08/23 at 16:30 Bisacodyl (Dulcolax Supp) 10 mg DAILY PRN [place] CONSTIPATION Last administered on 08/30/16 21:49; Admin Dose 10 MG; Start 08/23/16 at 16:30 Enoxaparin Sodium (Lovenox) 40 mg DAILY SC Last administered on 08/31/16 08: 50; Admin Dose 40 MG; Start 08/24/16 at 09:00 Metoprolol Tartrate (Lopressor) 25 mg BID PO Last administered on 08/31/16 08 :39; Admin Dose 25 MG; Start 08/23/16 at 21:00 Metoprolol Tartrate 5 mg 5 mg Q4H PRN IV HR>110 Hold SBP<100; Start 08/23/16 at 16:30 Cefepime HCl (Maxipime 2gm/50 ml (Pmx)) 50 ml @ 100 mls/hr Q24H IVPB Last administered on 08/30/16 20:28; Admin Dose 100 MLS/HR; Start 08/23/16 at 21: 00 Famotidine (Pepcid) 20 mg DAILY PO Last administered on 08/31/16at 08:38; Admin Dose 20 MG; Start 08/24/16 at 09:00 Calcium/Vitamin D (Oyster Shell/ Vit-D (500/200)) 1 tab BID PO Last administered on 08/31/16at 08:38; Admin Dose 1 TAB; Start 08/23/16 at 21:00 Insulin Detemir (Levemir) 15 unit QHS SC Last administered on 08/30/16at 20:36 ; Admin Dose 7 UNIT; Start 08/23/16 at 21:00 Atorvastatin Calcium (Lipitor) 10 mg DAILY@21 PO Last administered on at 20:25; Admin Dose 10 MG; Start 08/23/16 at 21:00 Guaifenesin/ Codeine Phosphate (Robitussin Ac Liquid Cup) 5 ml Q6 PRN PO COUGH Last administered on 08/26/16at 21:28; Admin Dose 5 ML; Start 08/24/16 at 10:30 Ascorbic Acid (Vitamin C) 500 mg DAILY PO Last administered on 08/31/16at 08:38 ; Admin Dose 500 MG; Start 08/28/16 at 09:00 Diagnostic Test (Pha) (Accucheck) 1 ea 02 XX Last administered on 08/31/16at 02 :00; Admin Dose 1 EA; Start 08/26/16 at 02:00 Miscellaneous Information 1 ea NOTE XX ; Start 08/25/16 at 13:00 Glucose (Glutose) 15 gm Q15M PRN PO DECREASED GLUCOSE; Start 08/25/16 at 13:00 Glucose (Glutose) 22.5 gm Q15M PRN PO DECREASED GLUCOSE; Start 08/25/16 at 13: 00 Dextrose (D50w Syringe) 25 ml Q15M PRN IV DECREASED GLUCOSE; Start 08/25/16 at 13:00 Dextrose (D50w Syringe) 50 ml Q15M PRN IV DECREASED GLUCOSE; Start 08/25/16 at 13:00 Glucagon (Glucagen) 1 mg Q15M PRN IM DECREASED GLUCOSE; Start 08/25/16 at 13: 00 Glucose (Glutose) 15 gm Q15M PRN BUCCAL DECREASED GLUCOSE Last administered on 08/30/16at 08:17; Admin Dose 15 GM; Start 08/25/16 at 13:00 Neomycin/ Polymyxin/ Bacitracin (Neosporin Topical Oint) 1 applic TID TOP Last administered on 08/31/16at 09:49; Admin Dose 1 APPLIC; Start 08/26/16 at 23:00 Morphine Sulfate (morphine) 1 mg Q4H PRN IV PAIN LEVEL 7-10; Start 08/26/16 at 23:30 Benazepril HCl (Lotensin) 10 mg DAILY PO Last administered on 08/31/16at 08:39 ; Admin Dose 10 MG; Start 08/29/16 at 09:00 Clopidogrel Bisulfate 75 mg 75 mg DAILY PO Last administered on 08/31/16at 08: 38; Admin Dose 75 MG; Start 08/30/16 at 09:00 Sodium Chloride 1,000 ml @ 60 mls/hr [id number] IV Last administered on at 12:48; Admin Dose 60 MLS/HR; Start 08/29/16 at 20:00 Vancomycin HCl/ Sodium Chloride (Vancocin/NS) 150 ml @ 75 mls/hr Q24H IVPB Last administered on 08/31/16at 12:13; Admin Dose 75 MLS/HR; Start 08/31/16 at 13:00 RJ CIFUENTES Aug 31, 2016 12:21
[2016-08-31] MEDS: ATORVASTATIN 10 MG TAB PO SCH (20:58)
[2016-08-31] MEDS: CEFEPIME 2GM/50 ML (PMX) 50 ML IVPB SCH (20:58)
[2016-08-31] MEDS: SENNA TAB PO SCH (20:59)
[2016-08-31] MEDS: INSULIN DETEMIR [LEVEMIR] 3ML CART SC SCH (21:11)
[2016-09-01] VITALS (12 sets, daily range): BP systolic 123–140; BP diastolic 55–64; PULSE 57–64; RESP 16–18
[2016-09-01] MEDS: ACCUCHECK XX SCH (02:27)
[2016-09-01] MEDS: LIDOCAINE 5% PATCH TD SCH ×2 (05:24→09:00)
[2016-09-01] MEDS: ACETAMINOPHEN 325 MG TAB PO PRN ×2 (05:24→18:57)
[2016-09-01] MEDS ORDERED: LIDOCAINE 5% PATCH TD SCH (08:00)
[2016-09-01] MEDS: INSULIN ASPART [NOVOLOG] 3 ML PEN SC SCH ×4 (08:00→21:00)
[2016-09-01] MEDS: LEVALBUTEROL (NEB) 0.63 MG/3 ML AMP HHN SCH ×2 (08:16→19:31)
[2016-09-01] MEDS: FENOFIBRATE 145 MG TAB PO SCH (08:45)
[2016-09-01] MEDS: CLOPIDOGREL 75 MG TAB PO SCH (08:45)
[2016-09-01] MEDS: FAMOTIDINE 20 MG TAB PO SCH (08:45)
[2016-09-01] MEDS: ASCORBIC ACID 500 MG TAB.CHEW PO SCH (08:45)
[2016-09-01] MEDS: MULTIVITAMINS/MINERALS TAB PO SCH (08:45)
[2016-09-01] MEDS: CALCIUM/VITAMIN D (500/200) TAB PO SCH ×2 (08:45→21:06)
[2016-09-01] MEDS: ASPIRIN 81 MG TAB PO SCH (08:45)
[2016-09-01] MEDS: BENAZEPRIL 10 MG TAB PO SCH (08:46)
[2016-09-01] MEDS: METOPROLOL 25 MG TAB PO SCH ×2 (08:47→21:06)
[2016-09-01] MEDS: NEOMYC/POLYMYX/BACIT 30 GM OINT TOP SCH ×3 (08:48→21:21)
[2016-09-01] MEDS: ENOXAPARIN 40 MG/0.4 ML SYG SC SCH (08:57)
[2016-09-01] MEDS: ACETAMINOPHEN 500 MG TAB PO PRN (09:24)
[2016-09-01] MEDS: VANCOMYCIN 750 MG in SOD CHLORIDE 0.9% 150 ML IVPB SCH (12:24)
[2016-09-01] MEDS: SOD CHLORIDE 0.45% 1,000 ML IV SCH (12:24)
--- NOTE | 2016-09-01 13:03 | CONS ---
Date/Time of Note Date/Time of Note DATE: 09/01/16 TIME: 13:01 Assessment/Plan Assessment/Plan Chief Complaint/Hosp Course IMPRESSION: 1. Positive troponin consistent with non-ST elevation myocardial infarction. Possibly demand event in the setting of tachycardia.-last enzymes downtrending. Conservative management. NO [facility] planned at this time 2. Abnormal electrocardiogram with nonspecific ST and T abnormalities and poor R-wave progression across the anterior precordial leads in the setting of positive troponins. 3. Tachycardia consistent with sinus tachycardia in the setting of volume depletion. 4. Hypertension, reasonable 5. Altered mental state/encephalopathy. 6. Dyslipidemia. 7. Pneumonia by chest x-ray. Possible reason for patient's possible demand ischemia. 8. Diabetes mellitus. 9. Possible urinary tract infection. Recc: -Tele -continue asa/plavix to maximize medical therapy. -Continue BB/ACEI and follow somewhat labile BP-? component of pain or anxiety -Continue statin -Continue abx's and f/u cx data Problems: Consultation Date/Type/Reason Admit Date/Time Aug 23, 2016 at 09:42 Initial Consult Date 08/27/2016 Type of Consultation: cardiology Reason for Consultation Nstemi/CHF Referring Provider: VALENTIN RHOADES MD Exam/Review of Systems Vital Signs Vitals Vital Signs Date Time Temp Pulse Resp B/P Pulse Ox O2 Delivery O2 Flow Rate FiO2 09/01/16 12:04 57 09/01/16 11:58 97.8 17 130/55 97 09/01/16 08:19 Nasal Cannula 2.0 Intake and Output 08/31/16 08/31/16 09/01/16 15:00 23:00 07:00 Intake Total 1800 ml 230 ml Output Total 1200 ml 600 ml Balance 600 ml -370 ml Exam Review of Systems: CONSTITUTIONAL: No fevers, chills. PULMONARY: No sob CARDIOVASCULAR: No chest pain/palpitations GASTROINTESTINAL: No nausea/vomiting. GENITOURINARY: No hematuria/dysuria. MUSCULOSKELETAL: No myagias/arthalgias. PSYCHIATRIC: The patient denies depression. NEUROLOGIC: No weakness Constitutional: alert Psych: no complaints Head: normocephalic ENMT: mucosa pink and moist Neck: jvd, supple Respiratory: diminished breath sounds Cardiovascular: regular rate and rhythm Gastrointestinal: non-tender, soft Extremities: edema (none), normal pulses Neurological: lethargic, other (No focal deficits) Results Result Diagram: 08/31/16 0550 08/31/16 0550 Results 24 hrs Laboratory Tests Test 08/31/16 16:22 08/31/16 20:30 09/01/16 05:40 09/01/16 07:39 Bedside Glucose 141 162 98 B-Type Natriuretic Peptide 5170 H Test 09/01/16 11:34 Bedside Glucose 124 Medications Medications Current Medications Acetaminophen (Tylenol Tab) 1,000 mg Q4 PRN PO PAIN AND OR ELEVATED TEMP Last administered on 09/01/16 09:24; Admin Dose 1,000 MG; Start 08/23/16 at 16:00 Acetaminophen (Tylenol Tab) 650 mg Q4 PRN PO PAIN AND OR ELEVATED TEMP Last administered on 09/01/16 05:24; Admin Dose 650 MG; Start 08/23/16 at 16:00 Aspirin (Aspirin) 81 mg DAILY PO Last administered on 09/01/16 08:45; Admin Dose 81 MG; Start 08/24/16 at 09:00 Glucose (Glutose) 22.5 gm PRN PO ; Start 08/23/16 at 16:00 Fenofibrate (Tricor) 145 mg QAM PO Last administered on 09/01/16 08:45; Admin Dose 145 MG; Start 08/24/16 at 09:00 Lidocaine (Lidoderm) 1 patch DAILY TD Last administered on 08/31/16 07:50; Admin Dose 1 PATCH; Start 08/24/16 at 09:00 Sodium Biphosphate/ Sodium Phosphate (Fleet Enema) 133 ml DAILY PRN [place] CONSTIPATION Last administered on 08/26/16 18:38; Admin Dose 133 ML; Start at 16:00 Senna (Senokot) 2 tab QHS PO Last administered on 08/31/16 20:59; Admin Dose 2 TAB; Start 08/23/16 at 21:00 Multivitamins/ Minerals (Theragran-M) 1 tab QAM PO Last administered on 08:45; Admin Dose 1 TAB; Start 08/24/16 at 09:00 Ondansetron HCl (Zofran Inj) 4 mg Q6H PRN IV NAUSEA AND/OR VOMITING Last administered on 08/28/16 04:50; Admin Dose 4 MG; Start 08/23/16 at 16:30 Nitroglycerin (Nitroglycerin (Sl Tab) 0.4 Mg) 1 tab Q5M PRN SL CHEST PAIN; Start 08/23/16 at 16:30 Docusate Sodium (Colace) 100 mg Q12H PRN PO CONSTIPATION; Start 08/23/16 at 16 :30 Magnesium Hydroxide (Milk Of Mag) 30 ml DAILY PRN PO CONSTIPATION; Start 08/23 at 16:30 Bisacodyl (Dulcolax Supp) 10 mg DAILY PRN [place] CONSTIPATION Last administered on 08/30/16 21:49; Admin Dose 10 MG; Start 08/23/16 at 16:30 Enoxaparin Sodium (Lovenox) 40 mg DAILY SC Last administered on 09/01/16 08:57 ; Admin Dose 40 MG; Start 08/24/16 at 09:00 Metoprolol Tartrate (Lopressor) 25 mg BID PO Last administered on 09/01/16 08: 47; Admin Dose 25 MG; Start 08/23/16 at 21:00 Metoprolol Tartrate 5 mg 5 mg Q4H PRN IV HR>110 Hold SBP<100; Start 08/23/16 at 16:30 Cefepime HCl (Maxipime 2gm/50 ml (Pmx)) 50 ml @ 100 mls/hr Q24H IVPB Last administered on 08/31/16 20:58; Admin Dose 100 MLS/HR; Start 08/23/16 at 21: 00 Famotidine (Pepcid) 20 mg DAILY PO Last administered on 09/01/16 08:45; Admin Dose 20 MG; Start 08/24/16 at 09:00 Calcium/Vitamin D (Oyster Shell/ Vit-D (500/200)) 1 tab BID PO Last administered on 09/01/16 08:45; Admin Dose 1 TAB; Start 08/23/16 at 21:00 Insulin Detemir (Levemir) 15 unit QHS SC Last administered on 08/31/16 21:11 ; Admin Dose 15 UNIT; Start 08/23/16 at 21:00 Atorvastatin Calcium (Lipitor) 10 mg DAILY@21 PO Last administered on 20:58; Admin Dose 10 MG; Start 08/23/16 at 21:00 Guaifenesin/ Codeine Phosphate (Robitussin Ac Liquid Cup) 5 ml Q6 PRN PO COUGH Last administered on 08/26/16at 21:28; Admin Dose 5 ML; Start 08/24/16 at 10:30 Ascorbic Acid (Vitamin C) 500 mg DAILY PO Last administered on 09/01/16 08:45; Admin Dose 500 MG; Start 08/28/16 at 09:00 Diagnostic Test (Pha) (Accucheck) 1 ea 02 XX Last administered on 09/01/16 02: 27; Admin Dose 1 EA; Start 08/26/16 at 02:00 Miscellaneous Information 1 ea NOTE XX ; Start 08/25/16 at 13:00 Glucose (Glutose) 15 gm Q15M PRN PO DECREASED GLUCOSE; Start 08/25/16 at 13:00 Glucose (Glutose) 22.5 gm Q15M PRN PO DECREASED GLUCOSE; Start 08/25/16 at 13: 00 Dextrose (D50w Syringe) 25 ml Q15M PRN IV DECREASED GLUCOSE; Start 08/25/16 at 13:00 Dextrose (D50w Syringe) 50 ml Q15M PRN IV DECREASED GLUCOSE; Start 08/25/16 at 13:00 Glucagon (Glucagen) 1 mg Q15M PRN IM DECREASED GLUCOSE; Start 08/25/16 at 13: 00 Glucose (Glutose) 15 gm Q15M PRN BUCCAL DECREASED GLUCOSE Last administered on 08/30/16at 08:17; Admin Dose 15 GM; Start 08/25/16 at 13:00 Neomycin/ Polymyxin/ Bacitracin (Neosporin Topical Oint) 1 applic TID TOP Last administered on 09/01/16 12:30; Admin Dose 1 APPLIC; Start 08/26/16 at 23:00 Morphine Sulfate (morphine) 1 mg Q4H PRN IV PAIN LEVEL 7-10; Start 08/26/16 at 23:30 Benazepril HCl (Lotensin) 10 mg DAILY PO Last administered on 09/01/16 08:46; Admin Dose 10 MG; Start 08/29/16 at 09:00 Clopidogrel Bisulfate 75 mg 75 mg DAILY PO Last administered on 09/01/16 08:45 ; Admin Dose 75 MG; Start 08/30/16 at 09:00 Sodium Chloride 1,000 ml @ 60 mls/hr [id number] IV Last administered on 09/01/16 12:24; Admin Dose 60 MLS/HR; Start 08/29/16 at 20:00 Vancomycin HCl/ Sodium Chloride (Vancocin/NS) 150 ml @ 75 mls/hr Q24H IVPB Last administered on 09/01/16 12:24; Admin Dose 75 MLS/HR; Start 08/31/16 at 13 :00 RJ CIFUENTES Sep 01, 2016 13:03
[2016-09-01] MEDS: CEFEPIME 2GM/50 ML (PMX) 50 ML IVPB SCH (21:05)
[2016-09-01] MEDS: ATORVASTATIN 10 MG TAB PO SCH (21:06)
[2016-09-01] MEDS: SENNA TAB PO SCH (21:06)
[2016-09-01] MEDS: INSULIN DETEMIR [LEVEMIR] 3ML CART SC SCH (21:20)
[2016-09-02] VITALS (11 sets, daily range): BP systolic 134–179; BP diastolic 56–77; PULSE 53–69; RESP 16–18
[2016-09-02] MEDS: ACCUCHECK XX SCH (02:00)
[2016-09-02 07:50] LABS: CREATININE 0.69 mg/dl (0.44-1.00)
[2016-09-02] MEDS: INSULIN ASPART [NOVOLOG] 3 ML PEN SC SCH ×4 (08:00→21:00)
[2016-09-02] MEDS: GLUCOSE GEL 15 GRAM TUBE BUCCAL PRN (08:02)
[2016-09-02] MEDS: SOD CHLORIDE 0.45% 1,000 ML IV SCH (08:08)
[2016-09-02] MEDS: LIDOCAINE 5% PATCH TD SCH (08:23)
[2016-09-02] MEDS: ASPIRIN 81 MG TAB PO SCH (08:24)
[2016-09-02] MEDS: ASCORBIC ACID 500 MG TAB.CHEW PO SCH (08:24)
[2016-09-02] MEDS: CALCIUM/VITAMIN D (500/200) TAB PO SCH ×2 (08:24→21:00)
[2016-09-02] MEDS: MULTIVITAMINS/MINERALS TAB PO SCH (08:24)
[2016-09-02] MEDS: FAMOTIDINE 20 MG TAB PO SCH (08:24)
[2016-09-02] MEDS: FENOFIBRATE 145 MG TAB PO SCH (08:24)
[2016-09-02] MEDS: ACETAMINOPHEN 325 MG TAB PO PRN (08:24)
[2016-09-02] MEDS: CLOPIDOGREL 75 MG TAB PO SCH (08:24)
[2016-09-02] MEDS: BENAZEPRIL 10 MG TAB PO SCH ×2 (08:25→20:57)
[2016-09-02] MEDS: METOPROLOL 25 MG TAB PO SCH ×2 (08:26→20:56)
[2016-09-02] MEDS: ENOXAPARIN 40 MG/0.4 ML SYG SC SCH (08:28)
[2016-09-02] MEDS: NEOMYC/POLYMYX/BACIT 30 GM OINT TOP SCH ×3 (09:11→20:56)
[2016-09-02] MEDS: LEVALBUTEROL (NEB) 0.63 MG/3 ML AMP HHN SCH ×2 (09:24→19:44)
--- NOTE | 2016-09-02 12:07 | CONS ---
Date/Time of Note Date/Time of Note DATE: 09/02/16 TIME: 12:04 Assessment/Plan Assessment/Plan Chief Complaint/Hosp Course IMPRESSION: 1. Positive troponin consistent with non-ST elevation myocardial infarction. Possibly demand event in the setting of tachycardia.-last enzymes downtrending. Conservative management. NO [facility] planned at this time 2. Abnormal electrocardiogram with nonspecific ST and T abnormalities and poor R-wave progression across the anterior precordial leads in the setting of positive troponins. 3. Tachycardia consistent with sinus tachycardia in the setting of volume depletion. 4. Hypertension, reasonable 5. Altered mental state/encephalopathy. 6. Dyslipidemia. 7. Pneumonia by chest x-ray. Possible reason for patient's possible demand ischemia. 8. Diabetes mellitus. 9. Possible urinary tract infection. Recc: -Tele -continue asa/plavix to maximize medical therapy. -Continue BB/ACEI with slight increase to improve BP control -Continue statin -Continue abx's and f/u cx data -Follow volume status closely Problems: Consultation Date/Type/Reason Admit Date/Time Aug 23, 2016 at 09:42 Initial Consult Date 08/27/2016 Type of Consultation: cardiology Reason for Consultation Nstemi Referring Provider: VALENTIN RHOADES MD Exam/Review of Systems Vital Signs Vitals Vital Signs Date Time Temp Pulse Resp B/P Pulse Ox O2 Delivery O2 Flow Rate FiO2 09/02/16 12:01 60 09/02/16 11:48 98.5 16 150/63 94 09/02/16 09:24 Nasal Cannula 2.0 09/01/16 19:31 28 Intake and Output 09/01/16 09/01/16 09/02/16 15:00 23:00 07:00 Intake Total 300 ml 1140 ml 350 ml Output Total 1200 ml 1000 ml Balance 300 ml -60 ml -650 ml Exam Review of Systems: CONSTITUTIONAL: No fevers, chills. PULMONARY: No sob CARDIOVASCULAR: No chest pain/palpitations GASTROINTESTINAL: No nausea/vomiting. GENITOURINARY: No hematuria/dysuria. MUSCULOSKELETAL: No myagias/arthalgias. PSYCHIATRIC: The patient denies depression. NEUROLOGIC: encephalopathic Constitutional: alert, oriented Psych: no complaints Head: normocephalic ENMT: mucosa pink and moist Neck: jvd (8-9 cm water), supple Respiratory: clear to auscultation Cardiovascular: regular rate and rhythm Gastrointestinal: non-tender, soft Musculoskeletal: muscle tone (normal) Extremities: edema (none), other (contracted) Neurological: lethargic Results Result Diagram: 08/31/16 0550 09/02/16 0550 Results 24 hrs Laboratory Tests Test 09/01/16 16:42 09/01/16 20:43 09/02/16 05:50 09/02/16 07:52 Bedside Glucose 121 137 64 L Blood Urea Nitrogen 16 Creatinine 0.69 Test 09/02/16 07:54 09/02/16 08:35 09/02/16 11:33 Bedside Glucose 60 L 130 139 Medications Medications Current Medications Acetaminophen (Tylenol Tab) 1,000 mg Q4 PRN PO PAIN AND OR ELEVATED TEMP Last administered on 09/01/16 09:24; Admin Dose 1,000 MG; Start 08/23/16 at 16:00 Acetaminophen (Tylenol Tab) 650 mg Q4 PRN PO PAIN AND OR ELEVATED TEMP Last administered on 09/02/16 08:24; Admin Dose 650 MG; Start 08/23/16 at 16:00 Aspirin (Aspirin) 81 mg DAILY PO Last administered on 09/02/16 08:24; Admin Dose 81 MG; Start 08/24/16 at 09:00 Glucose (Glutose) 22.5 gm PRN PO ; Start 08/23/16 at 16:00 Fenofibrate (Tricor) 145 mg QAM PO Last administered on 09/02/16 08:24; Admin Dose 145 MG; Start 08/24/16 at 09:00 Lidocaine (Lidoderm) 1 patch DAILY TD Last administered on 09/02/16 08:23; Admin Dose 1 PATCH; Start 08/24/16 at 09:00 Sodium Biphosphate/ Sodium Phosphate (Fleet Enema) 133 ml DAILY PRN [place] CONSTIPATION Last administered on 08/26/16at 18:38; Admin Dose 133 ML; Start at 16:00 Senna (Senokot) 2 tab QHS PO Last administered on 09/01/16 21:06; Admin Dose 2 TAB; Start 08/23/16 at 21:00 Multivitamins/ Minerals (Theragran-M) 1 tab QAM PO Last administered on 08:24; Admin Dose 1 TAB; Start 08/24/16 at 09:00 Ondansetron HCl (Zofran Inj) 4 mg Q6H PRN IV NAUSEA AND/OR VOMITING Last administered on 08/28/16at 04:50; Admin Dose 4 MG; Start 08/23/16 at 16:30 Nitroglycerin (Nitroglycerin (Sl Tab) 0.4 Mg) 1 tab Q5M PRN SL CHEST PAIN; Start 08/23/16 at 16:30 Docusate Sodium (Colace) 100 mg Q12H PRN PO CONSTIPATION; Start 08/23/16 at 16 :30 Magnesium Hydroxide (Milk Of Mag) 30 ml DAILY PRN PO CONSTIPATION; Start 08/23 at 16:30 Bisacodyl (Dulcolax Supp) 10 mg DAILY PRN [place] CONSTIPATION Last administered on 08/30/16at 21:49; Admin Dose 10 MG; Start 08/23/16 at 16:30 Enoxaparin Sodium (Lovenox) 40 mg DAILY SC Last administered on 09/02/16 08:28 ; Admin Dose 40 MG; Start 08/24/16 at 09:00 Metoprolol Tartrate (Lopressor) 25 mg BID PO Last administered on 09/01/16 21: 06; Admin Dose 25 MG; Start 08/23/16 at 21:00 Metoprolol Tartrate 5 mg 5 mg Q4H PRN IV HR>110 Hold SBP<100; Start 08/23/16 at 16:30 Cefepime HCl (Maxipime 2gm/50 ml (Pmx)) 50 ml @ 100 mls/hr Q24H IVPB Last administered on 09/01/16 21:05; Admin Dose 100 MLS/HR; Start 08/23/16 at 21:00 Famotidine (Pepcid) 20 mg DAILY PO Last administered on 09/02/16 08:24; Admin Dose 20 MG; Start 08/24/16 at 09:00 Calcium/Vitamin D (Oyster Shell/ Vit-D (500/200)) 1 tab BID PO Last administered on 09/02/16 08:24; Admin Dose 1 TAB; Start 08/23/16 at 21:00 Insulin Detemir (Levemir) 15 unit QHS SC Last administered on 09/01/16 21:20; Admin Dose 15 UNIT; Start 08/23/16 at 21:00 Atorvastatin Calcium (Lipitor) 10 mg DAILY@21 PO Last administered on 09/01/16 21:06; Admin Dose 10 MG; Start 08/23/16 at 21:00 Guaifenesin/ Codeine Phosphate (Robitussin Ac Liquid Cup) 5 ml Q6 PRN PO COUGH Last administered on 08/26/16at 21:28; Admin Dose 5 ML; Start 08/24/16 at 10:30 Ascorbic Acid (Vitamin C) 500 mg DAILY PO Last administered on 09/02/16 08:24; Admin Dose 500 MG; Start 08/28/16 at 09:00 Diagnostic Test (Pha) (Accucheck) 1 ea 02 XX Last administered on 09/01/16 02: 27; Admin Dose 1 EA; Start 08/26/16 at 02:00 Miscellaneous Information 1 ea NOTE XX ; Start 08/25/16 at 13:00 Glucose (Glutose) 15 gm Q15M PRN PO DECREASED GLUCOSE; Start 08/25/16 at 13:00 Glucose (Glutose) 22.5 gm Q15M PRN PO DECREASED GLUCOSE; Start 08/25/16 at 13: 00 Dextrose (D50w Syringe) 25 ml Q15M PRN IV DECREASED GLUCOSE; Start 08/25/16 at 13:00 Dextrose (D50w Syringe) 50 ml Q15M PRN IV DECREASED GLUCOSE; Start 08/25/16 at 13:00 Glucagon (Glucagen) 1 mg Q15M PRN IM DECREASED GLUCOSE; Start 08/25/16 at 13: 00 Glucose (Glutose) 15 gm Q15M PRN BUCCAL DECREASED GLUCOSE Last administered on 09/02/16 08:02; Admin Dose 15 GM; Start 08/25/16 at 13:00 Neomycin/ Polymyxin/ Bacitracin (Neosporin Topical Oint) 1 applic TID TOP Last administered on 09/02/16 09:11; Admin Dose 1 APPLIC; Start 08/26/16 at 23:00 Morphine Sulfate (morphine) 1 mg Q4H PRN IV PAIN LEVEL 7-10; Start 08/26/16 at 23:30 Benazepril HCl (Lotensin) 10 mg DAILY PO Last administered on 09/02/16 08:25; Admin Dose 10 MG; Start 08/29/16 at 09:00 Clopidogrel Bisulfate 75 mg 75 mg DAILY PO Last administered on 09/02/16 08:24 ; Admin Dose 75 MG; Start 08/30/16 at 09:00 Sodium Chloride 1,000 ml @ 60 mls/hr [id number] IV Last administered on 09/02/16 08:08; Admin Dose 60 MLS/HR; Start 08/29/16 at 20:00 Vancomycin HCl/ Sodium Chloride (Vancocin/NS) 150 ml @ 75 mls/hr Q24H IVPB Last administered on 09/01/16 12:24; Admin Dose 75 MLS/HR; Start 08/31/16 at 13 :00 RJ CIFUENTES Sep 02, 2016 12:07
[2016-09-02] MEDS: VANCOMYCIN 750 MG in SOD CHLORIDE 0.9% 150 ML IVPB SCH (12:53)
--- NOTE | 2016-09-02 13:55 | PN ---
Date/Time of Note Date/Time of Note DATE: 09/02/16 TIME: 13:55 Assessment/Plan VTE Prophylaxis VTE Prophylaxis Intervention: other Lines/Catheters IV Catheter Type (from Nrs): Peripheral IV Urinary Cath still in place: Yes Reason Cath still needed: skin wounds contaminated by urine Assessment/Plan Chief Complaint/Hosp Course 1. Healthcare facility acquired pneumonia - IV antibiotics 2. Non-ST elevation myocardial infarction - monitor 3. Hypertension - continue meds 4. Diabetes mellitus - monitor blood sugar Problems: Subjective 24 Hr Interval Summary Free Text/Dictation Patient has no complaints Exam/Review of Systems Vital Signs Vitals Vital Signs Date Time Temp Pulse Resp B/P Pulse Ox O2 Delivery O2 Flow Rate FiO2 09/02/16 12:01 60 09/02/16 11:48 98.5 16 150/63 94 09/02/16 09:24 Nasal Cannula 2.0 09/01/16 19:31 28 Intake and Output 09/01/16 09/01/16 09/02/16 15:00 23:00 07:00 Intake Total 300 ml 1140 ml 350 ml Output Total 1200 ml 1000 ml Balance 300 ml -60 ml -650 ml Exam Constitutional: well developed Neck: supple Respiratory: clear to auscultation Cardiovascular: regular rate and rhythm Gastrointestinal: non-tender, soft Extremities: normal pulses Results Result Diagram: 08/31/16 0550 09/02/16 0550 Results 24 hrs Laboratory Tests Test 09/01/16 16:42 09/01/16 20:43 09/02/16 05:50 09/02/16 07:52 Bedside Glucose 121 137 64 L Blood Urea Nitrogen 16 Creatinine 0.69 Test 09/02/16 07:54 09/02/16 08:35 09/02/16 11:33 Bedside Glucose 60 L 130 139 Medications Medications Current Medications Acetaminophen (Tylenol Tab) 1,000 mg Q4 PRN PO PAIN AND OR ELEVATED TEMP Last administered on 09/01/16 09:24; Admin Dose 1,000 MG; Start 08/23/16 at 16:00 Acetaminophen (Tylenol Tab) 650 mg Q4 PRN PO PAIN AND OR ELEVATED TEMP Last administered on 09/02/16 08:24; Admin Dose 650 MG; Start 08/23/16 at 16:00 Aspirin (Aspirin) 81 mg DAILY PO Last administered on 09/02/16 08:24; Admin Dose 81 MG; Start 08/24/16 at 09:00 Glucose (Glutose) 22.5 gm PRN PO ; Start 08/23/16 at 16:00 Fenofibrate (Tricor) 145 mg QAM PO Last administered on 09/02/16 08:24; Admin Dose 145 MG; Start 08/24/16 at 09:00 Lidocaine (Lidoderm) 1 patch DAILY TD Last administered on 09/02/16 08:23; Admin Dose 1 PATCH; Start 08/24/16 at 09:00 Sodium Biphosphate/ Sodium Phosphate (Fleet Enema) 133 ml DAILY PRN [place] CONSTIPATION Last administered on 08/26/16at 18:38; Admin Dose 133 ML; Start at 16:00 Senna (Senokot) 2 tab QHS PO Last administered on 09/01/16 21:06; Admin Dose 2 TAB; Start 08/23/16 at 21:00 Multivitamins/ Minerals (Theragran-M) 1 tab QAM PO Last administered on 08:24; Admin Dose 1 TAB; Start 08/24/16 at 09:00 Ondansetron HCl (Zofran Inj) 4 mg Q6H PRN IV NAUSEA AND/OR VOMITING Last administered on 08/28/16at 04:50; Admin Dose 4 MG; Start 08/23/16 at 16:30 Nitroglycerin (Nitroglycerin (Sl Tab) 0.4 Mg) 1 tab Q5M PRN SL CHEST PAIN; Start 08/23/16 at 16:30 Docusate Sodium (Colace) 100 mg Q12H PRN PO CONSTIPATION; Start 08/23/16 at 16 :30 Magnesium Hydroxide (Milk Of Mag) 30 ml DAILY PRN PO CONSTIPATION; Start 08/23 at 16:30 Bisacodyl (Dulcolax Supp) 10 mg DAILY PRN [place] CONSTIPATION Last administered on 08/30/16at 21:49; Admin Dose 10 MG; Start 08/23/16 at 16:30 Enoxaparin Sodium (Lovenox) 40 mg DAILY SC Last administered on 09/02/16 08:28 ; Admin Dose 40 MG; Start 08/24/16 at 09:00 Metoprolol Tartrate (Lopressor) 25 mg BID PO Last administered on 09/01/16 21: 06; Admin Dose 25 MG; Start 08/23/16 at 21:00 Metoprolol Tartrate 5 mg 5 mg Q4H PRN IV HR>110 Hold SBP<100; Start 08/23/16 at 16:30 Cefepime HCl (Maxipime 2gm/50 ml (Pmx)) 50 ml @ 100 mls/hr Q24H IVPB Last administered on 09/01/16 21:05; Admin Dose 100 MLS/HR; Start 08/23/16 at 21:00 Famotidine (Pepcid) 20 mg DAILY PO Last administered on 09/02/16 08:24; Admin Dose 20 MG; Start 08/24/16 at 09:00 Calcium/Vitamin D (Oyster Shell/ Vit-D (500/200)) 1 tab BID PO Last administered on 09/02/16 08:24; Admin Dose 1 TAB; Start 08/23/16 at 21:00 Insulin Detemir (Levemir) 15 unit QHS SC Last administered on 09/01/16 21:20; Admin Dose 15 UNIT; Start 08/23/16 at 21:00 Atorvastatin Calcium (Lipitor) 10 mg DAILY@21 PO Last administered on 09/01/16 21:06; Admin Dose 10 MG; Start 08/23/16 at 21:00 Guaifenesin/ Codeine Phosphate (Robitussin Ac Liquid Cup) 5 ml Q6 PRN PO COUGH Last administered on 08/26/16at 21:28; Admin Dose 5 ML; Start 08/24/16 at 10:30 Ascorbic Acid (Vitamin C) 500 mg DAILY PO Last administered on 09/02/16 08:24; Admin Dose 500 MG; Start 08/28/16 at 09:00 Diagnostic Test (Pha) (Accucheck) 1 ea 02 XX Last administered on 09/01/16 02: 27; Admin Dose 1 EA; Start 08/26/16 at 02:00 Miscellaneous Information 1 ea NOTE XX ; Start 08/25/16 at 13:00 Glucose (Glutose) 15 gm Q15M PRN PO DECREASED GLUCOSE; Start 08/25/16 at 13:00 Glucose (Glutose) 22.5 gm Q15M PRN PO DECREASED GLUCOSE; Start 08/25/16 at 13: 00 Dextrose (D50w Syringe) 25 ml Q15M PRN IV DECREASED GLUCOSE; Start 08/25/16 at 13:00 Dextrose (D50w Syringe) 50 ml Q15M PRN IV DECREASED GLUCOSE; Start 08/25/16 at 13:00 Glucagon (Glucagen) 1 mg Q15M PRN IM DECREASED GLUCOSE; Start 08/25/16 at 13: 00 Glucose (Glutose) 15 gm Q15M PRN BUCCAL DECREASED GLUCOSE Last administered on 09/02/16 08:02; Admin Dose 15 GM; Start 08/25/16 at 13:00 Neomycin/ Polymyxin/ Bacitracin (Neosporin Topical Oint) 1 applic TID TOP Last administered on 09/02/16 12:54; Admin Dose 1 APPLIC; Start 08/26/16 at 23:00 Morphine Sulfate (morphine) 1 mg Q4H PRN IV PAIN LEVEL 7-10; Start 08/26/16 at 23:30 Clopidogrel Bisulfate 75 mg 75 mg DAILY PO Last administered on 09/02/16 08:24 ; Admin Dose 75 MG; Start 08/30/16 at 09:00 Sodium Chloride 1,000 ml @ 60 mls/hr [id number] IV Last administered on 09/02/16 08:08; Admin Dose 60 MLS/HR; Start 08/29/16 at 20:00 Vancomycin HCl/ Sodium Chloride (Vancocin/NS) 150 ml @ 75 mls/hr Q24H IVPB Last administered on 09/02/16 12:53; Admin Dose 75 MLS/HR; Start 08/31/16 at 13 :00 Benazepril HCl (Lotensin) 10 mg BID PO ; Start 09/02/16 at 21:00 NEHA WILSON Sep 02, 2016 13:55
[2016-09-02] MEDS: SENNA TAB PO SCH (20:55)
[2016-09-02] MEDS: ATORVASTATIN 10 MG TAB PO SCH (20:55)
[2016-09-02] MEDS: CEFEPIME 2GM/50 ML (PMX) 50 ML IVPB SCH (20:55)
[2016-09-02] MEDS: INSULIN DETEMIR [LEVEMIR] 3ML CART SC SCH (21:01)
[2016-09-03] VITALS (13 sets, daily range): BP systolic 108–165; BP diastolic 46–68; PULSE 43–88; RESP 18–20
[2016-09-03] MEDS: ACCUCHECK XX SCH (02:10)
[2016-09-03] MEDS: SOD CHLORIDE 0.45% 1,000 ML IV SCH ×2 (05:35→16:40)
[2016-09-03] MEDS: INSULIN ASPART [NOVOLOG] 3 ML PEN SC SCH ×4 (07:38→21:00)
[2016-09-03] MEDS: METOPROLOL 25 MG TAB PO SCH ×2 (07:52→21:36)
[2016-09-03] MEDS: ENOXAPARIN 40 MG/0.4 ML SYG SC SCH (08:29)
[2016-09-03] MEDS: LIDOCAINE 5% PATCH TD SCH (08:30)
[2016-09-03] MEDS: ASCORBIC ACID 500 MG TAB.CHEW PO SCH (08:30)
[2016-09-03] MEDS: BENAZEPRIL 10 MG TAB PO SCH ×2 (08:30→21:35)
[2016-09-03] MEDS: FENOFIBRATE 145 MG TAB PO SCH (08:32)
[2016-09-03] MEDS: CLOPIDOGREL 75 MG TAB PO SCH (08:32)
[2016-09-03] MEDS: ACETAMINOPHEN 325 MG TAB PO PRN ×2 (08:32→12:15)
[2016-09-03] MEDS: FAMOTIDINE 20 MG TAB PO SCH (08:32)
[2016-09-03] MEDS: CALCIUM/VITAMIN D (500/200) TAB PO SCH ×2 (08:32→21:30)
[2016-09-03] MEDS: MULTIVITAMINS/MINERALS TAB PO SCH (08:33)
[2016-09-03] MEDS: ASPIRIN 81 MG TAB PO SCH (08:33)
[2016-09-03] MEDS: NEOMYC/POLYMYX/BACIT 30 GM OINT TOP SCH ×3 (08:46→21:47)
[2016-09-03] MEDS: BISACODYL 10 MG SUPP PR PRN (10:01)
[2016-09-03] MEDS: LEVALBUTEROL (NEB) 0.63 MG/3 ML AMP HHN SCH ×2 (10:21→20:31)
--- NOTE | 2016-09-03 11:31 | CONS ---
Date/Time of Note Date/Time of Note DATE: 09/03/16 TIME: 11:29 Assessment/Plan Assessment/Plan Additional Assessment/Plan 1. Positive troponin consistent with non-ST elevation myocardial infarction. Possibly demand event in the setting of tachycardia.-last enzymes downtrending. Conservative management. [facility] at [facility] - stable. Family at bedside - happy with care. 2. Abnormal electrocardiogram with nonspecific ST and T abnormalities and poor R-wave progression across the anterior precordial leads in the setting of positive troponins. 3. Tachycardia consistent with sinus tachycardia in the setting of volume depletion.HR well Rx now. 4. Hypertension, reasonable - add therapy as needed. 5. Altered mental state/encephalopathy. 6. Dyslipidemia. 7. Pneumonia by chest x-ray. Possible reason for patient's possible demand ischemia. On anti-Bx 8. Diabetes mellitus. 9. Possible urinary tract infection. Consultation Date/Type/Reason Admit Date/Time Aug 23, 2016 at 09:42 Initial Consult Date Type of Consultation: cardiology Referring Provider: VALENTIN RHOADES MD 24 HR Interval Summary Free Text/Dictation NO acute events - feels better today. Family at bedside - happy with care. ROS: No fever, no chills, no nausea, no vomiting, no diarrhea/constipation No recent weight changes No chest pain, no PND, no orthopnea No dizziness, blurred vision No thirst, no heat or cold intolerance Exam/Review of Systems Vital Signs Vitals Vital Signs Date Time Temp Pulse Resp B/P Pulse Ox O2 Delivery O2 Flow Rate FiO2 09/03/16 10:23 62 18 98 Nasal Cannula 2.0 09/03/16 07:37 98.6 142/60 09/02/16 19:45 28 Intake and Output 09/02/16 09/02/16 09/03/16 15:00 23:00 07:00 Intake Total 600 ml 320 ml Output Total 950 ml 900 ml Balance -350 ml -580 ml Exam General: WN/WD/NAD, AOx 0 HEENT: Unicetric/atraumatic/EOMI (does not follow commands) NECK: JVD elevated, no thyromegaly Lymph: no lymphadenopathy HEART: regular with no S3, II/ systolic murmur at apex LUNGS: Coarse sounds ABD: soft, NT, ND, +BS : Intact Neuro: non focal SKIN: chronic changes EXT: trace edema Results Result Diagram: 08/31/16 0550 09/02/16 0550 Results 24 hrs Laboratory Tests Test 09/02/16 11:33 09/02/16 17:07 09/02/16 17:19 09/02/16 17:48 Bedside Glucose 139 61 L 71 137 Test 09/02/16 18:10 09/02/16 20:53 09/03/16 07:33 Bedside Glucose 159 129 84 Medications Medications Current Medications Acetaminophen (Tylenol Tab) 1,000 mg Q4 PRN PO PAIN AND OR ELEVATED TEMP Last administered on 09/01/16 09:24; Admin Dose 1,000 MG; Start 08/23/16 at 16:00 Acetaminophen (Tylenol Tab) 650 mg Q4 PRN PO PAIN AND OR ELEVATED TEMP Last administered on 09/03/16 08:32; Admin Dose 650 MG; Start 08/23/16 at 16:00 Aspirin (Aspirin) 81 mg DAILY PO Last administered on 09/03/16 08:33; Admin Dose 81 MG; Start 08/24/16 at 09:00 Glucose (Glutose) 22.5 gm PRN PO ; Start 08/23/16 at 16:00 Fenofibrate (Tricor) 145 mg QAM PO Last administered on 09/03/16 08:32; Admin Dose 145 MG; Start 08/24/16 at 09:00 Lidocaine (Lidoderm) 1 patch DAILY TD Last administered on 09/03/16 08:30; Admin Dose 1 PATCH; Start 08/24/16 at 09:00 Sodium Biphosphate/ Sodium Phosphate (Fleet Enema) 133 ml DAILY PRN [place] CONSTIPATION Last administered on 08/26/16at 18:38; Admin Dose 133 ML; Start at 16:00 Senna (Senokot) 2 tab QHS PO Last administered on 09/02/16 20:55; Admin Dose 2 TAB; Start 08/23/16 at 21:00 Multivitamins/ Minerals (Theragran-M) 1 tab QAM PO Last administered on 08:33; Admin Dose 1 TAB; Start 08/24/16 at 09:00 Ondansetron HCl (Zofran Inj) 4 mg Q6H PRN IV NAUSEA AND/OR VOMITING Last administered on 08/28/16at 04:50; Admin Dose 4 MG; Start 08/23/16 at 16:30 Nitroglycerin (Nitroglycerin (Sl Tab) 0.4 Mg) 1 tab Q5M PRN SL CHEST PAIN; Start 08/23/16 at 16:30 Docusate Sodium (Colace) 100 mg Q12H PRN PO CONSTIPATION; Start 08/23/16 at 16 :30 Magnesium Hydroxide (Milk Of Mag) 30 ml DAILY PRN PO CONSTIPATION; Start 08/23 at 16:30 Bisacodyl (Dulcolax Supp) 10 mg DAILY PRN [place] CONSTIPATION Last administered on 09/03/16 10:01; Admin Dose 10 MG; Start 08/23/16 at 16:30 Enoxaparin Sodium (Lovenox) 40 mg DAILY SC Last administered on 09/03/16 08:29 ; Admin Dose 40 MG; Start 08/24/16 at 09:00 Metoprolol Tartrate (Lopressor) 25 mg BID PO Last administered on 09/02/16 20: 56; Admin Dose 25 MG; Start 08/23/16 at 21:00 Metoprolol Tartrate 5 mg 5 mg Q4H PRN IV HR>110 Hold SBP<100; Start 08/23/16 at 16:30 Cefepime HCl (Maxipime 2gm/50 ml (Pmx)) 50 ml @ 100 mls/hr Q24H IVPB Last administered on 09/02/16 20:55; Admin Dose 100 MLS/HR; Start 08/23/16 at 21:00 Famotidine (Pepcid) 20 mg DAILY PO Last administered on 09/03/16 08:32; Admin Dose 20 MG; Start 08/24/16 at 09:00 Calcium/Vitamin D (Oyster Shell/ Vit-D (500/200)) 1 tab BID PO Last administered on 09/03/16 08:32; Admin Dose 1 TAB; Start 08/23/16 at 21:00 Insulin Detemir (Levemir) 15 unit QHS SC Last administered on 09/02/16 21:01; Admin Dose 15 UNIT; Start 08/23/16 at 21:00 Atorvastatin Calcium (Lipitor) 10 mg DAILY@21 PO Last administered on 09/02/16 20:55; Admin Dose 10 MG; Start 08/23/16 at 21:00 Guaifenesin/ Codeine Phosphate (Robitussin Ac Liquid Cup) 5 ml Q6 PRN PO COUGH Last administered on 08/26/16at 21:28; Admin Dose 5 ML; Start 08/24/16 at 10:30 Ascorbic Acid (Vitamin C) 500 mg DAILY PO Last administered on 09/03/16 08:30; Admin Dose 500 MG; Start 08/28/16 at 09:00 Diagnostic Test (Pha) (Accucheck) 1 ea 02 XX Last administered on 09/01/16 02: 27; Admin Dose 1 EA; Start 08/26/16 at 02:00 Miscellaneous Information 1 ea NOTE XX ; Start 08/25/16 at 13:00 Glucose (Glutose) 15 gm Q15M PRN PO DECREASED GLUCOSE; Start 08/25/16 at 13:00 Glucose (Glutose) 22.5 gm Q15M PRN PO DECREASED GLUCOSE; Start 08/25/16 at 13: 00 Dextrose (D50w Syringe) 25 ml Q15M PRN IV DECREASED GLUCOSE; Start 08/25/16 at 13:00 Dextrose (D50w Syringe) 50 ml Q15M PRN IV DECREASED GLUCOSE; Start 08/25/16 at 13:00 Glucagon (Glucagen) 1 mg Q15M PRN IM DECREASED GLUCOSE; Start 08/25/16 at 13: 00 Glucose (Glutose) 15 gm Q15M PRN BUCCAL DECREASED GLUCOSE Last administered on 09/02/16 08:02; Admin Dose 15 GM; Start 08/25/16 at 13:00 Neomycin/ Polymyxin/ Bacitracin (Neosporin Topical Oint) 1 applic TID TOP Last administered on 09/03/16 08:46; Admin Dose 1 APPLIC; Start 08/26/16 at 23:00 Morphine Sulfate (morphine) 1 mg Q4H PRN IV PAIN LEVEL 7-10; Start 08/26/16 at 23:30 Clopidogrel Bisulfate 75 mg 75 mg DAILY PO Last administered on 09/03/16 08:32 ; Admin Dose 75 MG; Start 08/30/16 at 09:00 Sodium Chloride 1,000 ml @ 60 mls/hr [id number] IV Last administered on 09/03/16 05:35; Admin Dose 60 MLS/HR; Start 08/29/16 at 20:00 Vancomycin HCl/ Sodium Chloride (Vancocin/NS) 150 ml @ 75 mls/hr Q24H IVPB Last administered on 09/02/16 12:53; Admin Dose 75 MLS/HR; Start 08/31/16 at 13 :00 Benazepril HCl (Lotensin) 10 mg BID PO Last administered on 09/03/16 08:30; Admin Dose 10 MG; Start 09/02/16 at 21:00 LIANET PAYTON MD Sep 03, 2016 11:31
[2016-09-03] MEDS: VANCOMYCIN 750 MG in SOD CHLORIDE 0.9% 150 ML IVPB SCH (12:16)
--- NOTE | 2016-09-03 12:57 | PN ---
Date/Time of Note Date/Time of Note DATE: 09/03/16 TIME: 12:57 Assessment/Plan VTE Prophylaxis VTE Prophylaxis Intervention: LMWH Lines/Catheters IV Catheter Type (from Nrs): Peripheral IV Urinary Cath still in place: Yes Reason Cath still needed: skin wounds contaminated by urine Assessment/Plan Chief Complaint/Hosp Course 1. Healthcare facility acquired pneumonia - IV antibiotics 2. Non-ST elevation myocardial infarction - monitor 3. Hypertension - continue meds 4. Diabetes mellitus - monitor blood sugar Problems: Subjective 24 Hr Interval Summary Free Text/Dictation Has more back pain today Exam/Review of Systems Vital Signs Vitals Vital Signs Date Time Temp Pulse Resp B/P Pulse Ox O2 Delivery O2 Flow Rate FiO2 09/03/16 12:04 61 09/03/16 11:36 98.1 18 108/46 100 09/03/16 10:23 Nasal Cannula 2.0 09/02/16 19:45 28 Intake and Output 09/02/16 09/02/16 09/03/16 15:00 23:00 07:00 Intake Total 600 ml 320 ml Output Total 950 ml 900 ml Balance -350 ml -580 ml Exam Constitutional: well developed Head: atraumatic, normocephalic Neck: supple Respiratory: diminished breath sounds Cardiovascular: regular rate and rhythm Gastrointestinal: non-tender, soft Results Result Diagram: 08/31/16 0550 09/02/16 0550 Results 24 hrs Laboratory Tests Test 09/02/16 17:07 09/02/16 17:19 09/02/16 17:48 09/02/16 18:10 Bedside Glucose 61 L 71 137 159 Test 09/02/16 20:53 09/03/16 07:33 09/03/16 11:24 Bedside Glucose 129 84 103 Medications Medications Current Medications Acetaminophen (Tylenol Tab) 1,000 mg Q4 PRN PO PAIN AND OR ELEVATED TEMP Last administered on 09/01/16 09:24; Admin Dose 1,000 MG; Start 08/23/16 at 16:00 Acetaminophen (Tylenol Tab) 650 mg Q4 PRN PO PAIN AND OR ELEVATED TEMP Last administered on 09/03/16 12:15; Admin Dose 650 MG; Start 08/23/16 at 16:00 Aspirin (Aspirin) 81 mg DAILY PO Last administered on 09/03/16 08:33; Admin Dose 81 MG; Start 08/24/16 at 09:00 Glucose (Glutose) 22.5 gm PRN PO ; Start 08/23/16 at 16:00 Fenofibrate (Tricor) 145 mg QAM PO Last administered on 09/03/16 08:32; Admin Dose 145 MG; Start 08/24/16 at 09:00 Lidocaine (Lidoderm) 1 patch DAILY TD Last administered on 09/03/16 08:30; Admin Dose 1 PATCH; Start 08/24/16 at 09:00 Sodium Biphosphate/ Sodium Phosphate (Fleet Enema) 133 ml DAILY PRN [place] CONSTIPATION Last administered on 08/26/16at 18:38; Admin Dose 133 ML; Start at 16:00 Senna (Senokot) 2 tab QHS PO Last administered on 09/02/16 20:55; Admin Dose 2 TAB; Start 08/23/16 at 21:00 Multivitamins/ Minerals (Theragran-M) 1 tab QAM PO Last administered on 08:33; Admin Dose 1 TAB; Start 08/24/16 at 09:00 Ondansetron HCl (Zofran Inj) 4 mg Q6H PRN IV NAUSEA AND/OR VOMITING Last administered on 08/28/16at 04:50; Admin Dose 4 MG; Start 08/23/16 at 16:30 Nitroglycerin (Nitroglycerin (Sl Tab) 0.4 Mg) 1 tab Q5M PRN SL CHEST PAIN; Start 08/23/16 at 16:30 Docusate Sodium (Colace) 100 mg Q12H PRN PO CONSTIPATION; Start 08/23/16 at 16 :30 Magnesium Hydroxide (Milk Of Mag) 30 ml DAILY PRN PO CONSTIPATION; Start 08/23 at 16:30 Bisacodyl (Dulcolax Supp) 10 mg DAILY PRN [place] CONSTIPATION Last administered on 09/03/16 10:01; Admin Dose 10 MG; Start 08/23/16 at 16:30 Enoxaparin Sodium (Lovenox) 40 mg DAILY SC Last administered on 09/03/16 08:29 ; Admin Dose 40 MG; Start 08/24/16 at 09:00 Metoprolol Tartrate (Lopressor) 25 mg BID PO Last administered on 09/02/16 20: 56; Admin Dose 25 MG; Start 08/23/16 at 21:00 Metoprolol Tartrate 5 mg 5 mg Q4H PRN IV HR>110 Hold SBP<100; Start 08/23/16 at 16:30 Cefepime HCl (Maxipime 2gm/50 ml (Pmx)) 50 ml @ 100 mls/hr Q24H IVPB Last administered on 09/02/16 20:55; Admin Dose 100 MLS/HR; Start 08/23/16 at 21:00 Famotidine (Pepcid) 20 mg DAILY PO Last administered on 09/03/16 08:32; Admin Dose 20 MG; Start 08/24/16 at 09:00 Calcium/Vitamin D (Oyster Shell/ Vit-D (500/200)) 1 tab BID PO Last administered on 09/03/16 08:32; Admin Dose 1 TAB; Start 08/23/16 at 21:00 Insulin Detemir (Levemir) 15 unit QHS SC Last administered on 09/02/16 21:01; Admin Dose 15 UNIT; Start 08/23/16 at 21:00 Atorvastatin Calcium (Lipitor) 10 mg DAILY@21 PO Last administered on 09/02/16 20:55; Admin Dose 10 MG; Start 08/23/16 at 21:00 Guaifenesin/ Codeine Phosphate (Robitussin Ac Liquid Cup) 5 ml Q6 PRN PO COUGH Last administered on 08/26/16at 21:28; Admin Dose 5 ML; Start 08/24/16 at 10:30 Ascorbic Acid (Vitamin C) 500 mg DAILY PO Last administered on 09/03/16 08:30; Admin Dose 500 MG; Start 08/28/16 at 09:00 Diagnostic Test (Pha) (Accucheck) 1 ea 02 XX Last administered on 09/01/16 02: 27; Admin Dose 1 EA; Start 08/26/16 at 02:00 Miscellaneous Information 1 ea NOTE XX ; Start 08/25/16 at 13:00 Glucose (Glutose) 15 gm Q15M PRN PO DECREASED GLUCOSE; Start 08/25/16 at 13:00 Glucose (Glutose) 22.5 gm Q15M PRN PO DECREASED GLUCOSE; Start 08/25/16 at 13: 00 Dextrose (D50w Syringe) 25 ml Q15M PRN IV DECREASED GLUCOSE; Start 08/25/16 at 13:00 Dextrose (D50w Syringe) 50 ml Q15M PRN IV DECREASED GLUCOSE; Start 08/25/16 at 13:00 Glucagon (Glucagen) 1 mg Q15M PRN IM DECREASED GLUCOSE; Start 08/25/16 at 13: 00 Glucose (Glutose) 15 gm Q15M PRN BUCCAL DECREASED GLUCOSE Last administered on 09/02/16 08:02; Admin Dose 15 GM; Start 08/25/16 at 13:00 Neomycin/ Polymyxin/ Bacitracin (Neosporin Topical Oint) 1 applic TID TOP Last administered on 09/03/16 12:21; Admin Dose 1 APPLIC; Start 08/26/16 at 23:00 Morphine Sulfate (morphine) 1 mg Q4H PRN IV PAIN LEVEL 7-10; Start 08/26/16 at 23:30 Clopidogrel Bisulfate 75 mg 75 mg DAILY PO Last administered on 09/03/16 08:32 ; Admin Dose 75 MG; Start 08/30/16 at 09:00 Sodium Chloride 1,000 ml @ 60 mls/hr [id number] IV Last administered on 09/03/16 05:35; Admin Dose 60 MLS/HR; Start 08/29/16 at 20:00 Vancomycin HCl/ Sodium Chloride (Vancocin/NS) 150 ml @ 75 mls/hr Q24H IVPB Last administered on 09/03/16 12:16; Admin Dose 75 MLS/HR; Start 08/31/16 at 13 :00 Benazepril HCl (Lotensin) 10 mg BID PO Last administered on 09/03/16 08:30; Admin Dose 10 MG; Start 09/02/16 at 21:00 NEHA WILSON Sep 03, 2016 12:57
[2016-09-03] MEDS: morphine 2 MG INJ IV PRN ×2 (13:18→18:51)
[2016-09-03] MEDS: CEFEPIME 2GM/50 ML (PMX) 50 ML IVPB SCH (21:29)
[2016-09-03] MEDS: SENNA TAB PO SCH (21:30)
[2016-09-03] MEDS: ATORVASTATIN 10 MG TAB PO SCH (21:30)
[2016-09-03] MEDS: INSULIN DETEMIR [LEVEMIR] 3ML CART SC SCH (22:00)
[2016-09-04] VITALS (12 sets, daily range): BP systolic 116–198; BP diastolic 53–86; PULSE 57–64; RESP 18–20
[2016-09-04] MEDS: ACCUCHECK XX SCH (00:52)
[2016-09-04] MEDS: INSULIN ASPART [NOVOLOG] 3 ML PEN SC SCH ×4 (08:00→21:00)
[2016-09-04] MEDS: LEVALBUTEROL (NEB) 0.63 MG/3 ML AMP HHN SCH ×2 (09:00→21:47)
[2016-09-04] MEDS: SOD CHLORIDE 0.45% 1,000 ML IV SCH ×2 (09:20→17:50)
[2016-09-04] MEDS: ENOXAPARIN 40 MG/0.4 ML SYG SC SCH (09:40)
[2016-09-04] MEDS: CALCIUM/VITAMIN D (500/200) TAB PO SCH ×2 (09:40→21:34)
[2016-09-04] MEDS: LIDOCAINE 5% PATCH TD SCH (09:40)
[2016-09-04] MEDS: ASCORBIC ACID 500 MG TAB.CHEW PO SCH (09:40)
[2016-09-04] MEDS: BENAZEPRIL 10 MG TAB PO SCH (09:41)
[2016-09-04] MEDS: MULTIVITAMINS/MINERALS TAB PO SCH (09:41)
[2016-09-04] MEDS: CLOPIDOGREL 75 MG TAB PO SCH (09:41)
[2016-09-04] MEDS: ASPIRIN 81 MG TAB PO SCH (09:41)
[2016-09-04] MEDS: FENOFIBRATE 145 MG TAB PO SCH (09:41)
[2016-09-04] MEDS: METOPROLOL 25 MG TAB PO SCH ×2 (09:42→21:33)
[2016-09-04] MEDS: NEOMYC/POLYMYX/BACIT 30 GM OINT TOP SCH ×3 (09:44→21:34)
[2016-09-04] MEDS: FAMOTIDINE 20 MG TAB PO SCH (09:44)
[2016-09-04] MEDS: ACETAMINOPHEN 325 MG TAB PO PRN (09:52)
--- NOTE | 2016-09-04 12:30 | PN ---
Date/Time of Note Date/Time of Note DATE: 09/04/16 TIME: 12:30 Assessment/Plan VTE Prophylaxis VTE Prophylaxis Intervention: LMWH Lines/Catheters IV Catheter Type (from Nrs): Peripheral IV Urinary Cath still in place: Yes Reason Cath still needed: skin wounds contaminated by urine Assessment/Plan Chief Complaint/Hosp Course 1. Healthcare facility acquired pneumonia - IV antibiotics 2. Non-ST elevation myocardial infarction - monitor 3. Hypertension - continue meds 4. Diabetes mellitus - monitor blood sugar Problems: Subjective 24 Hr Interval Summary Free Text/Dictation Patient is doing ok. Exam/Review of Systems Vital Signs Vitals Vital Signs Date Time Temp Pulse Resp B/P Pulse Ox O2 Delivery O2 Flow Rate FiO2 09/04/16 12:05 64 09/04/16 11:17 98.5 20 152/79 96 09/04/16 00:39 2.0 09/03/16 21:00 Nasal Cannula 09/02/16 19:45 28 Intake and Output 09/03/16 09/03/16 09/04/16 14:59 22:59 06:59 Intake Total 150 ml 1370 ml 1060 ml Output Total 600 ml 650 ml Balance 150 ml 770 ml 410 ml Exam Constitutional: well developed Neck: supple Respiratory: clear to auscultation Cardiovascular: regular rate and rhythm Gastrointestinal: non-tender, soft Results Result Diagram: 08/31/16 0550 09/02/16 0550 Results 24 hrs Laboratory Tests Test 09/03/16 17:05 09/03/16 21:50 09/04/16 08:35 09/04/16 12:04 Bedside Glucose 109 178 51 L 97 Medications Medications Current Medications Acetaminophen (Tylenol Tab) 1,000 mg Q4 PRN PO PAIN AND OR ELEVATED TEMP Last administered on 09/01/16 09:24; Admin Dose 1,000 MG; Start 08/23/16 at 16:00 Acetaminophen (Tylenol Tab) 650 mg Q4 PRN PO PAIN AND OR ELEVATED TEMP Last administered on 09/04/16 09:52; Admin Dose 650 MG; Start 08/23/16 at 16:00 Aspirin (Aspirin) 81 mg DAILY PO Last administered on 09/04/16 09:41; Admin Dose 81 MG; Start 08/24/16 at 09:00 Glucose (Glutose) 22.5 gm PRN PO ; Start 08/23/16 at 16:00 Fenofibrate (Tricor) 145 mg QAM PO Last administered on 09/04/16 09:41; Admin Dose 145 MG; Start 08/24/16 at 09:00 Lidocaine (Lidoderm) 1 patch DAILY TD Last administered on 09/04/16 09:40; Admin Dose 1 PATCH; Start 08/24/16 at 09:00 Sodium Biphosphate/ Sodium Phosphate (Fleet Enema) 133 ml DAILY PRN [place] CONSTIPATION Last administered on 08/26/16at 18:38; Admin Dose 133 ML; Start at 16:00 Senna (Senokot) 2 tab QHS PO Last administered on 09/03/16 21:30; Admin Dose 2 TAB; Start 08/23/16 at 21:00 Multivitamins/ Minerals (Theragran-M) 1 tab QAM PO Last administered on 09:41; Admin Dose 1 TAB; Start 08/24/16 at 09:00 Ondansetron HCl (Zofran Inj) 4 mg Q6H PRN IV NAUSEA AND/OR VOMITING Last administered on 08/28/16 04:50; Admin Dose 4 MG; Start 08/23/16 at 16:30 Nitroglycerin (Nitroglycerin (Sl Tab) 0.4 Mg) 1 tab Q5M PRN SL CHEST PAIN; Start 08/23/16 at 16:30 Docusate Sodium (Colace) 100 mg Q12H PRN PO CONSTIPATION; Start 08/23/16 at 16 :30 Magnesium Hydroxide (Milk Of Mag) 30 ml DAILY PRN PO CONSTIPATION; Start 08/23 at 16:30 Bisacodyl (Dulcolax Supp) 10 mg DAILY PRN [place] CONSTIPATION Last administered on 09/03/16 10:01; Admin Dose 10 MG; Start 08/23/16 at 16:30 Enoxaparin Sodium (Lovenox) 40 mg DAILY SC Last administered on 09/04/16 09:40 ; Admin Dose 40 MG; Start 08/24/16 at 09:00 Metoprolol Tartrate (Lopressor) 25 mg BID PO Last administered on 09/04/16 09: 42; Admin Dose 25 MG; Start 08/23/16 at 21:00 Metoprolol Tartrate 5 mg 5 mg Q4H PRN IV HR>110 Hold SBP<100; Start 08/23/16 at 16:30 Cefepime HCl (Maxipime 2gm/50 ml (Pmx)) 50 ml @ 100 mls/hr Q24H IVPB Last administered on 09/03/16 21:29; Admin Dose 100 MLS/HR; Start 08/23/16 at 21:00 Famotidine (Pepcid) 20 mg DAILY PO Last administered on 09/04/16 09:44; Admin Dose 20 MG; Start 08/24/16 at 09:00 Calcium/Vitamin D (Oyster Shell/ Vit-D (500/200)) 1 tab BID PO Last administered on 09/04/16 09:40; Admin Dose 1 TAB; Start 08/23/16 at 21:00 Insulin Detemir (Levemir) 15 unit QHS SC Last administered on 09/03/16 22:00; Admin Dose 15 UNIT; Start 08/23/16 at 21:00 Atorvastatin Calcium (Lipitor) 10 mg DAILY@21 PO Last administered on 09/03/16 21:30; Admin Dose 10 MG; Start 08/23/16 at 21:00 Guaifenesin/ Codeine Phosphate (Robitussin Ac Liquid Cup) 5 ml Q6 PRN PO COUGH Last administered on 08/26/16at 21:28; Admin Dose 5 ML; Start 08/24/16 at 10:30 Ascorbic Acid (Vitamin C) 500 mg DAILY PO Last administered on 09/04/16 09:40; Admin Dose 500 MG; Start 08/28/16 at 09:00 Diagnostic Test (Pha) (Accucheck) 1 ea 02 XX Last administered on 09/01/16 02: 27; Admin Dose 1 EA; Start 08/26/16 at 02:00 Miscellaneous Information 1 ea NOTE XX ; Start 08/25/16 at 13:00 Glucose (Glutose) 15 gm Q15M PRN PO DECREASED GLUCOSE; Start 08/25/16 at 13:00 Glucose (Glutose) 22.5 gm Q15M PRN PO DECREASED GLUCOSE; Start 08/25/16 at 13: 00 Dextrose (D50w Syringe) 25 ml Q15M PRN IV DECREASED GLUCOSE; Start 08/25/16 at 13:00 Dextrose (D50w Syringe) 50 ml Q15M PRN IV DECREASED GLUCOSE; Start 08/25/16 at 13:00 Glucagon (Glucagen) 1 mg Q15M PRN IM DECREASED GLUCOSE; Start 08/25/16 at 13: 00 Glucose (Glutose) 15 gm Q15M PRN BUCCAL DECREASED GLUCOSE Last administered on 09/02/16 08:02; Admin Dose 15 GM; Start 08/25/16 at 13:00 Neomycin/ Polymyxin/ Bacitracin (Neosporin Topical Oint) 1 applic TID TOP Last administered on 09/04/16 09:44; Admin Dose 1 APPLIC; Start 08/26/16 at 23:00 Morphine Sulfate (morphine) 1 mg Q4H PRN IV PAIN LEVEL 7-10 Last administered on 09/03/16 18:51; Admin Dose 1 MG; Start 08/26/16 at 23:30 Clopidogrel Bisulfate 75 mg 75 mg DAILY PO Last administered on 09/04/16 09:41 ; Admin Dose 75 MG; Start 08/30/16 at 09:00 Sodium Chloride 1,000 ml @ 60 mls/hr [id number] IV Last administered on 09/03/16 05:35; Admin Dose 60 MLS/HR; Start 08/29/16 at 20:00 Vancomycin HCl/ Sodium Chloride (Vancocin/NS) 150 ml @ 75 mls/hr Q24H IVPB Last administered on 09/03/16 12:16; Admin Dose 75 MLS/HR; Start 08/31/16 at 13 :00 Benazepril HCl (Lotensin) 10 mg BID PO Last administered on 09/04/16 09:41; Admin Dose 10 MG; Start 09/02/16 at 21:00 NEHA WILSON Sep 04, 2016 12:30
--- NOTE | 2016-09-04 14:04 | CONS ---
Date/Time of Note Date/Time of Note DATE: 09/04/16 TIME: 14:02 Assessment/Plan Assessment/Plan Chief Complaint/Hosp Course IMPRESSION: 1. Positive troponin consistent with non-ST elevation myocardial infarction. Possibly demand event in the setting of tachycardia.-last enzymes downtrending. Conservative management. NO [facility] planned at this time 2. Abnormal electrocardiogram with nonspecific ST and T abnormalities and poor R-wave progression across the anterior precordial leads in the setting of positive troponins. 3. Tachycardia consistent with sinus tachycardia in the setting of volume depletion. 4. Hypertension, labile and elevated at times 5. Altered mental state/encephalopathy. 6. Dyslipidemia. 7. Pneumonia by chest x-ray. Possible reason for patient's possible demand ischemia. 8. Diabetes mellitus. 9. Possible urinary tract infection. Recc: -Tele -continue asa/plavix to maximize medical therapy. -Continue BB/ACEI with slight increase to improve BP control -Continue statin -Continue abx's and f/u cx data -Follow volume status closely Problems: Consultation Date/Type/Reason Admit Date/Time Aug 23, 2016 at 09:42 Initial Consult Date 08/27/2016 Type of Consultation: cardiology Reason for Consultation HTN/Nstemi Referring Provider: VALENTIN RHOADES MD Exam/Review of Systems Vital Signs Vitals Vital Signs Date Time Temp Pulse Resp B/P Pulse Ox O2 Delivery O2 Flow Rate FiO2 09/04/16 12:05 64 09/04/16 11:17 98.5 20 152/79 96 09/04/16 08:00 Nasal Cannula 2.0 09/02/16 19:45 28 Intake and Output 09/03/16 09/03/16 09/04/16 14:59 22:59 06:59 Intake Total 150 ml 1370 ml 1060 ml Output Total 600 ml 650 ml Balance 150 ml 770 ml 410 ml Exam Review of Systems: CONSTITUTIONAL: No fevers, chills. PULMONARY: No sob CARDIOVASCULAR: No chest pain/palpitations GASTROINTESTINAL: No nausea/vomiting. GENITOURINARY: No hematuria/dysuria. MUSCULOSKELETAL: No myagias/arthalgias. PSYCHIATRIC: No documented depression. NEUROLOGIC: lethargic Constitutional: other (sleeping, arousable) Psych: no complaints Head: normocephalic ENMT: mucosa pink and moist Neck: jvd (9 cm water), supple Respiratory: diminished breath sounds (at bases/B) Cardiovascular: regular rate and rhythm Gastrointestinal: non-tender, soft Musculoskeletal: muscle tone (normal) Extremities: edema (None) Neurological: lethargic Results Result Diagram: 08/31/16 0550 09/02/16 0550 Results 24 hrs Laboratory Tests Test 09/03/16 17:05 09/03/16 21:50 09/04/16 08:35 09/04/16 12:04 Bedside Glucose 109 178 51 L 97 Medications Medications Current Medications Acetaminophen (Tylenol Tab) 1,000 mg Q4 PRN PO PAIN AND OR ELEVATED TEMP Last administered on 09/01/16 09:24; Admin Dose 1,000 MG; Start 08/23/16 at 16:00 Acetaminophen (Tylenol Tab) 650 mg Q4 PRN PO PAIN AND OR ELEVATED TEMP Last administered on 09/04/16 09:52; Admin Dose 650 MG; Start 08/23/16 at 16:00 Aspirin (Aspirin) 81 mg DAILY PO Last administered on 09/04/16 09:41; Admin Dose 81 MG; Start 08/24/16 at 09:00 Glucose (Glutose) 22.5 gm PRN PO ; Start 08/23/16 at 16:00 Fenofibrate (Tricor) 145 mg QAM PO Last administered on 09/04/16 09:41; Admin Dose 145 MG; Start 08/24/16 at 09:00 Lidocaine (Lidoderm) 1 patch DAILY TD Last administered on 09/04/16 09:40; Admin Dose 1 PATCH; Start 08/24/16 at 09:00 Sodium Biphosphate/ Sodium Phosphate (Fleet Enema) 133 ml DAILY PRN [place] CONSTIPATION Last administered on 08/26/16at 18:38; Admin Dose 133 ML; Start at 16:00 Senna (Senokot) 2 tab QHS PO Last administered on 09/03/16 21:30; Admin Dose 2 TAB; Start 08/23/16 at 21:00 Multivitamins/ Minerals (Theragran-M) 1 tab QAM PO Last administered on 09:41; Admin Dose 1 TAB; Start 08/24/16 at 09:00 Ondansetron HCl (Zofran Inj) 4 mg Q6H PRN IV NAUSEA AND/OR VOMITING Last administered on 08/28/16at 04:50; Admin Dose 4 MG; Start 08/23/16 at 16:30 Nitroglycerin (Nitroglycerin (Sl Tab) 0.4 Mg) 1 tab Q5M PRN SL CHEST PAIN; Start 08/23/16 at 16:30 Docusate Sodium (Colace) 100 mg Q12H PRN PO CONSTIPATION; Start 08/23/16 at 16 :30 Magnesium Hydroxide (Milk Of Mag) 30 ml DAILY PRN PO CONSTIPATION; Start 08/23 at 16:30 Bisacodyl (Dulcolax Supp) 10 mg DAILY PRN [place] CONSTIPATION Last administered on 09/03/16 10:01; Admin Dose 10 MG; Start 08/23/16 at 16:30 Enoxaparin Sodium (Lovenox) 40 mg DAILY SC Last administered on 09/04/16 09:40 ; Admin Dose 40 MG; Start 08/24/16 at 09:00 Metoprolol Tartrate (Lopressor) 25 mg BID PO Last administered on 09/04/16 09: 42; Admin Dose 25 MG; Start 08/23/16 at 21:00 Metoprolol Tartrate 5 mg 5 mg Q4H PRN IV HR>110 Hold SBP<100; Start 08/23/16 at 16:30 Cefepime HCl (Maxipime 2gm/50 ml (Pmx)) 50 ml @ 100 mls/hr Q24H IVPB Last administered on 09/03/16 21:29; Admin Dose 100 MLS/HR; Start 08/23/16 at 21:00 Famotidine (Pepcid) 20 mg DAILY PO Last administered on 09/04/16 09:44; Admin Dose 20 MG; Start 08/24/16 at 09:00 Calcium/Vitamin D (Oyster Shell/ Vit-D (500/200)) 1 tab BID PO Last administered on 09/04/16 09:40; Admin Dose 1 TAB; Start 08/23/16 at 21:00 Insulin Detemir (Levemir) 15 unit QHS SC Last administered on 09/03/16 22:00; Admin Dose 15 UNIT; Start 08/23/16 at 21:00 Atorvastatin Calcium (Lipitor) 10 mg DAILY@21 PO Last administered on 09/03/16 21:30; Admin Dose 10 MG; Start 08/23/16 at 21:00 Guaifenesin/ Codeine Phosphate (Robitussin Ac Liquid Cup) 5 ml Q6 PRN PO COUGH Last administered on 08/26/16at 21:28; Admin Dose 5 ML; Start 08/24/16 at 10:30 Ascorbic Acid (Vitamin C) 500 mg DAILY PO Last administered on 09/04/16 09:40; Admin Dose 500 MG; Start 08/28/16 at 09:00 Diagnostic Test (Pha) (Accucheck) 1 ea 02 XX Last administered on 09/01/16 02: 27; Admin Dose 1 EA; Start 08/26/16 at 02:00 Miscellaneous Information 1 ea NOTE XX ; Start 08/25/16 at 13:00 Glucose (Glutose) 15 gm Q15M PRN PO DECREASED GLUCOSE; Start 08/25/16 at 13:00 Glucose (Glutose) 22.5 gm Q15M PRN PO DECREASED GLUCOSE; Start 08/25/16 at 13: 00 Dextrose (D50w Syringe) 25 ml Q15M PRN IV DECREASED GLUCOSE; Start 08/25/16 at 13:00 Dextrose (D50w Syringe) 50 ml Q15M PRN IV DECREASED GLUCOSE; Start 08/25/16 at 13:00 Glucagon (Glucagen) 1 mg Q15M PRN IM DECREASED GLUCOSE; Start 08/25/16 at 13: 00 Glucose (Glutose) 15 gm Q15M PRN BUCCAL DECREASED GLUCOSE Last administered on 09/02/16 08:02; Admin Dose 15 GM; Start 08/25/16 at 13:00 Neomycin/ Polymyxin/ Bacitracin (Neosporin Topical Oint) 1 applic TID TOP Last administered on 09/04/16 09:44; Admin Dose 1 APPLIC; Start 08/26/16 at 23:00 Morphine Sulfate (morphine) 1 mg Q4H PRN IV PAIN LEVEL 7-10 Last administered on 09/03/16 18:51; Admin Dose 1 MG; Start 08/26/16 at 23:30 Clopidogrel Bisulfate 75 mg 75 mg DAILY PO Last administered on 09/04/16 09:41 ; Admin Dose 75 MG; Start 08/30/16 at 09:00 Sodium Chloride (1/2 NS) 1,000 ml @ 60 mls/hr [id number] IV Last administered on 09/03/16 05:35; Admin Dose 60 MLS/HR; Start 08/29/16 at 20:00 Benazepril HCl (Lotensin) 10 mg BID PO Last administered on 09/04/16 09:41; Admin Dose 10 MG; Start 09/02/16 at 21:00 RJ CIFUENTES Sep 04, 2016 14:04
[2016-09-04] MEDS ORDERED: BENAZEPRIL 10 MG TAB PO SCH (21:00)
[2016-09-04] MEDS: CEFEPIME 2GM/50 ML (PMX) 50 ML IVPB SCH (21:31)
[2016-09-04] MEDS: BENAZEPRIL 20 MG TAB PO SCH (21:33)
[2016-09-04] MEDS: ATORVASTATIN 10 MG TAB PO SCH (21:33)
[2016-09-04] MEDS: SENNA TAB PO SCH (21:34)
[2016-09-04] MEDS: INSULIN DETEMIR [LEVEMIR] 3ML CART SC SCH (21:37)
[2016-09-05] MEDS: ACCUCHECK XX SCH (02:00)
[2016-09-05 05:52] LABS: BASOPHIL # 0.1 10^3/ul (0.0-0.1); BASOPHILS % 0.7 % (0.0-2.0); EOSINOPHILS # 0.4 10^3/ul (0.0-0.5); HEMATOCRIT 33.2 % (37.0-47.0); HEMOGLOBIN 10.9 g/dl (12.0-16.0); LYMPHOCYTES # 3.1 10^3/ul (0.8-2.9); LYMPHOCYTES % 34.7 % (15.0-51.0); MEAN CORPUSCULAR HGB CONC 32.9 g/dl (32.0-37.0); MEAN CORPUSCULAR VOLUME 94.1 fl (82.0-101.0); MEAN PLATELET VOLUME 7.7 fl (7.4-10.4); MONOCYTE # 0.6 10^3/ul (0.3-0.9); MONOCYTES % 6.2 % (0.0-11.0); NEUTROPHIL # 4.9 10^3/ul (1.6-7.5); NEUTROPHILS % 54.4 % (39.0-77.0); PLATELET COUNT 406 10^3/UL (140-440); RED BLOOD COUNT 3.53 10^6/ul (4.20-5.40); RED CELL DISTRIBUTION WIDTH 14.1 % (11.5-14.5); UNCORRECTED WBC 9.1 10^3/ul (4.8-10.8); WHITE BLOOD COUNT 9.1 10^3/ul (4.8-10.8)
[2016-09-05 05:59] LABS: CONDITION 1
[2016-09-05 06:08] LABS: CREATININE 0.68 mg/dl (0.44-1.00)
[2016-09-05 06:09] LABS: CALCIUM 9.7 mg/dl (8.4-10.2)
[2016-09-05 07:31] VITALS: BP 122/52; RESP 14
[2016-09-05] MEDS: LEVALBUTEROL (NEB) 0.63 MG/3 ML AMP HHN SCH ×2 (08:00→19:38)
[2016-09-05] MEDS: INSULIN ASPART [NOVOLOG] 3 ML PEN SC SCH ×3 (08:00→16:31)
[2016-09-05] MEDS: FENOFIBRATE 145 MG TAB PO SCH (08:37)
[2016-09-05] MEDS: SOD CHLORIDE 0.45% 1,000 ML IV SCH (08:37)
[2016-09-05] MEDS: CLOPIDOGREL 75 MG TAB PO SCH (08:38)
[2016-09-05] MEDS: CALCIUM/VITAMIN D (500/200) TAB PO SCH (08:38)
[2016-09-05] MEDS: LIDOCAINE 5% PATCH TD SCH (08:38)
[2016-09-05] MEDS: ASPIRIN 81 MG TAB PO SCH (08:38)
[2016-09-05] MEDS: METOPROLOL 25 MG TAB PO SCH (08:38)
[2016-09-05] MEDS: BENAZEPRIL 20 MG TAB PO SCH (08:38)
[2016-09-05] MEDS: FAMOTIDINE 20 MG TAB PO SCH (08:38)
[2016-09-05] MEDS: MULTIVITAMINS/MINERALS TAB PO SCH (08:38)
[2016-09-05] MEDS: ASCORBIC ACID 500 MG TAB.CHEW PO SCH (08:38)
[2016-09-05] MEDS: ENOXAPARIN 40 MG/0.4 ML SYG SC SCH (08:39)
[2016-09-05] MEDS: ACETAMINOPHEN 500 MG TAB PO PRN (09:49)
[2016-09-05] MEDS: NEOMYC/POLYMYX/BACIT 30 GM OINT TOP SCH ×2 (12:55→13:00)
--- NOTE | 2016-09-05 13:18 | DS ---
Date/Time of Note Date/Time of Note DATE: 09/05/16 TIME: 13:14 Discharge Summary Admission/Discharge Info Admit Date/Time Aug 23, 2016 at 09:42 Discharge Date/Time 09/05/16 Final Diagnosis 1) pneumonia 2) coronary artery disease 3) cerebrovascular accident Patient Condition: Fair Consults Cardiology Hospital Course Patient came in with pneumonia and treated with intravenous antibiotics. She slowly improved but at discharge was back to her baseline state. She also had a question regarding her coronary artery disease and had consultation with cardiology. She was found to be stable IMPRESSION: 1. Positive troponin consistent with non-ST elevation myocardial infarction. Possibly demand event in the setting of tachycardia.-last enzymes downtrending. Conservative management. NO [facility] planned at this time 2. Abnormal electrocardiogram with nonspecific ST and T abnormalities and poor R-wave progression across the anterior precordial leads in the setting of positive troponins. 3. Tachycardia consistent with sinus tachycardia in the setting of volume depletion. 4. Hypertension, labile and elevated at times 5. Altered mental state/encephalopathy. 6. Dyslipidemia. 7. Pneumonia by chest x-ray. Possible reason for patient's possible demand ischemia. 8. Diabetes mellitus. 9. Possible urinary tract infection. Recc: -Tele -continue asa/plavix to maximize medical therapy. -Continue BB/ACEI with slight increase to improve BP control -Continue statin -Continue abx's and f/u cx data -Follow volume status closely Home Meds Reported Medications Cran/Vitc/Mannose/Inulin/Brom (Uti-Stat Liquid) 3,875 Mg/30 Ml Liquid, 3875 MG PO BID 08/23/16 Acetaminophen* (Acetaminophen*) 500 MG Extra Strength Tablet, 1000 MG PO Q4 Y for PAIN AND OR ELEVATED TEMP, TAB 08/23/16 Sennosides* (Senna Lax*) 8.6 Mg Tablet, 2 TAB PO QHS, TAB 08/23/16 Magnesium Hydroxide* (Milk Of Magnesia*) 400 Mg/5 Ml Oral.susp, 30 ML PO DAILY Y for CONSTIPATION, ML 08/23/16 Lidocaine (Lidoderm) 1 Each Adh..patch, 1 EACH TP DAILY 12 HOURS ON 12 HOURS OFF 08/23/16 Dextrose (Glucose Gel) 38 Gm Gel..gram., 22.5 GM PO PRN 08/23/16 Glucagon,Human Recombinant (Glucagon Emergency Kit) 1 Mg Kit, 1 MG IJ PRN, KIT 08/23/16 Na Phos,M-B/Na Phos,Di-Ba (Enema) 133 Ml Enema, 133 ML RC EVERY 3 DAYS Y for CONSTIPATION, ENEMA 08/23/16 Bisacodyl* (Bisacodyl*) 10 Mg Supp, 10 MG TN EVERY 48 HOURS Y for CONSTIPATION, SUPP 08/23/16 Cranberry Extract (Cranberry) 425 Mg Capsule, 425 MG PO DAILY, CAP 08/23/16 Insulin Detemir (Levemir) 100 Unit/1 Ml Vial, 15 UNIT SC QHS, VIAL 08/23/16 Acetaminophen* (Acetaminophen*) 650 Mg Tablet, 650 MG PO Q4 Y for PAIN AND OR ELEVATED TEMP, #30 TAB 12/28/15 Fenofibrate Nanocrystallized* (Tricor*) 145 Mg Tablet, 145 MG PO QAM, TAB 12/28/15 Simvastatin* (Zocor*) 20 Mg Tablet, 20 MG PO QHS, #30 TAB 12/28/15 Calcium Carbonate/Vitamin D3 (Oyster Shell Calcium-Vit D Tab) 1 Tab Tablet, 1 TAB PO BID, TAB 12/28/15 Multivit &Minerals/Ferrous Fum (MULTIVITAMIN LIQUID) 9 Mg/15 Ml Liquid, 3 MG PO QAM 12/28/15 Metformin* (Glucophage*) 1,000 Mg Tablet, 1000 MG PO BID, #60 TAB 12/28/15 Alendronate Sodium* (Fosamax*) 70 Mg Tablet, 70 MG PO ON TUESDAYS, #4 TAB 12/28/15 Docusate Sodium* (Colace*) 100 Mg Capsule, 200 MG PO QHS Y for CONSTIPATION, # 30 CAP 12/28/15 Aspirin* (Aspirin* Chew) 81 Mg Tab.chew, 81 MG PO DAILY, TAB.CHEW 12/28/15 Pending Labs Laboratory Tests Test 09/04/16 17:53 09/04/16 20:10 09/05/16 04:15 09/05/16 07:06 Bedside Glucose 137mg/dL (70-220) 99mg/dL (70-220) 92mg/dL (70-220) Anion Gap 13 (8-16) Basophils # 0.110^3/ul (0.0-0.1) Basophils % 0.7% (0.0-2.0) Blood Urea Nitrogen 17mg/dl (7-20) Calcium Level 9.7mg/dl (8.4-10.2) Carbon Dioxide Level 30mmol/L (21-31) Chloride Level 106mmol/L (97-110) Creatinine 0.68mg/dl (0.44-1.00) Eosinophils # 0.410^3/ul (0.0-0.5) Eosinophils % 4.0% (0.0-7.0) Glucose Level 92mg/dl (70-220) Hematocrit 33.2% (37.0-47.0) Hemoglobin 10.9g/dl (12.0-16.0) Lymphocytes # 3.110^3/ul (0.8-2.9) Lymphocytes % 34.7% (15.0-51.0) Mean Corpuscular Hemoglobin 31.0pg (29.0-33.0) Mean Corpuscular Hemoglobin Concent 32.9g/dl (32.0-37.0) Mean Corpuscular Volume 94.1fl (82.0-101.0) Mean Platelet Volume 7.7fl (7.4-10.4) Monocytes # 0.610^3/ul (0.3-0.9) Monocytes % 6.2% (0.0-11.0) Neutrophils # 4.910^3/ul (1.6-7.5) Neutrophils % 54.4% (39.0-77.0) Nucleated Red Blood Cells # 0.010^3/ul (0.0-0.0) Nucleated Red Blood Cells % 0.0/100WBC (0.0-0.0) Platelet Count 45404^3/UL (140-440) Potassium Level 4.0mmol/L (3.5-5.1) Red Blood Count 3.5310^6/ul (4.20-5.40) Red Cell Distribution Width 14.1% (11.5-14.5) Sodium Level 145mmol/L (135-144) White Blood Count 9.110^3/ul (4.8-10.8) Test 09/05/16 11:10 Bedside Glucose 142mg/dL (70-220) NEHA WILSON Sep 05, 2016 13:17
--- NOTE | 2016-09-05 13:40 | CONS ---
Date/Time of Note Date/Time of Note DATE: 09/05/16 TIME: 13:38 Assessment/Plan Assessment/Plan Chief Complaint/Hosp Course IMPRESSION: 1. Positive troponin consistent with non-ST elevation myocardial infarction. Possibly demand event in the setting of tachycardia.-last enzymes downtrending. Conservative management. NO [facility] planned at this time 2. Abnormal electrocardiogram with nonspecific ST and T abnormalities and poor R-wave progression across the anterior precordial leads in the setting of positive troponins. 3. Tachycardia consistent with sinus tachycardia in the setting of volume depletion. 4. Hypertension, labile and elevated at times 5. Altered mental state/encephalopathy. 6. Dyslipidemia. 7. Pneumonia by chest x-ray. Possible reason for patient's possible demand ischemia. 8. Diabetes mellitus. 9. Possible urinary tract infection. Recc: -Now transferred to [facility]-surg -continue asa/plavix to maximize medical therapy. -Continue BB/ACEI with slight increase to improve BP control -Continue statin -Continue abx's and f/u cx data -Follow volume status closely Problems: Consultation Date/Type/Reason Admit Date/Time Aug 23, 2016 at 09:42 Initial Consult Date 08/27/2016 Type of Consultation: cardiology Reason for Consultation Nstemi Referring Provider: VALENTIN RHOADES MD Exam/Review of Systems Vital Signs Vitals Vital Signs Date Time Temp Pulse Resp B/P Pulse Ox O2 Delivery O2 Flow Rate FiO2 09/05/16 08:00 2.0 09/05/16 08:00 67 18 100 Nasal Cannula 09/05/16 07:31 98.1 122/52 09/02/16 19:45 28 Intake and Output 09/04/16 09/04/16 09/05/16 15:00 23:00 07:00 Intake Total 360 ml 700 ml Output Total 600 ml 300 ml Balance -240 ml 400 ml Exam Review of Systems: CONSTITUTIONAL: No fevers, chills. PULMONARY: No sob CARDIOVASCULAR: No chest pain/palpitations GASTROINTESTINAL: No nausea/vomiting. GENITOURINARY: No hematuria/dysuria. MUSCULOSKELETAL: No myagias/arthalgias. PSYCHIATRIC: The patient denies depression. NEUROLOGIC: lethargic Constitutional: alert, non-verbal Psych: no complaints Head: normocephalic ENMT: mucosa pink and moist Neck: jvd (8 cm water), supple Respiratory: diminished breath sounds (at bases/B) Cardiovascular: regular rate and rhythm Gastrointestinal: non-tender, soft Musculoskeletal: muscle tone (normal) Extremities: edema (none) Neurological: lethargic Results Result Diagram: 09/05/16 0415 09/05/16 0415 Results 24 hrs Laboratory Tests Test 09/04/16 17:53 09/04/16 20:10 09/05/16 04:15 09/05/16 07:06 Bedside Glucose 137 99 92 Anion Gap 13 Basophils # 0.1 Basophils % 0.7 Blood Urea Nitrogen 17 Calcium Level 9.7 Carbon Dioxide Level 30 Chloride Level 106 Creatinine 0.68 Eosinophils # 0.4 Eosinophils % 4.0 Glucose Level 92 Hematocrit 33.2 L Hemoglobin 10.9 L Lymphocytes # 3.1 H Lymphocytes % 34.7 Mean Corpuscular Hemoglobin 31.0 Mean Corpuscular Hemoglobin Concent 32.9 Mean Corpuscular Volume 94.1 Mean Platelet Volume 7.7 Monocytes # 0.6 Monocytes % 6.2 Neutrophils # 4.9 Neutrophils % 54.4 Nucleated Red Blood Cells # 0.0 Nucleated Red Blood Cells % 0.0 Platelet Count 406 Potassium Level 4.0 Red Blood Count 3.53 L Red Cell Distribution Width 14.1 Sodium Level 145 H White Blood Count 9.1 Test 09/05/16 11:10 Bedside Glucose 142 Medications Medications Current Medications Acetaminophen (Tylenol Tab) 1,000 mg Q4 PRN PO PAIN AND OR ELEVATED TEMP Last administered on 09/05/16 09:49; Admin Dose 1,000 MG; Start 08/23/16 at 16:00 Acetaminophen (Tylenol Tab) 650 mg Q4 PRN PO PAIN AND OR ELEVATED TEMP Last administered on 09/04/16 09:52; Admin Dose 650 MG; Start 08/23/16 at 16:00 Aspirin (Aspirin) 81 mg DAILY PO Last administered on 09/05/16 08:38; Admin Dose 81 MG; Start 08/24/16 at 09:00 Glucose (Glutose) 22.5 gm PRN PO ; Start 08/23/16 at 16:00 Fenofibrate (Tricor) 145 mg QAM PO Last administered on 09/05/16 08:37; Admin Dose 145 MG; Start 08/24/16 at 09:00 Lidocaine (Lidoderm) 1 patch DAILY TD Last administered on 09/05/16 08:38; Admin Dose 1 PATCH; Start 08/24/16 at 09:00 Sodium Biphosphate/ Sodium Phosphate (Fleet Enema) 133 ml DAILY PRN [place] CONSTIPATION Last administered on 08/26/16at 18:38; Admin Dose 133 ML; Start at 16:00 Senna (Senokot) 2 tab QHS PO Last administered on 09/04/16 21:34; Admin Dose 2 TAB; Start 08/23/16 at 21:00 Multivitamins/ Minerals (Theragran-M) 1 tab QAM PO Last administered on 08:38; Admin Dose 1 TAB; Start 08/24/16 at 09:00 Ondansetron HCl (Zofran Inj) 4 mg Q6H PRN IV NAUSEA AND/OR VOMITING Last administered on 08/28/16 04:50; Admin Dose 4 MG; Start 08/23/16 at 16:30 Nitroglycerin (Nitroglycerin (Sl Tab) 0.4 Mg) 1 tab Q5M PRN SL CHEST PAIN; Start 08/23/16 at 16:30 Docusate Sodium (Colace) 100 mg Q12H PRN PO CONSTIPATION; Start 08/23/16 at 16 :30 Magnesium Hydroxide (Milk Of Mag) 30 ml DAILY PRN PO CONSTIPATION; Start 08/23 at 16:30 Bisacodyl (Dulcolax Supp) 10 mg DAILY PRN [place] CONSTIPATION Last administered on 09/03/16 10:01; Admin Dose 10 MG; Start 08/23/16 at 16:30 Enoxaparin Sodium (Lovenox) 40 mg DAILY SC Last administered on 09/05/16 08:39 ; Admin Dose 40 MG; Start 08/24/16 at 09:00 Metoprolol Tartrate (Lopressor) 25 mg BID PO Last administered on 09/04/16 21: 33; Admin Dose 25 MG; Start 08/23/16 at 21:00 Metoprolol Tartrate 5 mg 5 mg Q4H PRN IV HR>110 Hold SBP<100; Start 08/23/16 at 16:30 Cefepime HCl (Maxipime 2gm/50 ml (Pmx)) 50 ml @ 100 mls/hr Q24H IVPB Last administered on 09/04/16 21:31; Admin Dose 100 MLS/HR; Start 08/23/16 at 21:00 Famotidine (Pepcid) 20 mg DAILY PO Last administered on 09/05/16 08:38; Admin Dose 20 MG; Start 08/24/16 at 09:00 Calcium/Vitamin D (Oyster Shell/ Vit-D (500/200)) 1 tab BID PO Last administered on 09/05/16 08:38; Admin Dose 1 TAB; Start 08/23/16 at 21:00 Insulin Detemir (Levemir) 15 unit QHS SC Last administered on 09/04/16 21:37; Admin Dose 15 UNIT; Start 08/23/16 at 21:00 Atorvastatin Calcium (Lipitor) 10 mg DAILY@21 PO Last administered on 09/04/16 21:33; Admin Dose 10 MG; Start 08/23/16 at 21:00 Guaifenesin/ Codeine Phosphate (Robitussin Ac Liquid Cup) 5 ml Q6 PRN PO COUGH Last administered on 08/26/16at 21:28; Admin Dose 5 ML; Start 08/24/16 at 10:30 Ascorbic Acid (Vitamin C) 500 mg DAILY PO Last administered on 09/05/16 08:38; Admin Dose 500 MG; Start 08/28/16 at 09:00 Diagnostic Test (Pha) (Accucheck) 1 ea 02 XX Last administered on 09/01/16 02: 27; Admin Dose 1 EA; Start 08/26/16 at 02:00 Miscellaneous Information 1 ea NOTE XX ; Start 08/25/16 at 13:00 Glucose (Glutose) 15 gm Q15M PRN PO DECREASED GLUCOSE; Start 08/25/16 at 13:00 Glucose (Glutose) 22.5 gm Q15M PRN PO DECREASED GLUCOSE; Start 08/25/16 at 13: 00 Dextrose (D50w Syringe) 25 ml Q15M PRN IV DECREASED GLUCOSE; Start 08/25/16 at 13:00 Dextrose (D50w Syringe) 50 ml Q15M PRN IV DECREASED GLUCOSE; Start 08/25/16 at 13:00 Glucagon (Glucagen) 1 mg Q15M PRN IM DECREASED GLUCOSE; Start 08/25/16 at 13: 00 Glucose (Glutose) 15 gm Q15M PRN BUCCAL DECREASED GLUCOSE Last administered on 09/02/16 08:02; Admin Dose 15 GM; Start 08/25/16 at 13:00 Neomycin/ Polymyxin/ Bacitracin (Neosporin Topical Oint) 1 applic TID TOP Last administered on 09/05/16 12:55; Admin Dose 1 APPLIC; Start 08/26/16 at 23:00 Morphine Sulfate (morphine) 1 mg Q4H PRN IV PAIN LEVEL 7-10 Last administered on 09/03/16 18:51; Admin Dose 1 MG; Start 08/26/16 at 23:30 Clopidogrel Bisulfate 75 mg 75 mg DAILY PO Last administered on 09/05/16 08:38 ; Admin Dose 75 MG; Start 08/30/16 at 09:00 Sodium Chloride (1/2 NS) 1,000 ml @ 60 mls/hr [id number] IV Last administered on 09/05/16 08:37; Admin Dose 60 MLS/HR; Start 08/29/16 at 20:00 Benazepril HCl (Lotensin) 20 mg BID PO Last administered on 09/05/16 08:38; Admin Dose 20 MG; Start 09/04/16 at 21:00 RJ CIFUENTES Sep 05, 2016 13:40
[2016-09-05 19:37] VITALS: BP 153/63; RESP 18
[2016-09-05] MEDS: ACETAMINOPHEN 325 MG TAB PO PRN (19:48)
[2016-09-05 20:30] VITALS: BP 141/64
--- NOTE | 2016-09-10 14:09 | PQ ---
Date/Time of Note Date/Time of Note DATE: 09/10/16 TIME: 13:[address] Bejarano, A review of the medical record found a need for documentation clarification. 89F ER- Tachycardia, tachypnea and leukocytosis consistent with systemic inflammatory response syndrome with lactate of 3.0 consistent with severe sepsis secondary to pneumonia. Repeat lactate increased to 4.1 consistent with septic shock. H & P -1. Healthcare facility acquired pneumonia. 7- Toxic metabolic encephalopathy. 08/23 - WBC - 14.4 HR = 130 , 100 Urine + E. Coli Meds: Cefepime HCL IV + Vancomycin IV + Levofloxacin IV Do you concur with ER Clinical Impression ? Please clarify a diagnosis being treated. To facilitate accurate and complete coding, please ondina ( x ) the suspected diagnosis that apply: ( ) Yes, sepsis present on admission ( ) No clinical sign of sepsis ( ) SIRS due to infectious process with severe sepsis ( ) SIRS due to non-infectious process without sepsis ( ) Other ( ) Clinically undetermined We do appreciate your response. Thank you for your time. Pablo Rivera RN, BSN, CCS, CCDS Clinical [employer] Health Information Management, CDI and Coding Services [phone] Room # 1525 - [address]~ [id number] PABLO RIVERA Sep 10, 2016 14:05
--- NOTE | 2016-09-11 11:52 | PQ ---
Date/Time of Note Date/Time of Note DATE: 09/11/16 TIME: 11:49 Physician Query PABLO RIVERA Sep 11, 2016 11:51 89F ER- "consistent with systemic inflammatory response syndrome with lactate of 3.0 consistent with severe sepsis secondary to pneumonia." Repeat lactate increased to 4.1 consistent with septic shock. H & P -1. Healthcare facility acquired pneumonia. 7- Toxic metabolic encephalopathy. 08/23 - WBC - 14.4 HR = 130 , 100 Urine + E. Coli Meds: Cefepime HCL IV + Vancomycin IV + Levofloxacin IV Do you concur with ER Clinical Impression ? Please clarify a diagnosis being treated. To facilitate accurate and complete coding, please ondina ( x ) the suspected diagnosis that apply: ( ) Yes, sepsis present on admission ( ) No clinical sign of sepsis ( ) SIRS due to infectious process with severe sepsis ( ) SIRS due to non-infectious process without sepsis ( ) Other ( ) Clinically undetermined We do appreciate your response. Thank you for your time. Pablo Rivera RN, BSN, CCS, CCDS Clinical [employer] Health Information Management, CDI and Coding Services [phone] Room # 1525 - [address]~ [id number] PABLO RIVERA Sep 11, 2016 11:51
== END 2016-09-05 20:46 | DRG 871 ==
LOC: E/R 05:23 → MS4 09:42 → PP2 09-05 02:25
PROVIDERS: ADMIT Internal Medicine; ATTEND Internal Medicine
DX: A41.9 Sepsis, unspecified organism (principal); I21.4 Non-ST elevation (NSTEMI) myocardial infarction; G92 Toxic encephalopathy; J18.9 Pneumonia, unspecified organism; R13.10 Dysphagia, unspecified; I27.2 Other secondary pulmonary hypertension; N39.0 Urinary tract infection, site not specified; I69.854 Hemiplegia and hemiparesis following other cerebrovascular disease affecting left non-dominant side; R65.20 Severe sepsis without septic shock; I10 Essential (primary) hypertension; E11.9 Type 2 diabetes mellitus without complications; F03.90 Unspecified dementia, unspecified severity, without behavioral disturbance, psychotic disturbance, mood disturbance, and anxiety; Y95 Nosocomial condition; Z66 Do not resuscitate
CPT/HCPCS: 36415; 71010; 80048; 80053; 80061; 80202; 81001; 81003; 82550; 82553; 82565; 82962; 83605; 83690; 83735; 83880; 84100; 84439; 84443; 84484; 84520; 85025; 85610; 85730; 87040; 87081; 87086; 88300; 88304; 90686; 93005; 93306; 94640; 94664; 96372; 96374; 96375; 96376; 97001; J1650; J1815; J1956; J2270; J2405; J3370; J3480; J7030